=== PATIENT | female | born 1965 | race Caucasian/White ===

== ENCOUNTER 2023-05-25 12:44 | Outpatient (REF) | payer MEDICARE, MEDICAID, SELFPAY ==
[2023-05-27 14:47] LABS: H Pylori Breath Test Negative (Negative)
== END 2023-05-25 12:45 | disposition home or self-care (01) ==
LOC: HO.LNP 12:44
PROVIDERS: PCP Internal Medicine; Visit Provider Surgery
DX: R10.13 Epigastric pain (principal); R13.10 Dysphagia, unspecified; G80.9 Cerebral palsy, unspecified; K59.00 Constipation, unspecified; Z99.89 Dependence on other enabling machines and devices; Z11.0 Encounter for screening for intestinal infectious diseases
CPT/HCPCS: 83013; 99202; 99211

== ENCOUNTER 2023-05-25 12:44 | Outpatient (AMB) | payer MEDICARE, MEDICAID, SELFPAY ==
--- NOTE | 2023-05-25 12:46 | A.OFFVIS_ITS ---
Intake Vital Signs 05/25/23 12:53 Height 5 ft 3 in Weight 132 lb 4.438 oz BMI 23.4 BP 141/65 H Blood Pressure Location Rt brachial Position Sitting Temp 97.5 F Temp Source Tympanic Pulse Oximetry (%) 97 Oxygen Delivery Method Room Air Intake Visit Reasons: Abdominal Pain Intake Note: Pt c/o: nausea and vomiting x 6 months with pain mid abdomen Pie Cutter Required: No Asparagus Buncher: Asparagus Buncher Present Allergies No Known Allergies Allergy (Verified 05/25/23 12:56) HPI HPI Comments History of Present Illness Details The patient is a 57-year-old woman reports a history of cerebral palsy who scheduled an evaluation because of epigastric pain associated with dysphagia and vomiting. Patient denies any hematemesis or unexplained weight loss and also notes a history of constipation in spite of a bowel regiment which includes docusate, 100 mg b.i.d.. The patient is given permission to coordinate her care with her PCP and neurologist. She notes that over the past 6 months, she has been having difficulty initiating swallowing which is typically worse with solid food rather than liquids. She notes at times she will also feel very bloated and have fairly immediate emesis which is nonbloody. She reports a history of a colonoscopy in the past few years and also notes that she had blood work in the past month or so and requested that we reach out to her PCP to avoid duplications. She is on meloxicam but notes that she only takes it a few times a week. She does note some worsening dysphagia with pills. Past surgical history includes a C-spine fusion/diskectomy Jan, 2022 and a history of an appendectomy The patient uses a cane for balance and also notes that her tremulousness has worsened over the past 6 months. [facility] Surgical History (Updated 05/25/23 @ 13:29 by Renetta Yeboah CMA) Hx of appendectomy Hx of discectomy Social History (Updated 05/25/23 @ 13:00 by Renetta Yeboah CMA) Alcohol intake: current Alcohol intake frequency: a few times a month Alcohol type: beer Patient Tobacco Use Status: Never used Tobacco Review of Systems Const All systems reviewed & are unremarkable except as noted in HPI and below Reports as per HPI Physical Exam Vital Signs: Last Vital Signs Temp 97.5 F 05/25/23 12:53 BP 141/65 H 05/25/23 12:53 Pulse Ox 97 08/28/23 12:53 Oxygen Delivery Method Room Air 05/25/23 12:53 BMI result Body Mass Index 23.4 The patient is non-toxic & in good spirits NC/AT, PERRLA, EOMI Mood, affect & judgment all appear appropriate Sclera anicteric conjunctiva pink and moist Oropharynx is clear with no aphthous ulcers, Mallampati class 4, mucous membranes moist The patient appears to have some right-sided facial droop which she reports is chronic. She also intermittently stutters. Neck is supple with no masses, adenopathy or bruits Heart is regular, normal S1-S2 no rubs or murmurs Lungs are clear and equal anteriorly with no audible wheezing, rubs or dullness to percussion Abdomen is overweight with no demonstrable hernias. She reports epigastric pain on palpation but no HSM, rebound, rigidity, guarding, masses or bruits are present. Rectal exam is deferred Skin has good turgor and is free of rashes Extremities free of cyanosis clubbing edema Results Reviewed Results Reviewed: Will ask office staff to reach out to the patient's PCP and neurologist for most recent lab work as well as confirm that the patient has had a colonoscopy in the past couple years; any other GI procedures or interventions will also be requested Assessment & Plan Assessment & Plan (1) Acute epigastric pain: Code(s): R10.13 - Epigastric pain (2) Dysphagia: Code(s): R13.10 - Dysphagia, unspecified (3) Cerebral palsy: Code(s): G80.9 - Cerebral palsy, unspecified (4) Constipation: Code(s): K59.00 - Constipation, unspecified (5) Ambulates with cane: Code(s): Z99.89 - Dependence on other enabling machines and devices Plan The patient reports fairly constant epigastric pain; since she has an eaten for several hours, I have ordered an H pylori breath test and also sent a prescription for Protonix to her pharmacy with instructions to begin it either tonight or tomorrow. She is also instructed to continue taking the medication until she sees me in follow-up. There is no hematemesis, unexplained weight loss or odynophagia to mandate endoscopy at this time; I have ordered an upper GI with Gastrografin and fluoroscopy since the patient notes cervical esophagus initiation issues. We discussed that she may need an upper endoscopy and the option of being evaluated by a commissary superintendent but we will discuss at follow- up. We will obtain records from her PCP and neurologist. The patient is describing worsening constipation in spite of taking docusate, 100 mg b.i.d.. She may need to increase this dose but I want to be sure that her colonoscopy is up-to-date and there was no significant pathology. Using a teaching electrician rectifier maintenance we reviewed possible etiologies for epigastric pain and the possible need for additional testing which may include CT or ultrasound but that we would discuss this at her follow-up visit after I have reviewed her labs and upper GI. Her questions seemed to be satisfactorily answered. She is requested that I send a copy of this note to her both her PCP in her neurolog ist. Orders: Orders H Pylori Breath Test Today R10.13 - Epigastric pain FL upper GI series Today R10.13 - Epigastric pain, R13.10 - Dysphagia, unspecified Medications: New pantoprazole 40 mg PO DAILY 30 tabs 2RF Coding Level of Care Code New Pt Level 4 (50321) Diagnoses Acute epigastric pain R10.13 Dysphagia R13.10 Cerebral palsy G80.9 Constipation K59.00 Ambulates with cane Z99.89
[2023-05-25 12:53] VITALS: BP 141/65; TEMP 36.4; O2SAT 97; BMI 23.4
== END 2023-05-25 14:21 | disposition home or self-care (01) ==
PROVIDERS: PCP Internal Medicine; Visit Provider Surgery
DX: R10.13 Epigastric pain (principal); R13.10 Dysphagia, unspecified; G80.9 Cerebral palsy, unspecified; K59.00 Constipation, unspecified; Z99.89 Dependence on other enabling machines and devices
CPT/HCPCS: 99204

== ENCOUNTER 2023-07-31 07:59 | Outpatient (REF) | payer MEDICARE, MEDICAID, SELFPAY ==
--- NOTE | ~2023-07-31 | FL_ITS ---
EXAMINATION: XR FLUOROSCOPY UPPER GI WITH AIR CLINICAL INFORMATION: Dysphasia. Epigastric pain. Cerebral palsy COMPARISON: None TECHNIQUE: Fluoroscopic air contrast upper GI examination was performed utilizing standard techniques with thin and thick barium and effervescent granules. Numerous spot images were obtained. Several image hold fluoroscopic cine runs were also obtained. FINDINGS: Patient is status post anterior fusion of C5-C7. No indentation upon the superiormost esophagus. Lateral cine images of the oropharynx and hypopharynx demonstrate normal swallow mechanism with normal epiglottic inversion and soft palate elevation. There is trace penetration of the trachea with thick barium. No nasopharyngeal reflux present. Hypopharyngeal structures appear normal without evidence of mass or diverticulum. There was no significant cricopharyngeal achalasia. Dual and single contrast images of the esophagus demonstrate normal caliber, contour, and mucosal pattern. No evidence of stricture, mass, or ulcerations identified. Primary esophageal peristalsis was normal. There are some nonpropulsive tertiary contractions of the distal esophagus. A small hiatal hernia is present. Gastroesophageal reflux is seen up to the thoracic inlet. Dual contrast and single contrast images of the stomach demonstrated normal contour without evidence of mass. There is a small area of pooling in the fundus that may represent a small gastric ulcer. Contrast freely passed into the gastric antrum and duodenal bulb without delay. Single and air-contrast images of the duodenal bulb demonstrate no abnormality. The duodenal sweep has a normal appearance, course, and mucosal fold appearance. The imaged proximal jejunum has a normal fold pattern and caliber. FLUOROSCOPY TIME: 3 minutes 22 seconds Number of Spot Images: 12 Number of cine:5 DOSE AREA PRODUCT: 1755 uGy-m2 (microgray-meter squared) FL/FL upper GI series IMPRESSION: 1. Persistent mild penetration of the larynx with thick barium. No subglottic aspiration. 2. Small type I hiatal hernia. 3. Gastroesophageal reflux, significant. Mild esophageal dysmotility. 4. Small persistent focus of pooling of barium in the posterior fundus that may represent a small gastric ulcer. Correlation with endoscopy could be considered. This procedure was performed by Weston Fu PA-C, and supervised by Dr. Estrella
== END 2023-07-31 08:00 | disposition home or self-care (01) ==
LOC: HO.XRAY 07:59
PROVIDERS: Visit Provider Surgery
DX: R13.10 Dysphagia, unspecified (principal); R10.13 Epigastric pain
CPT/HCPCS: 74240

== ENCOUNTER → 2023-07-31 08:01 | Outpatient (BNV) | payer MEDICARE, MEDICAID, SELFPAY | PROVIDERS: Visit Provider Radiology Diagnostic Radiology | DX: G80.9 Cerebral palsy, unspecified (principal); R13.10 Dysphagia, unspecified; R10.13 Epigastric pain | CPT/HCPCS: 74246 ==

== ENCOUNTER 2023-08-06 12:50 | Outpatient (AMB) | payer MEDICARE, MEDICAID, SELFPAY ==
--- NOTE | 2023-08-06 12:53 | MHC.OFFVIS ---
Intake Vital Signs 08/06/23 12:58 Height 5 ft 3 in Weight 134 lb 14.766 oz BMI 23.9 BP 152/66 H Blood Pressure Location Lt brachial Position Sitting Pulse 99 Pulse Source Pulse Oximeter Temp 96.9 F Temp Source Tympanic Pulse Oximetry (%) 96 Oxygen Delivery Method Room Air Intake Visit Reasons: follow up hiatal hernia Allergies No Known Allergies Allergy (Verified 08/06/23 13:00) HPI HPI Comments History of Present Illness Details The patient is a 57-year-old woman reports a history of cerebral palsy who scheduled an evaluation because of epigastric pain associated with dysphagia and vomiting. Patient denies any hematemesis or unexplained weight loss and also notes a history of constipation in spite of a bowel regiment which includes docusate, 100 mg b.i.d.. The patient has had continued symptoms and notes no improvement from the pantoprazole that I prescribed at 40 mg daily. She notes ongoing issues with constipation as well as her dysphagia and GERD. She otherwise denies interval change. The patient has given me permission to coordinate her care with her PCP and neurologist. She notes that over the past 6 months, she has been having difficulty initiating swallowing which is typically worse with solid food rather than liquids. She notes at times she will also feel very bloated and have fairly immediate emesis which is nonbloody. She reports a history of a colonoscopy in the past few years and also notes that she had blood work in the past month or so and requested that we reach out to her PCP to avoid duplications. She is on meloxicam but notes that she only takes it a few times a week. She does note some worsening dysphagia with pills. Notes dated 05/08/2023 (104 pgs received) from the patient's PCP indicate that a GI referral was pending due to the patient's UGI complaints and symptoms. Past surgical history includes a C-spine fusion/diskectomy Jan, 2022 and a history of an appendectomy The patient uses a cane for balance and also notes that her tremulousness has worsened over the past 6 months. [facility] Surgical History Hx of discectomy Hx of appendectomy Social History Alcohol intake: current Alcohol intake frequency: a few times a month Alcohol type: beer Patient Tobacco Use Status: Never used Tobacco Review of Systems Const All systems reviewed & are unremarkable except as noted in HPI and below Reports as per HPI Physical Exam On exam, the patient is nontoxic She is anicteric She is in no acute distress and having no respiratory difficulty Results Reviewed Results Reviewed: Labs from mid April obtained from the PCP including hemoglobin of 14.4 with normochromic/normocytic indices, white blood cell count 5.7, platelet count 148 K BUN 15, creatinine 0.73, normal electrolytes Albumin 4.3 Diagnostic imaging Upper GI done here at [facility] on 07/31/23 showed esophageal dysmotility and a small hiatal hernia with GERD but no evidence of aspiration H.pylori breath test is negative. Assessment & Plan Assessment & Plan (1) Cerebral palsy: Code(s): G80.9 - Cerebral palsy, unspecified (2) Dysphagia: Code(s): R13.10 - Dysphagia, unspecified (3) Acute epigastric pain: Code(s): R10.13 - Epigastric pain (4) Constipation: Code(s): K59.00 - Constipation, unspecified (5) Ambulates with cane: Code(s): Z99.89 - Dependence on other enabling machines and devices (6) Hiatal hernia: Code(s): K44.9 - Diaphragmatic hernia without obstruction or gangrene Plan The patient is advised to stop the PPI at this time. The patient reviewed her calendar and noted that she saw her PCP and as notes indicate, however she thought that I was a middle school sports coach and could help facilitate her care given the dysphagia and constipation issues. We discussed the pros and cons of an EGD but given the esophageal dysmotility identified on upper GI, and lack of unexplained weight loss or hematemesis, the patient may benefit from a discussion with Gastroenterology since there is no acute surgical pathology that mandates operative intervention. Patient requested that I include her PCP to help facilitate the referral to GI as originally planned. I will see the patient again if a new surgical question arises. Coding Level of Care Code Est Pt Level 4 (20058) Diagnoses Cerebral palsy G80.9 Dysphagia R13.10 Acute epigastric pain R10.13 Constipation K59.00 Ambulates with cane Z99.89 Hiatal hernia K44.9
[2023-08-06 12:58] VITALS: BP 152/66; PULSE 99; TEMP 36.1; O2SAT 96; BMI 23.9
== END 2023-08-06 13:17 | disposition home or self-care (01) ==
PROVIDERS: PCP Internal Medicine; Visit Provider Surgery
DX: G80.9 Cerebral palsy, unspecified (principal); R13.10 Dysphagia, unspecified; R10.13 Epigastric pain; K59.00 Constipation, unspecified; Z99.89 Dependence on other enabling machines and devices; K44.9 Diaphragmatic hernia without obstruction or gangrene
CPT/HCPCS: 99214

== ENCOUNTER → 2023-08-06 12:50 | Outpatient (BNVA) | payer MEDICARE, MEDICAID, SELFPAY | PROVIDERS: PCP Internal Medicine; Visit Provider Surgery | DX: K59.00 Constipation, unspecified (principal); K44.9 Diaphragmatic hernia without obstruction or gangrene; R13.10 Dysphagia, unspecified; R10.13 Epigastric pain; G80.9 Cerebral palsy, unspecified; Z99.89 Dependence on other enabling machines and devices | CPT/HCPCS: 99212 ==

== ENCOUNTER 2023-09-03 12:18 | Outpatient (AMB) | payer MEDICARE, MEDICAID, SELFPAY ==
--- NOTE | 2023-09-03 12:28 | MHC.OFFVIS ---
Intake Vital Signs 09/03/23 12:40 Height 5 ft 3 in Weight 132 lb 11.492 oz BMI 23.5 BP 140/68 H Blood Pressure Location Lt brachial Position Sitting Pulse 86 Intake Visit Reasons: Esophageal dysmotility Intake Note: Patient presents to in office today as a new patient for esophageal dysmotility. CC: Patient referred by Dr. Ahmadi for EGD. She c/o constipation, nausea when she eats, abdominal bloating and feeling abdomen is hard . She denies choking with foods but states it's hard to swallow some time. Allergies No Known Allergies Allergy (Verified 09/03/23 12:46) HPI Esophageal dysmotility HPI Details 58-year-old female here for initial evaluation of esophageal dysmotility. She is referred by Dr. Ahmadi of our general surgery dept, but [facility]. PMX Tachycardia High cholesterol Constipation Dermatofibroma Hydronephrosis Cerebral palsy Stuttering Depression Degenerative disc disease of the cervical spine Shoulder pain * SURGICAL HISTORY Anterior cervical fusion Left thumb surgery status post fracture Appendectomy Tubal ligation section * ALLERGIES: NKDA * [employer] LABS: Laboratory Tests 05/25/23 18:20 H. pylori Breath T est Negative Labs supplied by PCP: 04/2023 unremarkable CBC, unremarkable renal panel, AST/ALT 44/45 mildly elevated with an alk-phos of 125 and normal bilirubin, lipase normal at 34. BARIUM SWALLOW 07/31/23 FINDINGS: Patient is status post anterior fusion of C5-C7. No indentation upon the superiormost esophagus. Lateral cine images of the oropharynx and hypopharynx demonstrate normal swallow mechanism with normal epiglottic inversion and soft palate elevation. There is trace penetration of the trachea with thick barium. No nasopharyngeal reflux present. Hypopharyngeal structures appear normal without evidence of mass or diverticulum. There was no significant cricopharyngeal achalasia. Dual and single contrast images of the esophagus demonstrate normal caliber, contour, and mucosal pattern. No evidence of stricture, mass, or ulcerations identified. Primary esophageal peristalsis was normal. There are some nonpropulsive tertiary contractions of the distal esophagus. A small hiatal hernia is present. Gastroesophageal reflux is seen up to the thoracic inlet. Dual contrast and single contrast images of the stomach demonstrated normal contour without evidence of mass. There is a small area of pooling in the fundus that may represent a small gastric ulcer. Contrast freely passed into the gastric antrum and duodenal bulb without delay. Single and air-contrast images of the duodenal bulb demonstrate no abnormality. The duodenal sweep has a normal appearance, course, and mucosal fold appearance. The imaged proximal jejunum has a normal fold pattern and caliber. FLUOROSCOPY TIME: 3 minutes 22 seconds Number of Spot Images: 12 Number of cine:5 DOSE AREA PRODUCT: 1755 uGy-m2 (microgray-meter squared) FL/FL upper GI series IMPRESSION: 1. Persistent mild penetration of the larynx with thick barium. No subglottic aspiration. 2. Small type I hiatal hernia. 3. Gastroesophageal reflux, significant. Mild esophageal dysmotility. 4. Small persistent focus of pooling of barium in the posterior fundus that may represent a small gastric ulcer. Correlation with endoscopy could be considered. TODAY'S VISIT. She has trouble initiating swallows, so I don't think the mild dysmotility is the problem. This is intermittent and is worse with pills or dry foods. I have a hard time eating, because at times I get nauseated and vomit and my stomach always gets bloats and gets hard. The N/V happens about 3 x a week. This has been a problem for about a year. It gradually got worse and worse. Her HB has also worsened. She was on pantoprazole but it did not help the HB so it was stopped, no bad effects. She is also very constipated, which has been a problem for about 10 years or more. She will only move her bowels about twice a week. She has used mirlalx and dulcolax and is on colace now. She has tried fiber, senna, MOM, enemas and none of these helped. She is concerned about the possible ulcer findings. She is interested in an EGD. Her last colonoscopy was about [address] [facility], and her father of CRC. I educate her that she should be on an colonoscopies every 5 years and urged her to check with her primary care provider about when her last 1 was just so she can keep herself colon cancer free. She also has RUQ pain intermittently that is an ache that at times is sharp, 6/10 lasting about 1/2 hour at no particular time. She has lost some wt r/t not being able to eat well. No FHX GB disease known. However she is agreeable to an ultrasound so that we can thoroughly rule out any other reason she may have gas burping and epigastric pain. Get TSH r/t CIC, I the worsening GERD because her constipation causing gas trapping and greater reflux. I do not think the swallowing that she describes, an issue with initiation of the swallow, being the problem is due to her esophageal dysmotility which is very mild on the study. Going we might consider a modified barium swallow with speech therapy to evaluate her neurologic coordination given her cerebral palsy. However since she has just been through the full barium swallow will put this off for a bit until we have more evidence. Start Linzess 145mcg and titrate continues colace. I am ordering an upper endoscopy to further explore her symptoms and to see if there is in fact any severe ulcer contributing to the upper abdominal presentation. There are no prior problems with anesthesia or sedation. She denies any cardiac or respiratory problems. There are no infectious disease problems. There is no known family history of esophageal or stomach cancer. ROV 6 wee4ks. [facility] Surgical History H/O colonoscopy History of section History of tubal ligation H/O thumb surgery Hx of discectomy Hx of appendectomy Family History Father Colon cancer Social History Alcohol intake: current Alcohol intake frequency: a few times a month Alcohol type: beer Patient Tobacco Use Status: Never used Tobacco Review of Systems Const Denies fatigue, Denies fever(s), Denies night sweats, Reports poor appetite and Reports weight loss ENT Reports Normal hearing present, Denies dental pain, Reports dysphagia, Denies hearing loss, Denies mouth pain, Denies odynophagia, Denies throat swelling, Denies tongue swelling and Reports other (Dentition adequate) Card Reports no additional complaints Resp Reports no additional complaints GI Reports abdominal pain, Denies melena, Reports bloating, Denies hematochezia, Reports constipation, Denies GI cramping, Reports dysphagia, Denies excessive flatus, Denies early satiety, Reports heartburn, Denies diarrhea, Denies nausea, Denies odynophagia, Denies vomiting and Denies hematemesis Musc Reports abnormal gait Skin/Breast Denies pruritus, Denies lesions, Denies rash and Denies jaundice Neuro Details: Profound stutter Reports Normal hearing present, Denies Abnormal speech present and Reports abnormal gait Psych Reports anxiety Endo Denies fatigue Aller/Immun Denies throat swelling and Denies tongue swelling Physical Exam Vital Signs: Last Vital Signs Pulse 86 09/03/23 12:40 BP 140/68 H 09/03/23 12:40 BMI result Body Mass Index 23.5 Const General: cooperative, no acute distress, well developed and well groomed Nutritional Appearance: well nourished Orientation/consciousness: oriented to person, oriented to place and oriented to time Limitations: No language barrier and ambulation with cane HEENT Head: Yes normocephalic and Yes atraumatic Eyes General: appearance normal, both eyes and all related structures Pupils: Equal, round and reactive pupils present Neck Neck: Yes normal visual inspection and Yes no lymphadenopathy Thyroid: Thyroid normal Resp Effort & Inspection: normal respiratory effort and able to speak in complete sentences Auscultation: clear to auscultation bilaterally Cardio Rate: regular rate Rhythm: regular rhythm Heart sounds: Normal, physiologic split S2 sound present Peripheral pulses: radial pulses present and posterior tibial pulses present GI Inspection: No distended and No Abdominal panniculus present Palpation (GI): Soft to palpation, nontender, no guarding, not rigid and No hepatosplenomegaly present Percussion: Yes normal to percussion Auscultation: normal bowel sounds Rectal Exam - Female: deferred Skin General skin exam: no rashes or lesions noted, turgor normal, skin not dry, no jaundice, No spider nevi and no striae Rashes: no rashes Nails: normal Neuro General: oriented to person, oriented to place and oriented to time Cranial nerves: Yes Equal, round and reactive pupils present and Yes Normal hearing present Speech: No Abnormal speech present Extrem General: Yes normal to inspection, No clubbing, No cyanosis and No edema Psych Appearance: grossly normal and well kempt Mental Status: mental status grossly normal Speech and movement: Normal speech and movement present Affect: normal affect Attitude: cooperative Thought process: Normal thought process present and not confabulating Thought content: Normal thought content present Insight: Limited insight present (Psych) Judgement: Limited judgement present (Psych) Results Reviewed Results Reviewed: Laboratory Tests 05/25/23 18:20 H. pylori Breath Test Negative Labs supplied by PCP: 04/2023 unremarkable CBC, unremarkable renal panel, AST/ALT 44/45 mildly elevated with an alk-phos of 125 and normal bilirubin, lipase normal at 34. BARIUM SWALLOW 07/31/23 FINDINGS: Patient is status post anterior fusion of C5-C7. No indentation upon the superiormost esophagus. Lateral cine images of the oropharynx and hypopharynx demonstrate normal swallow mechanism with normal epiglottic inversion and soft palate elevation. There is trace penetration of the trachea with thick barium. No nasopharyngeal reflux present. Hypopharyngeal structures appear normal without evidence of mass or diverticulum. There was no significant cricopharyngeal achalasia. Dual and single contrast images of the esophagus demonstrate normal caliber, contour, and mucosal pattern. No evidence of stricture, mass, or ulcerations identified. Primary esophageal peristalsis was normal. There are some nonpropulsive tertiary contractions of the distal esophagus. A small hiatal hernia is present. Gastroesophageal reflux is seen up to the thoracic inlet. Dual contrast and single contrast images of the stomach demonstrated normal contour without evidence of mass. There is a small area of pooling in the fundus that may represent a small gastric ulcer. Contrast freely passed into the gastric antrum and duodenal bulb without delay. Single and air-contrast images of the duodenal bulb demonstrate no abnormality. The duodenal sweep has a normal appearance, course, and mucosal fold appearance. The imaged proximal jejunum has a normal fold pattern and caliber. FLUOROSCOPY TIME: 3 minutes 22 seconds Number of Spot Images: 12 Number of cine:5 DOSE AREA PRODUCT: 1755 uGy-m2 (microgray-meter squared) FL/FL upper GI series IMPRESSION: 1. Persistent mild penetration of the larynx with thick barium. No subglottic aspiration. 2. Small type I hiatal hernia. 3. Gastroesophageal reflux, significant. Mild esophageal dysmotility. 4. Small persistent focus of pooling of barium in the posterior fundus that may represent a small gastric ulcer. Correlation with endoscopy could be considered. Assessment & Plan Assessment & Plan (1) Chronic idiopathic constipation: Code(s): K59.04 - Chronic idiopathic constipation (2) RUQ abdominal pain: Code(s): R10.11 - Right upper quadrant pain (3) Pre-op examination: Code(s): Z01.818 - Encounter for other preprocedural examination Plan She has trouble initiating swallows, so I don't think the mild dysmotility is the problem. This is intermittent and is worse with pills or dry foods. I have a hard time eating, because at times I get nauseated and vomit and my stomach always gets bloats and gets hard. The N/V happens about 3 x a week. This has been a problem for about a year. It gradually got worse and worse. Her HB has also worsened. She was on pantoprazole but it did not help the HB so it was stopped, no bad effects. She is also very constipated, which has been a problem for about 10 years or more. She will only move her bowels about twice a week. She has used mirlalx and dulcolax and is on colace now. She has tried fiber, senna, MOM, enemas and none of these helped. She is concerned about the possible ulcer findings. She is interested in an EGD. Her last colonoscopy was about [address] [facility], and her father of CRC. I educate her that she should be on an colonoscopies every 5 years and urged her to check with her primary care provider about when her last 1 was just so she can keep herself colon cancer free. She also has RUQ pain intermittently that is an ache that at times is sharp, 6/10 lasting about 1/2 hour at no particular time. She has lost some wt r/t not being able to eat well. No FHX GB disease known. However she is agreeable to an ultrasound so that we can thoroughly rule out any other reason she may have gas burping and epigastric pain. Get TSH r/t CIC, I the worsening GERD because her constipation causing gas trapping and greater reflux. I do not think the swallowing that she describes, an issue with initiation of the swallow, being the problem is due to her esophageal dysmotility which is very mild on the study. Going we might consider a modified barium swallow with speech therapy to evaluate her neurologic coordination given her cerebral palsy. However since she has just been through the full barium swallow will put this off for a bit until we have more evidence. Start Linzess 145mcg and titrate continues colace. I am ordering an upper endoscopy to further explore her symptoms and to see if there is in fact any severe ulcer contributing to the upper abdominal presentation. There are no prior problems with anesthesia or sedation. She denies any cardiac or respiratory problems. There are no infectious disease problems. There is no known family history of esophageal or stomach cancer. ROV 6 wee4ks. Orders: Orders US abdomen complete Today R10.11 - Right upper quadrant pain EGD with [facility] - GI Use Only Today TSH reflex Free T4 Today K59.04 - Chronic idiopathic constipation Medications: New linaclotide (Linzess) 145 mcg PO QAM 30 caps 6RF K59.04 - Chronic idiopathic constipation, Z80.0 - Family history of malignant neoplasm of digestive organs Coding Level of Care Code New Pt Level 3 (62022) Diagnoses Chronic idiopathic constipation K59.04 RUQ abdominal pain R10.11 Pre-op examination Z01.818
[2023-09-03 12:40] VITALS: BP 140/68; PULSE 86; BMI 23.5
== END 2023-09-03 13:25 | disposition home or self-care (01) ==
PROVIDERS: PCP Internal Medicine; Visit Provider Nurse Practitioner
DX: K59.04 Chronic idiopathic constipation (principal); R10.11 Right upper quadrant pain; Z01.818 Encounter for other preprocedural examination
CPT/HCPCS: 99203

== ENCOUNTER 2023-09-03 12:18 | Outpatient (REF) | payer MEDICARE, MEDICAID, SELFPAY ==
[2023-09-03 15:00] LABS: TSH reflex Free T4 1.09 uIU/mL (0.32-4.0)
== END 2023-09-03 12:19 | disposition home or self-care (01) ==
LOC: HO.LAB 12:18
PROVIDERS: PCP Internal Medicine; Visit Provider Nurse Practitioner
DX: Z01.818 Encounter for other preprocedural examination (principal); K59.04 Chronic idiopathic constipation; K22.89 Other specified disease of esophagus; R11.0 Nausea; R10.11 Right upper quadrant pain; Z80.0 Family history of malignant neoplasm of digestive organs
CPT/HCPCS: 36415; 84443; 99202

== ENCOUNTER 2023-10-09 09:36 | Outpatient (REF) | payer MEDICARE, MEDICAID, SELFPAY ==
--- NOTE | ~2023-10-09 | US_ITS ---
EXAMINATION: US ABDOMEN COMPLETE CLINICAL INFORMATION: Right upper quadrant pain. COMPARISON: None available. TECHNIQUE: Real-time imaging of the abdominal viscera. FINDINGS: PANCREAS: Pancreas is unremarkable. The pancreatic tail are obscured by bowel gas. ABDOMINAL AORTA: The proximal, mid, and distal segments are normal in caliber. INFERIOR VENA CAVA: Visualized portions are normal. LIVER: Normal. The liver is normal in size. The liver contour is normal. Parenchymal echogenicity is normal. No focal hepatic lesion. There is no intrahepatic biliary duct dilatation seen. GALLBLADDER: Normal. The gallbladder is physiologically distended without evidence of stones, sludge, polyps, wall thickening or pericholecystic fluid. COMMON BILE DUCT: Normal in caliber measuring 0.2 cm in diameter. RIGHT KIDNEY: There is mild pelvic fullness of right kidney No hydronephrosis. No renal calculi or focal parenchymal lesions. The kidney measures 10.4 cm in maximum dimension. LEFT KIDNEY: There is mild pelvic fullness. No hydronephrosis. No renal calculi or focal parenchymal lesions. The kidney measures 9.2 cm in maximum dimension. SPLEEN: Normal. The spleen measures 10.3 cm in maximum dimension. FREE FLUID: None. US/US abdomen complete IMPRESSION: Mild bilateral pelvic fullness. Seen No other abnormal findings
== END 2023-10-09 09:37 | disposition home or self-care (01) ==
LOC: HO.US 09:36
PROVIDERS: PCP Internal Medicine; Visit Provider Nurse Practitioner
DX: R10.11 Right upper quadrant pain (principal)
CPT/HCPCS: 76700

== ENCOUNTER 2023-10-15 12:52 | Outpatient (AMB) | payer MEDICARE, MEDICAID, SELFPAY ==
--- NOTE | 2023-10-15 12:59 | A.OFFVIS_ITS ---
Intake Vital Signs 10/15/23 13:13 Height 5 ft 3 in Weight 134 lb 7.712 oz BMI 23.8 BP 129/75 Blood Pressure Location Lt brachial Position Sitting Pulse 89 Intake Visit Reasons: 6 week follow up Intake Note: Patient presents to in office today in follow up of US and labs. CC: Patient continues to c/o constipation, nausea when she eats, and abdominal bloating. Denies new GI symptoms today. [employer] Required: No Allergies No Known Allergies Allergy (Verified 10/15/23 13:20) HPI 6 week follow up HPI Details Assessment & Plan (1) Chronic idiopathic constipation: Code(s): K59.04 - Chronic idiopathic constipation (2) RUQ abdominal pain: Code(s): R10.11 - Right upper quadrant pain (3) Pre-op examination: Code(s): Z01.818 - Encounter for other preprocedural examination Plan She has trouble initiating swallows, so I don't think the mild dysmotility is the problem. This is intermittent and is worse with pills or dry foods. I have a hard time eating, because at times I get nauseated and vomit and my stomach always gets bloats and gets hard. The N/V happens about 3 x a week. This has been a problem for about a year. It gradually got worse and worse. Her HB has also worsened. She was on pantoprazole but it did not help the HB so it was stopped, no bad effects. She is also very constipated, which has been a problem for about 10 years or more. She will only move her bowels about twice a week. She has used mirlalx and dulcolax and is on colace now. She has tried fiber, senna, MOM, enemas and none of these helped. She is concerned about the possible ulcer findings. She is interested in an EGD. Her last colonoscopy was about 8 years ago at [facility], and her father of CRC. I educate her that she should be on an colonoscopies every 5 years and urged her to check with her primary care provider about when her last 1 was just so she can keep herself colon cancer free. She also has RUQ pain intermittently that is an ache that at times is sharp, 6/10 lasting about 1/2 hour at no particular time. She has lost some wt r/t not being able to eat well. No FHX GB disease known. However she is agreeable to an ultrasound so that we can thoroughly rule out any other reason she may have gas burping and epigastric pain. Get TSH r/t CIC, I the worsening GERD because her constipation causing gas trapping and greater reflux. I do not think the swallowing that she describes, an issue with initiation of the swallow, being the problem is due to her esophageal dysmotility which is very mild on the study. Going we might consider a modified barium swallow with speech therapy to evaluate her neurologic coordination given her cerebral palsy. However since she has just been through the full barium swallow will put this off for a bit until we have more evidence. Start Linzess 145mcg and titrate continues colace. I am ordering an upper endoscopy to further explore her symptoms and to see if there is in fact any severe ulcer contributing to the upper abdominal presentation. There are no prior problems with anesthesia or sedation. She denies any cardiac or respiratory problems. There are no infectious disease problems. There is no known family history of esophageal or stomach cancer. ROV 6 [id number]. Orders: Orders US abdomen complet e Today R10.11 - Right upp er quadrant pain EGD with Lozoya - G I Use Only Today TSH reflex Free T4 Today K59.04 - Chronic i diopathic constipa tion Medications: New linaclotide (Linze ss) 145 mcg PO QAM 30 caps 6RF K59.04 - Chronic i diopathic constipa tion, Z80.0 - Fami ly history of jim gnant neoplasm of digestive organs LABS: Laboratory Tests 09/03/23 13:42 TSH 1.09 ULTRASOUND OF THE ABDOMEN 10/12/23 FINDINGS: PANCREAS: Pancreas is unremarkable. The pancreatic tail are obscured by bowel gas. ABDOMINAL AORTA: The proximal, mid, and distal segments are normal in caliber. INFERIOR VENA CAVA: Visualized portions are normal. LIVER: Normal. The liver is normal in size. The liver contour is normal. Parenchymal echogenicity is normal. No focal hepatic lesion. There is no intrahepatic biliary duct dilatation seen. GALLBLADDER: Normal. The gallbladder is physiologically distended without evidence of stones, sludge, polyps, wall thickening or pericholecystic fluid. COMMON BILE DUCT: Normal in caliber measuring 0.2 cm in diameter. RIGHT KIDNEY: There is mild pelvic fullness of right kidney No hydronephrosis. No renal calculi or focal parenchymal lesions. The kidney measures 10.4 cm in maximum dimension. LEFT KIDNEY: There is mild pelvic fullness. No hydronephrosis. No renal calculi or focal parenchymal lesions. The kidney measures 9.2 cm in maximum dimension. SPLEEN: Normal. The spleen measures 10.3 cm in maximum dimension. FREE FLUID: None. US/US abdomen complete IMPRESSION: Mild bilateral pelvic fullness. Seen No other abnormal findings EGD SCHEDULED FOR 12/04/2023 BIOPSY TODAY'S VISIT We review her results and it does not appear that the GB is c/t her bloating etc, atleast not from a gallstone pathology. She has had some relief from this with the LInzess, but at the 145mcg level she had to take it qod r/t diarrhea. We will reduce the dose to 72mcg. IF this is too strong we will change to Amitiza. Her RUQ abdominal pain, however, has resolved...so this was likely r/t CIC. I let her know that there were some findings on her barium swallow study that seem to indicate some pre aspiration with laryngeal penetration that did not reach the vocal cord level and this is usually perpetuated by a neurological problem with swallowing and coordinating of the opening and closing of the glottis. This likely is related to her cerebral palsy, however depending on what we find on the EGD we can modify this view. It is also possible that there is some globus sensation happening because of under-treated GERD. The barium swallow also showed a fairly large amount of GERD so I think we should put her on some Pepcid at night and treat this despite the fact that she took pantoprazole in the past without any resolution of her symptoms. Again we can modify this treatment depending on the findings of the EGD. Going forward we can consider if a modified barium swallow involving speech pathology is appropriate. Return office visit in 3-4 weeks to titrate her medications. [facility] Medical History (Updated 10/15/23 @ 14:23 by ADARSH Arteaga) Hiatal hernia Ambulates with cane Dysphagia Acute epigastric pain Surgical History H/O colonoscopy History of section History of tubal ligation H/O thumb surgery Hx of discectomy Hx of appendectomy Family History Father Colon cancer Social History Alcohol intake: current Alcohol intake frequency: a few times a month Alcohol type: beer Patient Tobacco Use Status: Never used Tobacco Review of Systems Const Denies fatigue, Denies fever(s), Denies night sweats, Reports poor appetite and Denies weight loss Eyes Details: glasses Reports requires corrective lenses ENT Reports Normal hearing present, Denies dental pain, Reports dysphagia, Denies hearing loss, Denies mouth pain, Denies odynophagia, Denies throat swelling, Denies tongue swelling and Reports other (Dentition adequate) Card Reports no additional complaints Resp Reports no additional complaints GI Denies abdominal pain, Denies melena, Reports bloating, Denies hematochezia, Reports constipation, Denies GI cramping, Reports dysphagia, Denies excessive flatus, Denies early satiety, Denies heartburn, Denies diarrhea, Reports nausea, Denies odynophagia, Denies vomiting and Denies hematemesis Skin/Breast Denies pruritus, Denies lesions, Denies rash and Denies jaundice Neuro Reports Normal hearing present and Denies Abnormal speech present Endo Denies fatigue Aller/Immun Denies throat swelling and Denies tongue swelling Physical Exam Vital Signs: Last Vital Signs Pulse 89 10/15/23 13:13 BP 129/75 10/15/23 13:13 BMI result Body Mass Index 23.8 Const General: cooperative, no acute distress, well developed and well groomed Nutritional Appearance: average body habitus and well nourished Orientation/consciousness: oriented to person, oriented to place and oriented to time Limitations: No language barrier HEENT Head: Yes normocephalic and Yes atraumatic Eyes General: appearance normal, both eyes and all related structures Pupils: Equal, round and reactive pupils present Neck Neck: Yes normal visual inspection and Yes no lymphadenopathy Thyroid: Thyroid normal Resp Effort & Inspection: normal respiratory effort and able to speak in complete sentences Auscultation: clear to auscultation bilaterally Cardio Rate: regular rate Rhythm: regular rhythm Heart sounds: Normal, physiologic split S2 sound present Peripheral pulses: radial pulses present and posterior tibial pulses present GI Inspection: No distended and No Abdominal panniculus present Palpation (GI): Soft to palpation, nontender, no guarding, not rigid and No hepatosplenomegaly present Percussion: Yes normal to percussion Auscultation: normal bowel sounds Rectal Exam - Female: deferred Skin General skin exam: no rashes or lesions noted, turgor normal, skin not dry, no jaundice, No spider nevi and no striae Rashes: no rashes Nails: normal Neuro General: oriented to person, oriented to place and oriented to time Cranial nerves: Yes Equal, round and reactive pupils present and Yes Normal hearing present Speech: No Abnormal speech present Extrem General: Yes normal to inspection, No clubbing, No cyanosis and No edema Psych Appearance: grossly normal and well kempt Mental Status: mental status grossly normal Speech and movement: No Normal speech and movement present (Intermittently delayed speech with a stutter) Affect: normal affect Attitude: cooperative Thought process: Normal thought process present and not confabulating Thought content: Normal thought content present Insight: Fair insight present (Psych) and Limited insight present (Psych) Judgement: Fair judgement present (Psych) and Limited judgement present (Psych) Results Reviewed Results Reviewed: Laboratory Tests 09/03/23 13:42 TSH 1.09 ULTRASOUND OF THE ABDOMEN 10/12/23 FINDINGS: PANCREAS: Pancreas is unremarkable. The pancreatic tail are obscured by bowel gas. ABDOMINAL AORTA: The proximal, mid, and distal segments are normal in caliber. INFERIOR VENA CAVA: Visualized portions are normal. LIVER: Normal. The liver is normal in size. The liver contour is normal. Parenchymal echogenicity is normal. No focal hepatic lesion. There is no intrahepatic biliary duct dilatation seen. GALLBLADDER: Normal. The gallbladder is physiologically distended without evidence of stones, sludge, polyps, wall thickening or pericholecystic fluid. COMMON BILE DUCT: Normal in caliber measuring 0.2 cm in diameter. RIGHT KIDNEY: There is mild pelvic fullness of right kidney No hydronephrosis. No renal calculi or focal parenchymal lesions. The kidney measures 10.4 cm in maximum dimension. LEFT KIDNEY: There is mild pelvic fullness. No hydronephrosis. No renal calculi or focal parenchymal lesions. The kidney measures 9.2 cm in maximum dimension. SPLEEN: Normal. The spleen measures 10.3 cm in maximum dimension. FREE FLUID: None. US/US abdomen complete IMPRESSION: Mild bilateral pelvic fullness. Seen No other abnormal findings Assessment & Plan Assessment & Plan (1) Chronic idiopathic constipation: Code(s): K59.04 - Chronic idiopathic constipation (2) RUQ abdominal pain: Code(s): R10.11 - Right upper quadrant pain (3) GERD (gastroesophageal reflux disease): Code(s): K21.9 - Gastro-esophageal reflux disease without esophagitis (4) Family history of colon cancer in father: Comment: at age 76 Code(s): Z80.0 - Family history of malignant neoplasm of digestive organs (5) Esophageal dysmotility: Code(s): K22.4 - Dyskinesia of esophagus (6) Aspiration of gastric contents into larynx: Comment: Mild and not entering the lower airway, on full barium swallow. Code(s): T17.318A - Gastric contents in larynx causing other injury, initial encounter Plan EGD SCHEDULED FOR 12/04/2023 BIOPSY TODAY'S VISIT We review her results and it does not appear that the GB is c/t her bloating etc, at least not from a gallstone pathology. I do educate her about her renal fullness which is listed as hydronephrosis from her primary care file. Apparently she was unaware of this I tell her this is a mild condition and most likely her primary simply monitoring it since her renal function appears to be normal. She has had some relief from this with the LInzess, but at the 145mcg level she had to take it qod r/t diarrhea. We will reduce the dose to 72mcg. IF this is too strong we will change to Amitiza. Her RUQ abdominal pain, however, has resolved...so this was likely r/t CIC. She continues to have a poor appetite as she finds that she can only eat small amounts combined with the nausea leads me to think about gastric emptying as a possible cause. I think will order a gastric emptying study since taking quite a while to get the studies done just in case the upper endoscopy comes up empty in terms of pathology to explain her symptoms. I explained this to her and she is agreeable. I let her know that there were some findings on her barium swallow study that seem to indicate some pre aspiration with laryngeal penetration that did not reach the vocal cord level and this is usually perpetuated by a neurological problem with swallowing and coordinating of the opening and closing of the glottis. This likely is related to her cerebral palsy, however depending on what we find on the EGD we can modify this view. It is also possible that there is some globus sensation happening because of under-treated GERD. The barium swallow also showed a fairly large amount of GERD so I think we should put her on some Pepcid at night and treat this despite the fact that she took pantoprazole in the past without any resolution of her symptoms. Again we can modify this treatment depending on the findings of the EGD. Going forward we can consider if a modified barium swallow involving speech pathology is appropriate. Return office visit in 3-4 weeks to titrate her medications. Orders: Orders NM gastric emptying study Today R68.81 - Early satiety Medications: New linaclotide (Linzess) 72 mcg PO QAM 30 caps 6RF K59.04 - Chronic idiopathic constipation famotidine (Pepcid) 40 mg PO BEDTIME 30 tabs 6RF K21.9 - Gastro-esophageal reflux disease without esophagitis Discontinued linaclotide (Linzess) Discontinued Reason: Doctor's Order 145 mcg PO QAM 30 caps 6RF K59.04 - Chronic idiopathic constipation, Z80.0 - Family history of malignant neoplasm of digestive organs Coding Level of Care Code Est Pt Level 4 (81212) Diagnoses Chronic idiopathic constipation K59.04 RUQ abdominal pain R10.11 GERD (gastroesophageal reflux disease) K21.9 Family history of colon cancer in father Z80.0 Esophageal dysmotility K22.4 Aspiration of gastric contents into larynx T17.318A Time Spent (min) 33
[2023-10-15 13:13] VITALS: BP 129/75; PULSE 89; BMI 23.8
== END 2023-10-15 13:31 | disposition home or self-care (01) ==
PROVIDERS: PCP Internal Medicine; Visit Provider Nurse Practitioner
DX: K59.04 Chronic idiopathic constipation (principal); R10.11 Right upper quadrant pain; K21.9 Gastro-esophageal reflux disease without esophagitis; Z80.0 Family history of malignant neoplasm of digestive organs; K22.4 Dyskinesia of esophagus; T17 Foreign body in respiratory tract
CPT/HCPCS: 99214

== ENCOUNTER → 2023-10-15 12:52 | Outpatient (BNVA) | payer MEDICARE, MEDICAID, SELFPAY | PROVIDERS: PCP Internal Medicine; Visit Provider Nurse Practitioner | DX: K59.04 Chronic idiopathic constipation (principal); K21.9 Gastro-esophageal reflux disease without esophagitis; T17 Foreign body in respiratory tract; K22.4 Dyskinesia of esophagus; R10.11 Right upper quadrant pain; Z80.0 Family history of malignant neoplasm of digestive organs | CPT/HCPCS: 99212 ==

== ENCOUNTER → 2023-12-17 07:48 | Outpatient (REF) | payer MEDICARE, MEDICAID, SELFPAY ==
--- NOTE | ~2023-12-17 | NM_ITS ---
EXAMINATION: RADIONUCLIDE SOLID FOOD GASTRIC EMPTYING 4-HOUR STUDY CLINICAL INFORMATION: Early satiety. COMPARISON: No previous gastric emptying studies available for comparison. TECHNIQUE: A standard meal consisting of 4 oz of Egg Beaters brand equivalent tagged was 1.0 mCi Tc-99m Sulfur Colloid, 8 oz water and 2 slices of toast with jelly was administered orally to the patient. Images were obtained using a dual head gamma camera in the anterior and posterior projections over of the stomach immediately post ingestion and at hourly intervals up to 4 hours post ingestion. The anterior and posterior counts at each time interval were averaged using the geometric mean and expressed as percentage of the immediate post ingestion counts. FINDINGS: There is good visualization of activity in the stomach immediately post ingestion. As the study progresses, there is good clearance of activity from the stomach and visualization of progressively increasing small bowel activity. By the end of the study, there is almost no retention noted in the stomach. Retention in the stomach at each time interval was: 1 hour 66% (normal 37%-90%) 2 hours 17% (normal 30%-60%) 3 hours 6% 4 hours 4% (normal 0%-10%) NM/NM gastric emptying study IMPRESSION: Normal 4-hour solid food gastric emptying study. Gastric emptying study grading per JNMT Consensus Recommendations in 2008: https://tech.snmjournals.org/content/36/1/44 Grade 1 (mild retention): 11-20% at 4 hours Grade 2 (moderate retention): 21-35% at 4 hours Grade 3 (severe retention): 36-50% at 4 hours Grade 4 (very severe retention): >50% retention at 4 hours
== END ==
LOC: HO.NUCMED 07:48
PROVIDERS: PCP Internal Medicine; Visit Provider Nurse Practitioner
DX: R68.81 Early satiety (principal)
CPT/HCPCS: 78264; A9541

== ENCOUNTER 2023-12-24 09:14 | Day surgery (SDC) | payer MEDICARE, MEDICAID, SELFPAY ==
[2023-12-22 11:00] VITALS: BMI 23.7
--- NOTE | 2023-12-23 08:57 | HO.ANESPROP2 ---
Documented by User: Savannah Hernández NP 12/23/23 08:57 HPI - Anesthesia Eval Consult details Narrative: 58yo F for Upper Endoscopy PMFSH Active Problems Active Problems: All Active Problems (Updated 12/22/23 @ 10:58 by Yolanda Venegas RN) Aspiration of gastric contents into larynx (Acute) Esophageal dysmotility (Acute) GERD (gastroesophageal reflux disease) (Acute) RUQ abdominal pain (Acute) Family history of colon cancer in father (Acute) Chronic idiopathic constipation (Acute) Shoulder pain (Acute) Depression (Acute) Stuttering (Acute) Hydronephrosis (Acute) Dermatofibroma (Acute) High cholesterol (Acute) Cerebral palsy (Acute) Past Medical History Medical History Cerebral palsy Elevated cholesterol Depression GERD (gastroesophageal reflux disease) Hiatal hernia Ambulates with cane Dysphagia Acute epigastric pain Family History Family History Father Colon cancer Surgical History Surgical History History of surgery H/O colonoscopy History of section History of tubal ligation H/O thumb surgery Hx of discectomy Hx of appendectomy Social History Social History Alcohol intake: current Alcohol intake frequency: a few times a month Alcohol type: beer Patient Tobacco Use Status: Never used Tobacco Use of substances other than those prescribed or required for medical reasons: No Are you DNR?: No Advance Directives: No Advance Directives Information Provided: Yes Meds Allergies Allergy/AdvReac Type Severity Reaction Status Date / Time No Known Allergies Allergy Verified 10/15/23 13:20 Home Medications Medication Instructions Recorded Confirmed Last Taken Type docusate sodium 100 mg capsule 100 mg PO BID 05/25/23 12/22/23 Unknown History multivitamin (Daily Vitamin 1 tab PO DAILY 05/25/23 12/22/23 Unknown History Formula tablet) baclofen 10 mg tablet 10 mg PO BID 09/03/23 12/22/23 12/24/23 History citalopram 40 mg tablet 40 mg PO .morning 09/03/23 12/22/23 12/24/23 History clonazepam 0.5 mg tablet 0.5 mg PO BID 09/03/23 12/22/23 12/24/23 History simvastatin 20 mg tablet 20 mg PO BEDTIME 09/03/23 12/22/23 Unknown History Exam Height,Weight and Vital Signs: Height 5 ft 3 in Weight 60.781 kg Assessment and Plan Assessment Anesthesia Assessment: Chart Reviewed Documented by User: Mary Lou Donnelly MD 12/24/23 11:01 PMF Active Problems Active Problems: All Active Problems (Updated 12/24/23 @ 10:37 by Mary Lou Donnelly MD) Aspiration of gastric contents into larynx (Acute) Esophageal dysmotility (Acute) GERD (gastroesophageal reflux disease) (Acute) RUQ abdominal pain (Acute) Family history of colon cancer in father (Acute) Chronic idiopathic constipation (Acute) Shoulder pain (Acute) Depression (Acute) Stuttering (Acute) Hydronephrosis (Acute) Dermatofibroma (Acute) High cholesterol (Acute) Cerebral palsy (Acute) Past Medical History Medical History Cerebral palsy Elevated cholesterol Depression GERD (gastroesophageal reflux disease) Hiatal hernia Ambulates with cane Dysphagia Acute epigastric pain Family History Family History Father Colon cancer Family history of problems with anesthesia: No Surgical History Surgical History History of surgery H/O colonoscopy History of section History of tubal ligation H/O thumb surgery Hx of discectomy Hx of appendectomy History of Problems with Anesthesia: No Social History Social History Alcohol intake: current Alcohol intake frequency: a few times a month Alcohol type: beer Patient Tobacco Use Status: Never used Tobacco Use of substances other than those prescribed or required for medical reasons: No Are you DNR?: No Advance Directives: No Advance Directives Information Provided: Yes Meds Allergies Allergy/AdvReac Type Severity Reaction Status Date / Time No Known Allergies Allergy Verified 10/15/23 13:20 Home Medications Medication Instructions Recorded Confirmed Last Taken Type docusate sodium 100 mg capsule 100 mg PO BID 05/25/23 12/22/23 Unknown History multivitamin (Daily Vitamin 1 tab PO DAILY 05/25/23 12/22/23 Unknown History Formula tablet) baclofen 10 mg tablet 10 mg PO BID 09/03/23 12/22/23 12/24/23 History citalopram 40 mg tablet 40 mg PO .morning 09/03/23 12/22/23 12/24/23 History clonazepam 0.5 mg tablet 0.5 mg PO BID 09/03/23 12/22/23 12/24/23 History simvastatin 20 mg tablet 20 mg PO BEDTIME 09/03/23 12/22/23 Unknown History Exam Height,Weight and Vital Signs: Height 5 ft 3 in Weight 60.781 kg Vital Signs Temp Pulse Resp BP Pulse Ox O2 Del Method 12/24/23 10:39 97.8 F 70 16 138/89 97 Room Air Airway Mallampati Class: III (Slight Deviation of tongue to right. Small mouth) TM Dist: >3cm Neck ROM: Full Heart: RRR Lungs: CTAB Assessment and Plan Assessment Anesthesia Assessment: Anesthesia Plan Discussed and Chart Reviewed Final Anesthetic Review Family History of Problems with Anesthesia: No History of Problems with Anesthesia: No NPO: Yes ASA Class: III Final Preanesthetic Review: No Changes in Pt Med Stat, Meds/Allgs Chart Reviewed, Consent Obtained/Reviewed and Anes Risks/Benef Reviewed Patient Risk: Intermediate Procedure Risk: Low Assessment/Block/Sedation in SS: Assess/Block/Sedation-SS Anesthetic Plan Anesthetic Plan: GA, MAC: and TIVA Disposition: Standard PACU
[2023-12-24 10:28] VITALS: BMI 24.1
[2023-12-24 10:39] VITALS: BP 138/89; PULSE 70; RESP 16; TEMP 36.6; O2SAT 97
[2023-12-24] MEDS: Lactated Ringers 1,000 ML 100 ML IVCONT (10:48)
--- NOTE | 2023-12-24 11:43 | MHC.SHP ---
Pre-Procedural Eval Section A - 24 Hr Update-Section A only Date of Service: 12/24/23 Section B - Complete if H&P > 30 days Chief Complaint: Right upper quadrant pain Details of Present Illness: dysphagia and abn upper GI series ?fundic ulcers Relevant Family History (Specify if Yes): No Relevant Social History: None Present Medications: see Short Stay Collaborative assessment Medical History: Significant History (Cerebral palsy Elevated cholesterol Depression GERD (gastroesophageal reflux disease) Hiatal hernia Ambulates with cane Dysphagia Acute epigastric pain) History of Previous Operations: Relevant previous surgery/procedure and date(s) (History of surgery H/O colonoscopy History of section History of tubal ligation H/O thumb surgery Hx of discectomy Hx of appendectomy) Allergies: Allergies Allergy/AdvReac Type Severity Reaction Status Date / Time No Known Allergies Allergy Verified 10/15/23 13:20 Review of Systems Sugical H&P ROS: Negative: Constitution, Cardiovascular, Respiratory, Neurological, Psychiatric, Hem-Onc, Allergic/Immunologic, Gastrointestinal, Genitourinary, Musculoskeletal, Integumentary, Endocrine and Eyes/Ears/Nose/Throat Exam Surgical H&P Exam: Normal: HEENT, Normal: Heart, Normal: Lungs, Normal: Extremities, Normal: Abdomen and Normal: Skin and Significant Findings: Neurological (dysarthria ) Plan Diagnosis/Plan: Unchanged I have reviewed the history and physical and performed a pertinent physical examination on my patient. No changes have occurred unless specified. Time Spent With Patient Time: Total time managing care of this patient today ____ minutes.
--- NOTE | 2023-12-24 12:13 | W.PM.OPN ---
Operative Note Operative Note Date of Service: 12/24/23 Narrative: Procedure Description: EGD Indication: dysphagia Anesthesia: MAC FLEXIBLE TRANSORAL UPPER GASTROINTESTINAL ENDOSCOPY UPPER ENDOSCOPY Consent: Indications for the procedure and potential complications of bleeding, perforation, reaction to medications and missed diagnosis were discussed with the patient and informed consent was obtained. Instrument: Olympus GIF H 190 J mid size upper endoscope Monitoring: Vital signs and clinical assessment, continuous EKG monitoring, Pulse oximetry, Carbon Dioxide monitoring and blood pressure monitoring were done throughout the procedure. Procedure: The patient was placed in the left lateral decubitis position and pre-procedure medications were administered and a bite block was placed. The endoscope was inserted into the mouth and advanced under direct vision to the third part of duodenum. A careful inspection was made as the upper endoscope was withdrawn including a retroflexed examination of the proximal stomach; Findings and interventions are described below. Findings: Larynx:normal Esophagus: GE junction at 33 cm, diaphragm hiatus at 35 cm, bogginess and erythema at GEJ, bx taken from here and from distal and proximal esophagus, balloon dilation done to 20 mm at UES and lower esophagus, no tears seen Stomach: patchy erythema . Biopsies were obtained. Grade 2 flap valve on retroflexed examination of the cardia. Scattered fundic gland polyps noted, benign appearing Duodenum: Normal bulb and descending duodenum, Intervention: Biopsies as noted above, balloon dilation Impression/Findings: gastritis esophagitis hiatal hernia esophagitis fundic gland polyps PLAN: optimize medical management of GERd, can use PPI GERD precautions
[2023-12-24 12:20] VITALS: BP 112/55; PULSE 75; RESP 12; TEMP 36.2; O2SAT 95
[2023-12-24 12:35] VITALS: BP 119/68; PULSE 91; RESP 18; TEMP 36.2; O2SAT 96
== END 2023-12-24 13:10 | disposition home or self-care (01) ==
PROVIDERS: PCP Internal Medicine; Visit Provider Internal Medicine Gastroenterology
PROC: 0DJ08ZZ Inspection of Upper Intestinal Tract, Via Natural or Artificial Opening Endoscopic (ICD-10-PCS; CPT 43235; principal; 2023-12-24 14:10)
DX: R13.10 Dysphagia, unspecified (principal); K29.70 Gastritis, unspecified, without bleeding; K20.80 Other esophagitis without bleeding; K21.9 Gastro-esophageal reflux disease without esophagitis; K31.7 Polyp of stomach and duodenum; K44.9 Diaphragmatic hernia without obstruction or gangrene; G80.9 Cerebral palsy, unspecified; E78.00 Pure hypercholesterolemia, unspecified; F32.A Depression, unspecified; Z79.899 Other long term (current) drug therapy; Z99.89 Dependence on other enabling machines and devices; Z98.890 Other specified postprocedural states
CPT/HCPCS: 43249; 43239; 88305; 88313; 88342; C1726; J2704

== ENCOUNTER → 2023-12-24 09:14 | Outpatient (BNV) | payer MEDICARE, MEDICAID, SELFPAY | PROVIDERS: PCP Internal Medicine; Visit Provider Internal Medicine Gastroenterology | DX: R13.10 Dysphagia, unspecified (principal); K31.7 Polyp of stomach and duodenum; K29.70 Gastritis, unspecified, without bleeding; K20.90 Esophagitis, unspecified without bleeding | CPT/HCPCS: 43239; 43249 ==

== ENCOUNTER 2024-01-21 12:17 | Outpatient (AMB) | payer MEDICARE, MEDICAID, SELFPAY ==
[2024-01-21 12:23] VITALS: BMI 24.3
--- NOTE | 2024-01-21 12:23 | MHC.OFFVIS ---
Vital Signs 01/21/24 12:23 Height 5 ft 3 in Weight 137 lb 2.04 oz BMI 24.3 Intake Visit Reasons: s/p EGD Intake Note: Patient in office visit today in follow up of EGD and gastric emptying. CC: Patient c/o mid upper abdominal pain, and constipation. Clinical Research Analyst Required: No Accompanied by: Self / Same As Patient Allergies No Known Allergies Allergy (Verified 01/21/24 12:29) HPI HPI s/p EGD: Details: Assessment & Plan (1) Chronic idiopathic constipation: Code(s): K59.04 - Chronic idiopathic constipation (2) RUQ abdominal pain: Code(s): R10.11 - Right upper quadrant pain (3) GERD (gastroesophageal reflux disease): Code(s): K21.9 - Gastro-esophageal reflux disease without esophagitis (4) Family history of colon cancer in father: Comment: at age 76 Code(s): Z80.0 - Family history of malignant neoplasm of digestive organs (5) Esophageal dysmotility: Code(s): K22.4 - Dyskinesia of esophagus (6) Aspiration of gastric contents into larynx: Comment: Mild and not entering the lower airway, on full barium swallow. Code(s): T17.318A - Gastric contents in larynx causing other injury, initial encounter Plan We review her results and it does not appear that the GB is c/t her bloating etc, at least not from a gallstone pathology. I do educate her about her renal fullness which is listed as hydronephrosis from her primary care file. Apparently she was unaware of this I tell her this is a mild condition and most likely her primary simply monitoring it since her renal function appears to be normal. She has had some relief from this with the LInzess, but at the 145mcg level she had to take it qod r/t diarrhea. We will reduce the dose to 72mcg. IF this is too strong we will change to Amitiza. Her RUQ abdominal pain, however, has resolved...so this was likely r/t CIC. She continues to have a poor appetite as she finds that she can only eat small amounts combined with the nausea leads me to think about gastric emptying as a possible cause. I think will order a gastric emptying study since taking quite a while to get the studies done just in case the upper endoscopy comes up empty in terms of pathology to explain her symptoms. I explained this to her and she is agreeable. I let her know that there were some findings on her barium swallow study that seem to indicate some pre aspiration with laryngeal penetration that did not reach the vocal cord level and this is usually perpetuated by a neurological problem with swallowing and coordinating of the opening and closing of the glottis. This likely is related to her cerebral palsy, however depending on what we find on the EGD we can modify this view. It is also possible that there is some globus sensation happening because of under-treated GERD. The barium swallow also showed a fairly large amount of GERD so I think we should put her on some Pepcid at night and treat this despite the fact that she took pantoprazole in the past without any resolution of her symptoms. Again we can modify this treatment depending on the findings of the EGD. Going forward we can consider if a modified barium swallow involving speech pathology is appropriate. Return office visit in 3-4 weeks to titrate her medications. Orders: Orders NM gastric emptying study Today R68.81 - Early satiety Medications: New linaclotide (Linzess) 72 mcg PO QAM 30 caps 6RF K59.04 - Chronic idiopathic constipation famotidine (Pepcid) 40 mg PO BEDTIME 30 tabs 6RF K21.9 - Gastro-esophageal reflux disease without esophagitis Discontinued linaclotide (Linzess) Discontinued Reason: Doctor's Order 145 mcg PO QAM 30 caps 6RF K59.04 - Chronic idiopathic constipation, Z80.0 - Family history of malignant neoplasm of digestive organs s ULTRASOUND OF THE ABDOMEN 10/12/23 FINDINGS: PANCREAS: Pancreas is unremarkable. The pancreatic tail are obscured by bowel gas. ABDOMINAL AORTA: The proximal, mid, and distal segments are normal in caliber. INFERIOR VENA CAVA: Visualized portions are normal. LIVER: Normal. The liver is normal in size. The liver contour is normal. Parenchymal echogenicity is normal. No focal hepatic lesion. There is no intrahepatic biliary duct dilatation seen. GALLBLADDER: Normal. The gallbladder is physiologically distended without evidence of stones, sludge, polyps, wall thickening or pericholecystic fluid. COMMON BILE DUCT: Normal in caliber measuring 0.2 cm in diameter. RIGHT KIDNEY: There is mild pelvic fullness of right kidney No hydronephrosis. No renal calculi or focal parenchymal lesions. The kidney measures 10.4 cm in maximum dimension. LEFT KIDNEY: There is mild pelvic fullness. No hydronephrosis. No renal calculi or focal parenchymal lesions. The kidney measures 9.2 cm in maximum dimension. SPLEEN: Normal. The spleen measures 10.3 cm in maximum dimension. FREE FLUID: None. US/US abdomen complete IMPRESSION: Mild bilateral pelvic fullness. Seen No other abnormal findings EGD Findings: Larynx:normal Esophagus: GE junction at 33 cm, diaphragm hiatus at 35 cm, bogginess and erythema at GEJ, bx taken from here and from distal and proximal esophagus, balloon dilation done to 20 mm at UES and lower esophagus, no tears seen Stomach: patchy erythema . Biopsies were obtained. Grade 2 flap valve on retroflexed examination of the cardia. Scattered fundic gland polyps noted, benign appearing Duodenum: Normal bulb and descending duodenum, Intervention: Biopsies as noted above, balloon dilation Impression/Findings: gastritis esophagitis hiatal hernia esophagitis fundic gland polyps PLAN: optimize medical management of GERd, can use PPI GERD precautions BIOPSY Received: 12/24/23 Diagnosis A. Stomach, biopsy: Antral-type and oxyntic mucosa within normal limits; no Helicobacter organisms seen. B. GE junction, biopsy: - Cardiac-type mucosa with mild chronic inactive inflammation; no intestinal metaplasia seen. - Squamous mucosa within normal limits. C. Esophagus, distal, biopsy: - Squamous epithelium within normal limits; no inflammation seen. - Strips of gastric epithelium within normal limits; no intestinal metaplasia seen. D. Esophagus, proximal, biopsy: Squamous epithelium within normal limits; no inflammation seen GASTRIC EMPTYING STUDY 12/22/23 IMPRESSION: Normal 4-hour solid food gastric emptying study. Gastric emptying study grading per JNMT Consensus Recommendations in 2008: https://tech.snmjournals.org/content/36/1/44 Grade 1 (mild retention): 11-20% at 4 hours Grade 2 (moderate retention): 21-35% at 4 hours Grade 3 (severe retention): 36-50% at 4 hours Grade 4 (very severe retention): >50% retention at 4 hours TODAY'S VISIT Her swallowing has improved with the dilation. She found the 72mcg Linzess is not moving her bowels and she has had a great deal more bloating especially in the upper abdomen. Will go back to the 145 micro g dose which is her preference although we did discuss adding laxative to the lower dose as well. She has had aching in her low thoracic area with this as well. I think will try adding simethicone and if it has not covered by insurance she can buy it [id number] as Gas-X to also address the bloating. She does not appear to have gastroparesis as the gastric emptying study was normal in the upper endoscopy was actually fairly unremarkable. It seems likely that she has functional bowel disorders which just means we need to do get in treat the symptoms. If we can get her bloating down with the gas pills then will consider a trial of Creon. Fortunately her nausea has been on off and not very frequent of late. Return office visit in 4 weeks to see how she is doing [facility] Medical History Cerebral palsy Elevated cholesterol Depression GERD (gastroesophageal reflux disease) Hiatal hernia Ambulates with cane Dysphagia Acute epigastric pain Surgical History (Updated 01/21/24 @ 12:33 by Govind Love [facility]) History of esophagogastroduodenoscopy (EGD) History of surgery H/O colonoscopy History of section History of tubal ligation H/O thumb surgery Hx of discectomy Hx of appendectomy Family History Father Colon cancer Social History Alcohol intake: current Alcohol intake frequency: a few times a month Alcohol type: beer Patient Tobacco Use Status: Never used Tobacco Review of Systems Const Denies fatigue, Denies fever(s), Denies night sweats, Denies poor appetite and Denies weight loss Eyes Details: Glasses Reports requires corrective lenses ENT Reports Normal hearing present, Denies dysphagia, Denies odynophagia, Denies throat swelling and Denies tongue swelling Card Reports no additional complaints Resp Reports no additional complaints GI Details: Denies abdominal pain, Denies melena, Reports bloating, Denies hematochezia, Reports constipation, Denies GI cramping, Denies dysphagia, Denies excessive flatus, Denies early satiety, Reports heartburn, Reports diarrhea, Denies nausea, Denies odynophagia, Denies vomiting and Denies hematemesis Musc Reports abnormal gait and Reports back pain Skin/Breast Denies pruritus, Denies lesions, Denies rash and Denies jaundice Neuro Reports Normal hearing present, Denies Abnormal speech present, Reports abnormal gait and Reports lack of coordination Endo Denies fatigue Aller/Immun Denies throat swelling and Denies tongue swelling Physical Exam Vital Signs: BMI result Body Mass Index 24.3 Const General: cooperative, no acute distress, well developed and well groomed Nutritional Appearance: average body habitus and well nourished Orientation/consciousness: oriented to person, oriented to place and oriented to time Limitations: No language barrier and ambulation with cane HEENT Other: Patient has a stutter Head: Yes normocephalic and Yes atraumatic Eyes General: appearance normal, both eyes and all related structures Pupils: Equal, round and reactive pupils present Neck Neck: Yes normal visual inspection and Yes no lymphadenopathy Thyroid: Thyroid normal Resp Effort & Inspection: normal respiratory effort and able to speak in complete sentences Auscultation: clear to auscultation bilaterally Cardio Rate: regular rate Rhythm: regular rhythm Heart sounds: Normal, physiologic split S2 sound present Peripheral pulses: radial pulses present and posterior tibial pulses present GI Inspection: No distended and No Abdominal panniculus present Palpation (GI): Soft to palpation, nontender, no guarding, not rigid and No hepatosplenomegaly present Percussion: Yes normal to percussion Auscultation: normal bowel sounds Rectal Exam - Female: deferred Skin General skin exam: no rashes or lesions noted, turgor normal, skin not dry, no jaundice, No spider nevi and no striae Rashes: no rashes Nails: normal Neuro General: oriented to person, oriented to place and oriented to time Cranial nerves: Yes Equal, round and reactive pupils present and Yes Normal hearing present Speech: No Abnormal speech present Extrem General: Yes normal to inspection, No clubbing, No cyanosis and No edema Psych Appearance: grossly normal and well kempt Mental Status: mental status grossly normal Speech and movement: Normal speech and movement present Affect: normal affect Attitude: cooperative Thought process: Normal thought process present and not confabulating Thought content: Normal thought content present Insight: Fair insight present (Psych) Judgement: Fair judgement present (Psych) Assessment & Plan Assessment & Plan (1) Esophageal dysmotility: Code(s): K22.4 - Dyskinesia of esophagus Category: Medical (2) GERD (gastroesophageal reflux disease): Code(s): K21.9 - Gastro-esophageal reflux disease without esophagitis Category: Medical (3) Chronic idiopathic constipation: Code(s): K59.04 - Chronic idiopathic constipation Category: Medical (4) Aspiration of gastric contents into larynx: Comment: Mild and not entering the lower airway, on full barium swallow. Code(s): T17.318A - Gastric contents in larynx causing other injury, initial encounter Category: Medical Plan Her swallowing has improved with the dilation. She found the 72mcg Linzess is not moving her bowels and she has had a great deal more bloating especially in the upper abdomen. Will go back to the 145 micro g dose which is her preference although we did discuss adding laxative to the lower dose as well. She has had aching in her low thoracic area with this as well. I think will try adding simethicone and if it has not covered by insurance she can buy it [id number] as Gas-X to also address the bloating. She does not appear to have gastroparesis as the gastric emptying study was normal in the upper endoscopy was actually fairly unremarkable. It seems likely that she has functional bowel disorders which just means we need to do get in treat the symptoms. If we can get her bloating down with the gas pills then will consider a trial of Creon. Fortunately her nausea has been on off and not very frequent of late. Return office visit in 4 weeks to see how she is doing Medications: New simethicone after meals 180 mg PO QID 120 caps 3RF 30 days linaclotide (Linzess) 145 mcg PO QAM 30 caps 6RF Discontinued linaclotide (Linzess) Discontinued Reason: Doctor's Order 72 mcg PO QAM 30 caps 6RF K59.04 - Chronic idiopathic constipation Coding Level of Care Code Est Pt Level 3 (63390) Diagnoses Esophageal dysmotility K22.4 GERD (gastroesophageal reflux disease) K21.9 Chronic idiopathic constipation K59.04 Aspiration of gastric contents into larynx T17.318A
== END 2024-01-21 12:48 | disposition home or self-care (01) ==
PROVIDERS: PCP Internal Medicine; Visit Provider Nurse Practitioner
DX: K22.4 Dyskinesia of esophagus (principal); K21.9 Gastro-esophageal reflux disease without esophagitis; K59.04 Chronic idiopathic constipation; T17 Foreign body in respiratory tract
CPT/HCPCS: 99213

== ENCOUNTER → 2024-01-21 12:17 | Outpatient (BNVA) | payer MEDICARE, MEDICAID, SELFPAY | PROVIDERS: PCP Internal Medicine; Visit Provider Nurse Practitioner | DX: K22.4 Dyskinesia of esophagus (principal); K21.9 Gastro-esophageal reflux disease without esophagitis; K59.04 Chronic idiopathic constipation; T17 Foreign body in respiratory tract; Z79.899 Other long term (current) drug therapy | CPT/HCPCS: 99212 ==

== ENCOUNTER 2024-02-18 13:25 | Outpatient (AMB) | payer MEDICARE, MEDICAID, SELFPAY ==
[2024-02-18 13:27] VITALS: BP 138/66; PULSE 79; BMI 24.1
--- NOTE | 2024-02-18 13:27 | A.OFFVIS_ITS ---
Vital Signs 02/18/24 13:27 Height 5 ft 3 in Weight 136 lb 3.931 oz BMI 24.1 BP 138/66 Blood Pressure Location Lt radial Position Sitting Pulse 79 Intake Visit Reasons: 4 week follow up Intake Note: Natalie presents to in office visit today in follow up of CIC. CC: Patient reports doing a lot better and able to have BMs with Linzess. Denies any new GI concerns or symptoms today. 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 Code(s): T17.318A - Gastric contents in larynx causing other injury, initial encounter Category: Medical Plan Her swallowing has improved with the dilation. She found the 72mcg Linzess is not moving her bowels and she has had a great deal more bloating especially in the upper abdomen. Will go back to the 145 micro g dose which is her preference although we did discuss adding laxative to the lower dose as well. She has had aching in her low thoracic area with this as well. I think will try adding simethicone and if it has not covered by insurance she can buy it [id number] as Gas-X to also address the bloating. She does not appear to have gastroparesis as the gastric emptying study was normal in the upper endoscopy was actually fairly unremarkable. It seems likely that she has functional bowel disorders which just means we need to do get in treat the symptoms. If we can get her bloating down with the gas pills then will consider a trial of Creon. Fortunately her nausea has been on off and not very frequent of late. Return office visit in 4 weeks to see how she is doing Medications: New simethicone after meals 180 mg PO QID 120 caps 3RF 30 days linaclotide (Linzess) 145 mcg PO QAM 30 caps 6RF Discontinued linaclotide (Linzess) Discontinued Reason: Doctor's Order 72 mcg PO QAM 30 caps 6RF K59.04 - Chronic idiopathic constipation ULTRASOUND OF THE ABDOMEN 10/12/23 FINDINGS: PANCREAS: Pancreas is unremarkable. The pancreatic tail are obscured by bowel gas. ABDOMINAL AORTA: The proximal, mid, and distal segments are normal in caliber. INFERIOR VENA CAVA: Visualized portions are normal. LIVER: Normal. The liver is normal in size. The liver contour is normal. Parenchymal echogenicity is normal. No focal hepatic lesion. There is no intrahepatic biliary duct dilatation seen. GALLBLADDER: Normal. The gallbladder is physiologically distended without evidence of stones, sludge, polyps, wall thickening or pericholecystic fluid. COMMON BILE DUCT: Normal in caliber measuring 0.2 cm in diameter. RIGHT KIDNEY: There is mild pelvic fullness of right kidney No hydronephrosis. No renal calculi or focal parenchymal lesions. The kidney measures 10.4 cm in maximum dimension. LEFT KIDNEY: There is mild pelvic fullness. No hydronephrosis. No renal calculi or focal parenchymal lesions. The kidney measures 9.2 cm in maximum dimension. SPLEEN: Normal. The spleen measures 10.3 cm in maximum dimension. FREE FLUID: None. US/US abdomen complete IMPRESSION: Mild bilateral pelvic fullness. Seen No other abnormal findings EGD 12/24/23 Findings: Larynx:normal Esophagus: GE junction at 33 cm, diaphragm hiatus at 35 cm, bogginess and erythema at GEJ, bx taken from here and from distal and proximal esophagus, balloon dilation done to 20 mm at UES and lower esophagus, no tears seen Stomach: patchy erythema . Biopsies were obtained. Grade 2 flap valve on retroflexed examination of the cardia. Scattered fundic gland polyps noted, benign appearing Duodenum: Normal bulb and descending duodenum, Intervention: Biopsies as noted above, balloon dilation Impression/Findings: gastritis esophagitis hiatal hernia esophagitis fundic gland polyps PLAN: optimize medical management of GERd, can use PPI GERD precautions BIOPSY Received: 12/24/23 Diagnosis A. Stomach, biopsy: Antral-type and oxyntic mucosa within normal limits; no Helicobacter organisms seen. B. GE junction, biopsy: - Cardiac-type mucosa with mild chronic inactive inflammation; no intestinal metaplasia seen. - Squamous mucosa within normal limits. C. Esophagus, distal, biopsy: - Squamous epithelium within normal limits; no inflammation seen. - Strips of gastric epithelium within normal limits; no intestinal metaplasia seen. D. Esophagus, proximal, biopsy: Squamous epithelium within normal limits; no inflammation seen GASTRIC EMPTYING STUDY 12/22/23 IMPRESSION: Normal 4-hour solid food gastric emptying study. Gastric emptying study grading per JNMT Consensus Recommendations in 2008: https://tech.snmjournals.org/content/3644 Grade 1 (mild retention): 11-20% at 4 hours Grade 2 (moderate retention): 21-35% at 4 hours Grade 3 (severe retention): 36-50% at 4 hours Grade 4 (very severe retention): >50% retention at 4 hours TODAY'S VISIT She is using the Linzess every day and the simethicone and she is 70% better. Swallowing somewhat improved with dilation, she was educated about possible re dilation. She was not able to be aware of her aspiration so we may need to repeat the barium swallow consider speech therapy going forward depending on how she does. For now she is satisfied with her GI regimen and will wait and watch to see if it improves once her body develops a rhythm. She is having frequent pain in the right flank/back area. This does not seem to be related to eating or moving her bowels and is not worse with a deep breath and she denies any chest pain or shortness of breath. It is worse with standing and sometimes with position change such as going from standing to sitting. I think will get an x-ray of the thoracic spine any urinalysis to try to guide her about this symptom. Return office visit in 3 months and I will call her if there is any severe abnormality that requires referral on her x-ray or her urine test. [facility] Medical History Cerebral palsy Elevated cholesterol Depression GERD (gastroesophageal reflux disease) Hiatal hernia Ambulates with cane Dysphagia Acute epigastric pain Surgical History History of esophagogastroduodenoscopy (EGD) History of surgery H/O colonoscopy History of section History of tubal ligation H/O thumb surgery Hx of discectomy Hx of appendectomy Family History Father Colon cancer Social History Alcohol intake: current Alcohol intake frequency: a few times a month Alcohol type: beer Patient Tobacco Use Status: Never used Tobacco Review of Systems Const Denies fatigue, Denies fever(s), Denies night sweats, Denies poor appetite and Denies weight loss Eyes Details: glasses Reports requires corrective lenses ENT Reports Normal hearing present, Denies dental pain, Denies dysphagia, Denies hearing loss, Denies mouth pain, Denies odynophagia, Denies throat swelling, Denies tongue swelling and Reports other (Dentition adequate) Card Reports no additional complaints Resp Reports no additional complaints GI Details: Denies abdominal pain, Denies melena, Reports bloating, Denies hematochezia, Reports constipation, Denies GI cramping, Denies dysphagia, Denies excessive flatus, Denies early satiety, Denies heartburn, Denies diarrhea, Denies nausea, Denies odynophagia, Denies vomiting and Denies hematemesis Musc Reports back pain and Reports arthralgias Skin/Breast Denies pruritus, Denies lesions, Denies rash and Denies jaundice Neuro Reports Normal hearing present and Denies Abnormal speech present Endo Denies fatigue Aller/Immun Denies throat swelling and Denies tongue swelling Physical Exam Vital Signs: Last Vital Signs Pulse 79 02/18/24 13:27 BP 138/66 02/18/24 13:27 BMI result Body Mass Index 24.1 Const General: cooperative, no acute distress, well developed and well groomed Nutritional Appearance: average body habitus and well nourished Orientation/consciousness: oriented to person, oriented to place and oriented to time Limitations: No language barrier HEENT Head: Yes normocephalic and Yes atraumatic Eyes General: appearance normal, both eyes and all related structures Pupils: Equal, round and reactive pupils present Neck Neck: Yes normal visual inspection and Yes no lymphadenopathy Thyroid: Thyroid normal Resp Effort & Inspection: normal respiratory effort and able to speak in complete sentences Auscultation: clear to auscultation bilaterally Cardio Rate: regular rate Rhythm: regular rhythm Heart sounds: Normal, physiologic split S2 sound present Peripheral pulses: radial pulses present and posterior tibial pulses present GI Inspection: No distended and No Abdominal panniculus present Palpation (GI): Soft to palpation, nontender, no guarding, not rigid and No hepatosplenomegaly present Percussion: Yes normal to percussion Auscultation: normal bowel sounds Rectal Exam - Female: deferred Skin General skin exam: no rashes or lesions noted, turgor normal, skin not dry, no jaundice, No spider nevi and no striae Rashes: no rashes Nails: normal Neuro General: oriented to person, oriented to place and oriented to time Cranial nerves: Yes Equal, round and reactive pupils present and Yes Normal hearing present Speech: No Abnormal speech present Extrem General: Yes normal to inspection, No clubbing, No cyanosis and No edema Psych Appearance: grossly normal and well kempt Mental Status: mental status grossly normal Speech and movement: Normal speech and movement present Affect: normal affect Attitude: cooperative Thought process: Normal thought process present and not confabulating Thought content: Normal thought content present Insight: Fair insight present (Psych) Results Reviewed Results Reviewed: ULTRASOUND OF THE ABDOMEN 10/12/23 FINDINGS: PANCREAS: Pancreas is unremarkable. The pancreatic tail are obscured by bowel gas. ABDOMINAL AORTA: The proximal, mid, and distal segments are normal in caliber. INFERIOR VENA CAVA: Visualized portions are normal. LIVER: Normal. The liver is normal in size. The liver contour is normal. Parenchymal echogenicity is normal. No focal hepatic lesion. There is no intrahepatic biliary duct dilatation seen. GALLBLADDER: Normal. The gallbladder is physiologically distended without evidence of stones, sludge, polyps, wall thickening or pericholecystic fluid. COMMON BILE DUCT: Normal in caliber measuring 0.2 cm in diameter. RIGHT KIDNEY: There is mild pelvic fullness of right kidney No hydronephrosis. No renal calculi or focal parenchymal lesions. The kidney measures 10.4 cm in maximum dimension. LEFT KIDNEY: There is mild pelvic fullness. No hydronephrosis. No renal calculi or focal parenchymal lesions. The kidney measures 9.2 cm in maximum dimension. SPLEEN: Normal. The spleen measures 10.3 cm in maximum dimension. FREE FLUID: None. US/US abdomen complete IMPRESSION: Mild bilateral pelvic fullness. Seen No other abnormal findings EGD 12/24/23 Findings: Larynx:normal Esophagus: GE junction at 33 cm, diaphragm hiatus at 35 cm, bogginess and erythema at GEJ, bx taken from here and from distal and proximal esophagus, balloon dilation done to 20 mm at UES and lower esophagus, no tears seen Stomach: patchy erythema . Biopsies were obtained. Grade 2 flap valve on retroflexed examination of the cardia. Scattered fundic gland polyps noted, benign appearing Duodenum: Normal bulb and descending duodenum, Intervention: Biopsies as noted above, balloon dilation Impression/Findings: gastritis esophagitis hiatal hernia esophagitis fundic gland polyps PLAN: optimize medical management of GERd, can use PPI GERD precautions BIOPSY Received: 12/24/23 Diagnosis A. Stomach, biopsy: Antral-type and oxyntic mucosa within normal limits; no H elicobacter organisms seen. B. GE junction, biopsy: - Cardiac-type mucosa with mild chronic inactive inflammation; no intestinal metaplasia seen. - Squamous mucosa within normal limits. C. Esophagus, distal, biopsy: - Squamous epithelium within normal limits; no inflammation seen. - Strips of gastric epithelium within normal limits; no intestinal metaplasia seen. D. Esophagus, proximal, biopsy: Squamous epithelium within normal limits; no inflammation seen GASTRIC EMPTYING STUDY 12/22/23 IMPRESSION: Normal 4-hour solid food gastric emptying study. Gastric emptying study grading per JNMT Consensus Recommendations in 2008: https://tech.snmjournals.org/content/36/44 Grade 1 (mild retention): 11-20% at 4 hours Grade 2 (moderate retention): 21-35% at 4 hours Grade 3 (severe retention): 36-50% at 4 hours Grade 4 (very severe retention): >50% retention at 4 hours Assessment & Plan Assessment & Plan (1) GERD (gastroesophageal reflux disease): Code(s): K21.9 - Gastro-esophageal reflux disease without esophagitis Category: Medical (2) Chronic idiopathic constipation: Code(s): K59.04 - Chronic idiopathic constipation Category: Medical (3) Aspiration of gastric contents into larynx: Comment: Mild and not entering the lower airway, on full barium swallow. Code(s): T17.318A - Gastric contents in larynx causing other injury, initial encounter Category: Medical (4) Right-sided back pain: Code(s): M54.9 - Dorsalgia, unspecified Category: Medical Plan She is using the Linzess every day and the simethicone and she is 70% better. Swallowing somewhat improved with dilation, she was educated about possible re dilation. She was not able to be aware of her aspiration so we may need to re peat the barium swallow consider speech therapy going forward depending on how she does. For now she is satisfied with her GI regimen and will wait and watch to see if it improves once her body develops a rhythm. She is having frequent pain in the right flank/back area. This does not seem to be related to eating or moving her bowels and is not worse with a deep breath and she denies any chest pain or shortness of breath. It is worse with standing and sometimes with position change such as going from standing to sitting. I think will get an x-ray of the thoracic spine any urinalysis to try to guide her about this symptom. Return office visit in 3 months and I will call her if there is any severe abnormality that requires referral on her x-ray or her urine test. Orders: Orders UA CC w/rflx Micro + Cult 02/18/24 M54.9 - Dorsalgia, unspecified XR thoracic spine 2V 02/18/24 M54.9 - Dorsalgia, unspecified Coding Level of Care Code Est Pt Level 3 (54428) Diagnoses GERD (gastroesophageal reflux disease) K21.9 Chronic idiopathic constipation K59.04 Aspiration of gastric contents into larynx T17.318A Right-sided back pain M54.9
== END 2024-02-18 13:54 | disposition home or self-care (01) ==
PROVIDERS: PCP Internal Medicine; Visit Provider Nurse Practitioner
DX: K21.9 Gastro-esophageal reflux disease without esophagitis (principal); K59.04 Chronic idiopathic constipation; T17 Foreign body in respiratory tract; M54.9 Dorsalgia, unspecified
CPT/HCPCS: 99213

== ENCOUNTER 2024-02-18 13:25 | Outpatient (REF) | payer MEDICARE, MEDICAID, SELFPAY ==
--- NOTE | ~2024-02-18 | XR_ITS ---
EXAMINATION: XR THORACOLUMBAR SPINE CLINICAL INFORMATION: Back pain. COMPARISON: None available. TECHNIQUE: 3 views of the thoracic spine. FINDINGS: Mild levoscoliosis of the thoracic spine. Mild multilevel thoracic spondylosis. The thoracic vertebral body heights are maintained. Surgical hardware in the partially imaged cervical spine could be evaluated with dedicated cervical spine images. XR/XR thoracic spine 2V IMPRESSION: Mild multilevel thoracic spondylosis.
[2024-02-18 14:49] LABS: Appearance Urine Clear; Color Urine Yellow; Glucose Urine UA Negative (Negative); Leukocyte Esterase Urine Negative (Negative); Nitrite Urine Negative (Negative); PH 6.5 (5.0-9.0); Specific Gravity - Urine 1.015 (1.005-1.025); Urine Blood Negative (Negative); Urine Ketones Negative (Negative); Urine Protein Negative (Neg-Trace)
== END 2024-02-18 13:26 | disposition home or self-care (01) ==
LOC: HO.XRAY 13:25
PROVIDERS: PCP Internal Medicine; Visit Provider Nurse Practitioner
DX: K59.04 Chronic idiopathic constipation (principal); K22.4 Dyskinesia of esophagus; K21.9 Gastro-esophageal reflux disease without esophagitis; M54.9 Dorsalgia, unspecified; T17 Foreign body in respiratory tract
CPT/HCPCS: 72070; 81003; 99212

== ENCOUNTER 2024-05-10 13:55 | Outpatient (AMB) | payer MEDICARE, SELFPAY ==
--- NOTE | 2024-05-10 13:58 | A.OFFVIS_ITS ---
Vital Signs 05/10/24 14:03 Height 5 ft 3 in Weight 132 lb 11.492 oz BMI 23.5 BP 127/74 Blood Pressure Location Lt brachial Position Sitting Pulse 84 Intake Visit Reasons: 3 month follow up Intake Note: Natalie presents to in office follow up of labs and XRay results. CC: Patient reports abdominal bloating all the time and feeling her abdomen hard in the evenings. She also reports poor appetite, nausea, and constipation sometimes. She also c/o pain from mid back. Inner Tube Inserter Required: No Accompanied by: Self / Same As Patient Allergies No Known Allergies Allergy (Verified 05/10/24 14:12) HPI HPI 3 month follow up: Details: Assessment & Plan (1) GERD (gastroesophageal reflux disease): Code(s): K21.9 - Gastro-esophageal reflux disease without esophagitis Category: Medical (2) Chronic idiopathic constipation: Code(s): K59.04 - Chronic idiopathic constipation Category: Medical (3) Aspiration of gastric contents into larynx: Comment: Mild and not entering the lower airway, on full barium swallow. Code(s): T17.318A - Gastric contents in larynx causing other injury, initial encounter Category: Medical (4) Right-sided back pain: Code(s): M54.9 - Dorsalgia, unspecified Category: Medical Plan She is using the Linzess every day and the simethicone and she is 70% better. Swallowing somewhat improved with dilation, she was educated about possible re dilation. She was not able to be aware of her aspiration so we may need to repeat the barium swallow consider speech therapy going forward depending on how she does. For now she is satisfied with her GI regimen and will wait and watch to see if it improves once her body develops a rhythm. She is having frequent pain in the right flank/back area. This does not seem to be related to eating or moving her bowels and is not worse with a deep breath and she denies any chest pain or shortness of breath. It is worse with standing and sometimes with position change such as going from standing to sitting. I think will get an x-ray of the thoracic spine any urinalysis to try to guide her about this symptom. Return office visit in 3 months and I will call her if there is any severe abnormality that requires referral on her x-ray or her urine test. Orders: Orders UA CC w/rflx Micro + Cult 02/18/24 M54.9 - Dorsalgia, unspecified XR thoracic spine 2V 02/18/24 M54.9 - Dorsalgia, unspecified LABS: 02/18/24-[address]: Misael Santamaria MD ORDERED: Ua Clean Catch QUERIES: Source: Urine, Clean Catch Test Result Flag Reference Ur Color Yellow Ur Appear Clear PH 6.5 5.0-9.0 Ur Glu Negative Negative mg/dL Urine Blood Negative Negative Spec [place] Ur 1.015 1.005-1.025 Urine Protein Negative Neg-Trace mg/dL Urine Ketones Negative Negative mg/dL Ur Nitrite Negative Negative Ur [place] Esterase Negative Negative X-RAY OF THE THORACIC SPINE 03/07/24 FINDINGS: Mild levoscoliosis of the thoracic spine. Mild multilevel thoracic spondylosis. The thoracic vertebral body heights are maintained. Surgical hardware in the partially imaged cervical spine could be evaluated with dedicated cervical spine images. XR/XR thoracic spine 2V IMPRESSION: Mild multilevel thoracic spondylosis. 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 She is already on baclofen twice a day and because of her cerebral palsy I defer to her Neurology provider to see if they want to either increase this muscle relaxer or switch to a different 1. She will consult with them and I print out copy of the x-ray for their information. She says that she is only moving her bowels 2 or 3 times a week and she is feeling extremely bloated. This despite taking her Linzess every day. She is really not sure what may have changed but we will increase her to 290 micro g dose and titrate to affect her side effect. Her famotidine and her simethicone and has Colace available. Return office visit in 6 weeks to evaluate her response. [facility] Medical History Cerebral palsy Elevated cholesterol Depression GERD (gastroesophageal reflux disease) Hiatal hernia Ambulates with cane Dysphagia Acute epigastric pain Surgical History History of esophagogastroduodenoscopy (EGD) History of surgery H/O colonoscopy History of section History of tubal ligation H/O thumb surgery Hx of discectomy Hx of appendectomy Family History Father Colon cancer Social History Alcohol intake: current Alcohol intake frequency: a few times a month Alcohol type: beer Patient Tobacco Use Status: Never used Tobacco Review of Systems Const Denies fatigue, Denies fever(s), Denies night sweats, Denies poor appetite and Denies weight loss Eyes Details: glasses Reports requires corrective lenses ENT Reports Normal hearing present, Denies dental pain, Denies dysphagia, Denies hearing loss, Denies mouth pain, Denies odynophagia, Denies throat swelling, Denies tongue swelling and Reports other (Dentition adequate) Card Reports no additional complaints Resp Reports no additional complaints GI Details: Denies abdominal pain, Denies melena, Reports bloating, Denies hematochezia, Reports constipation, Denies GI cramping, Denies dysphagia, Denies excessive flatus, Denies early satiety, Reports heartburn, Denies diarrhea, Denies nausea, Denies odynophagia, Denies vomiting and Denies hematemesis Reports flank pain Musc Reports abnormal gait, Reports back pain and Reports muscle cramps Skin/Breast Denies pruritus, Denies lesions, Denies rash and Denies jaundice Neuro Reports Normal hearing present, Denies Abnormal speech present, Reports abnormal gait and Reports tremor(s) Endo Denies fatigue Aller/Immun Denies throat swelling and Denies tongue swelling Physical Exam Vital Signs: Last Vital Signs Pulse 84 05/10/24 14:03 BP 127/74 05/10/24 14:03 BMI result Body Mass Index 23.5 Const General: cooperative, no acute distress, well developed and well groomed Nutritional Appearance: average body habitus and well nourished Orientation/consciousness: oriented to person, oriented to place and oriented to time Limitations: No language barrier and other limitations (Stutter and lisp) HEENT Head: Yes normocephalic and Yes atraumatic Eyes General: appearance normal, both eyes and all related structures Pupils: Equal, round and reactive pupils present Neck Neck: Yes normal visual inspection and Yes no lymphadenopathy Thyroid: Thyroid normal Resp Effort & Inspection: normal respiratory effort and able to speak in complete sentences Auscultation: clear to auscultation bilaterally Cardio Rate: regular rate Rhythm: regular rhythm Heart sounds: Normal, physiologic split S2 sound present Peripheral pulses: radial pulses present and posterior tibial pulses present GI Inspection: Yes distended and No Abdominal panniculus present Palpation (GI): Soft to palpation, nontender, no guarding, not rigid and No hepatosplenomegaly present Percussion: Yes normal to percussion Auscultation: normal bowel sounds Rectal Exam - Female: deferred Skin General skin exam: no rashes or lesions noted, turgor normal, skin not dry, no jaundice, No spider nevi and no striae Rashes: no rashes Nails: normal Neuro General: oriented to person, oriented to place and oriented to time Cranial nerves: Yes Equal, round and reactive pupils present and Yes Normal hearing present Speech: No Abnormal speech present Extrem General: Yes normal to inspection, No clubbing, No cyanosis and No edema Psych Appearance: grossly normal and well kempt Mental Status: mental status grossly normal Speech and movement: Normal speech and movement present Affect: normal affect Attitude: cooperative Thought process: Normal thought process present and not confabulating Thought content: Normal thought content present Insight: Limited insight present (Psych) Judgement: Limited judgement present (Psych) Results Reviewed Results Reviewed: 02/18/24-[address]: Misael Santamaria MD ORDERED: Ua Clean Catch QUERIES: Source: Urine, Clean Catch Test Result Flag Reference Ur Color Yellow Ur Appear Clear PH 6.5 5.0-9.0 Ur Glu Negative Negative mg/dL Urine Blood Negative Negative Spec [place] Ur 1.015 1.005-1.025 Urine Protein Negative Neg-Trace mg/dL Urine Ketones Negative Negative mg/dL Ur Nitrite Negative Negative Ur [place] Esterase Negative Negative X-RAY OF THE THORACIC SPINE 03/07/24 FINDINGS: Mild levoscoliosis of the thoracic spine. Mild multilevel thoracic spondylosis. The thoracic vertebral body heights are maintained. Surgical hardware in the partially imaged cervical spine could be evaluated with dedicated cervical spine images. XR/XR thoracic spine 2V IMPRESSION: Mild multilevel thoracic spondylosis. 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 She is already on baclofen twice a day and because of her cerebral palsy I defer to her Neurology provider to see if they want to either increase this muscle relaxer or switch to a different 1. She will consult with them and I print out copy of the x-ray for their information. She says that she is only moving her bowels 2 or 3 times a week and she is feeling extremely bloated. This despite taking her Linzess every day. She is really not sure what may have changed but we will increase her to 290 micro g dose and titrate to affect her side effect. Her famotidine and her simethicone and has Colace available. Return office visit in 6 weeks to evaluate her response. Medications: New linaclotide (Linzess) 290 mcg PO QAM 30 caps 6RF 30 days K59.04 - Chronic idi opathic constipation linaclotide (Linzess) 290 mcg PO QAM 30 days 30 caps 6RF K59.04 - Chronic idiopathic constipation Refilled famotidine (Pepcid) 40 mg PO BEDTIME 30 tabs 6RF K21.9 - Gastro-esophageal reflux disease without esophagitis simethicone after meals 180 mg PO QID 120 caps 3RF 30 days Discontinued linaclotide (Linzess) Discontinued Reason: Doctor's Order 145 mcg PO QAM 30 caps 6RF Coding Level of Care Code Est Pt Level 3 (80956) Diagnoses Chronic idiopathic constipation K59.04
[2024-05-10 14:03] VITALS: BP 127/74; PULSE 84; BMI 23.5
== END 2024-05-10 14:39 | disposition home or self-care (01) ==
PROVIDERS: PCP Internal Medicine; Visit Provider Nurse Practitioner
DX: K59.04 Chronic idiopathic constipation (principal)
CPT/HCPCS: 99213

== ENCOUNTER → 2024-05-10 13:55 | Outpatient (BNVA) | payer MEDICARE, SELFPAY | PROVIDERS: PCP Internal Medicine; Visit Provider Nurse Practitioner | DX: K59.04 Chronic idiopathic constipation (principal) | CPT/HCPCS: 99212 ==

== ENCOUNTER 2024-06-22 14:24 | Outpatient (AMB) | payer MEDICARE, SELFPAY ==
--- NOTE | 2024-06-22 14:32 | A.OFFVIS_ITS ---
Vital Signs 06/22/24 14:33 Height 5 ft 3 in Weight 134 lb 7.712 oz BMI 23.8 BP 138/83 Blood Pressure Location Rt brachial Position Sitting Pulse 81 Intake Visit Reasons: 6 weeks follow up Intake Note: Natalie presents to in office follow up CIC. CC: Patient states that her abdomen sometimes gets hard but she's always had that. She reports that the Linzess is working very well and denies other GI concerns today. 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 She is already on baclofen twice a day and because of her cerebral palsy I defer to her Neurology provider to see if they want to either increase this muscle relaxer or switch to a different 1. She will consult with them and I print out copy of the x-ray for their information. She says that she is only moving her bowels 2 or 3 times a week and she is feeling extremely bloated. This despite taking her Linzess every day. She is really not sure what may have changed but we will increase her to 290 micro g dose and titrate to affect her side effect. Her famotidine and her simethicone and has Colace available. Return office visit in 6 weeks to evaluate her response. Medications: New linaclotide (Linzess) 290 mcg PO QAM 30 caps 6RF 30 days K59.04 - Chronic idiopathic constipation linaclotide (Linzess) 290 mcg PO QAM 30 days 30 caps 6RF K59.04 - Chronic idiopathic constipation Refilled famotidine (Pepcid) 40 mg PO BEDTIME 30 tabs 6RF K21.9 - Gastro-esophageal reflux disease without esophagitis simethicone after meals 180 mg PO QID 120 caps 3RF 30 days Discontinued linaclotide (Linzess) Discontinued Reason: Doctor's Order 145 mcg PO QAM 30 caps 6RF TODAY'S VISIT She continues on famotidine, simethicone, and Linzess which we just increased to 290mcg. With this is he is moving her bowels well, and she is satisfied with her GI regimen. ROV 4 mos. [facility] Medical History Cerebral palsy Elevated cholesterol Depression GERD (gastroesophageal reflux disease) Hiatal hernia Ambulates with cane Dysphagia Acute epigastric pain Surgical History History of esophagogastroduodenoscopy (EGD) History of surgery H/O colonoscopy History of section History of tubal ligation H/O thumb surgery Hx of discectomy Hx of appendectomy Family History Father Colon cancer Social History Alcohol intake: current Alcohol intake frequency: a few times a month Alcohol type: beer Patient Tobacco Use Status: Never used Tobacco Review of Systems Const Denies fatigue, Denies fever(s), Denies night sweats, Denies poor appetite and Denies weight loss Eyes Details: glasses Reports requires corrective lenses ENT Reports Normal hearing present, Denies dental pain, Denies dysphagia, Denies hearing loss, Denies mouth pain, Denies odynophagia, Denies throat swelling, Denies tongue swelling and Reports other (Dentition adequate) Card Reports no additional complaints Resp Reports no additional complaints GI Details: Denies abdominal pain, Denies melena, Denies bloating, Denies hematochezia, Reports constipation, Denies GI cramping, Denies dysphagia, Denies excessive flatus, Denies early satiety, Reports heartburn, Denies diarrhea, Denies nausea, Denies odynophagia, Denies vomiting and Denies hematemesis Skin/Breast Denies pruritus, Denies lesions, Denies rash and Denies jaundice Neuro Reports Normal hearing present and Denies Abnormal speech present Endo Denies fatigue Aller/Immun Denies throat swelling and Denies tongue swelling Physical Exam Vital Signs: Last Vital Signs Pulse 81 06/22/24 14:33 BP 138/83 06/22/24 14:33 BMI result Body Mass Index 23.8 Const General: cooperative, no acute distress, well developed and well groomed Nutritional Appearance: average body habitus and well nourished Orientation/consciousness: oriented to person, oriented to place and oriented to time Limitations: No language barrier and ambulation with cane HEENT Head: Yes normocephalic and Yes atraumatic Eyes General: appearance normal, both eyes and all related structures Pupils: Equal, round and reactive pupils present Neck Neck: Yes normal visual inspection and Yes no lymphadenopathy Thyroid: Thyroid normal Resp Effort & Inspection: normal respiratory effort and able to speak in complete sentences Auscultation: clear to auscultation bilaterally Cardio Rate: regular rate Rhythm: regular rhythm Heart sounds: Normal, physiologic split S2 sound present Peripheral pulses: radial pulses present and posterior tibial pulses present GI Inspection: No distended and No Abdominal panniculus present Palpation (GI): Soft to palpation, nontender, no guarding, not rigid and No hepatosplenomegaly present Percussion: Yes normal to percussion Auscultation: normal bowel sounds Rectal Exam - Female: deferred Skin General skin exam: no rashes or lesions noted, turgor normal, skin not dry, no jaundice, No spider nevi and no striae Rashes: no rashes Nails: normal Neuro General: oriented to person, oriented to place and oriented to time Cranial nerves: Yes Equal, round and reactive pupils present and Yes Normal hearing present Speech: No Abnormal speech present Extrem General: Yes normal to inspection, No clubbing, No cyanosis and No edema Psych Appearance: grossly normal and well kempt Mental Status: mental status grossly normal Speech and movement: Normal speech and movement present Affect: normal affect Attitude: cooperative Thought process: Normal thought process present and not confabulating Thought content: Normal thought content present Insight: Fair insight present (Psych) Judgement: Fair judgement present (Psych) Assessment & Plan Assessment & Plan (1) GERD (gastroesophageal reflux disease): Code(s): K21.9 - Gastro-esophageal reflux disease without esophagitis Category: Medical (2) Esophageal dysmotility: Code(s): K22.4 - Dyskinesia of esophagus Category: Medical (3) Chronic idiopathic constipation: Code(s): K59.04 - Chronic idiopathic constipation Category: Medical Plan She continues on famotidine, simethicone, and Linzess which we just increased to 290mcg. With this is he is moving her bowels well, and she is satisfied with her GI regimen. ROV 4 mos. Coding Level of Care Code Est Pt Level 3 (91080) Diagnoses GERD (gastroesophageal reflux disease) K21.9 Esophageal dysmotility K22.4 Chronic idiopathic constipation K59.04
[2024-06-22 14:33] VITALS: BP 138/83; PULSE 81; BMI 23.8
== END 2024-06-22 14:54 | disposition home or self-care (01) ==
PROVIDERS: PCP Internal Medicine; Visit Provider Nurse Practitioner
DX: K21.9 Gastro-esophageal reflux disease without esophagitis (principal); K22.4 Dyskinesia of esophagus; K59.04 Chronic idiopathic constipation
CPT/HCPCS: 99213

== ENCOUNTER → 2024-06-22 14:24 | Outpatient (BNVA) | payer MEDICARE, SELFPAY | PROVIDERS: PCP Internal Medicine; Visit Provider Nurse Practitioner | DX: K59.04 Chronic idiopathic constipation (principal); K21.9 Gastro-esophageal reflux disease without esophagitis; K22.4 Dyskinesia of esophagus; Z79.899 Other long term (current) drug therapy | CPT/HCPCS: 99212 ==

== ENCOUNTER 2025-02-16 12:48 | Outpatient (AMB) | payer MEDICARE, MEDICAID, SELFPAY ==
--- OUTSIDE RECORDS SUMMARY | 2025-02-16 12:51 | XMS_ITS | Clinical Summary ---
Author Organization [address] [place] [address] [place] [phone] Phone Care Team Providers Care Manager Radiation Name Role Phone Misael Santamaria MD Primary Care Provider [phone] Allergies No known active allergies Medications desvenlafaxine succinate (PRISTIQ) 50 mg 24 hr tablet 4 Active Linzess 72 mcg capsule Take 1 capsule (72 mcg total) by mouth 1 (one) time each day in the morning. Active clonazePAM (KlonoPIN) 0.5 mg tablet Take 1 tablet (0.5 mg total) by mouth 2 (two) times a day. Max Daily Amount: 1 mg Active simvastatin (ZOCOR) 20 mg tablet TAKE 1 TABLET BY MOUTH AT BEDTIME 90 tablet 5 Active baclofen (LIORESAL) 10 mg tablet 2.5 tabs 10 AM , two tabs 10 PM, 1 weekThree tabs 10 AM, two tabs 10 PM afterwards Active docusate sodium (COLACE) 100 mg capsule TAKE 1 CAPSULE BY MOUTH TWICE DAILY 180 capsule 5 Active Active Problems Problem Noted Date Diagnosed Date Hot flashes due to menopause 08/27/2024 Perimenopausal 08/27/2024 COVID 09/06/2021 Overview (08/27/2024): Pt reported positive home test 08/01/22 Constipation 01/08/2021 Hydronephrosis 12/07/2020 Overview (08/27/2024): 02/15 mild, no environmental change analyst time, Dr. Michaud, follow-up if necessary Hyperlipidemia 05/06/2018 Dermatofibroma 07/03/2015 Overview (08/27/2024): Dermatofibroma 07/12 left arm Degenerative disc disease, cervical 06/26/2015 Right shoulder pain 06/26/2015 Cerebral palsy ([facility] V24, [facility] V28) 2014 Overview (08/27/2024): G80.9 Depression 05/01/2015 Overview (08/27/2024): [facility] Stuttering 05/01/2015 Tachycardia 05/01/2015 Overview (08/27/2024): Per pt, takes metoprolol for this; sees Dr Dietrich. Neg EGG 07/11 Encounters Date Type Department Care Team Description 12/16/2024 11:00 AM EDT [facility] [address] [facility] [place] [id number] Misael Santamaria MD Mixed hyperlipidemia (Primary Dx); Skin problem; Recurrent major depressive disorder, in full remission ([facility] V24); Cerebral palsy, unspecified type ([facility] V24, [facility] V28) from Last 3 Months Immunizations Name Administration Dates Next Due Influenza Quadravalent, MDCK , 0.5ml, with preservative (Flucelvax) 6mo and older 07/10/2017 Influenza Quadrivalent, 0.5m l, preservative free (Fluarix; FluLaval; Fluzone) ages 6mo and older (Afluria) 3yo and older 07/22/2023,06/28/2021 Influenza trivalent, 0.5mL, preservative free (Fluarix; FluLaval; Fluzone) ages 6mo and older (Afluria) 3 years and older 07/24/2022 Influenza trivalent, with preservative (Fluzone; Afluria) 6mo and older 06/09/2020,05/21/2019,07/09/2018,2016,06/13/2015 Influenza, Unspecified 07/16/2023 Moderna SARS-CoV-2 COVID-19, mRNA, LNP-S, preservative free 07/24/2022 Pfizer SARS-CoV-2 COVID-19, mRNA, LNP-S, preservative free 02/06/2021,01/17/2021 Tdap Tetanus diptheria acell ular pertussis (Boostrix; Adacel) 7yo and older 05/15/2023,04/07/2013 Surgical History Surgery Date Site/Laterality Comments SECTION 1989 PROCEDURE: HISTORICAL DELIVERY APPENDECTOMY 2003 PROCEDURE: HISTORICAL APPENDECTOMY TUBAL LIGATION 1997 PROCEDURE: HISTORICAL TUBAL LIGATION HAND SURGERY 10/2018 Left PROCEDURE: HISTORICAL HAND SURGERY; COMMENT: thumb surgery for fracture NECK SURGERY 03/06/2022 PROCEDURE: HISTORICAL NECK SURGERY; COMMENT: Anterior cervical fusion Medical History Medical History Date Comments Hyperlipidemia 06/26/2015 DX:Hyperlipidemi a Chronic arm pain 06/26/2015 DX:Chronic arm pain; COMMENT: Right Degenerative disc disease, cervical 06/26/2015 DX:Degenerative disc disease, cervical; COMMENT: MRI 07/2014 degenerative changes at multiple levels / nerve root compression C3-C7 Cerebral palsy (CMS/HCC V24, CMS/HCC V28) 05/01/2015 DX:Cerebral palsy (HCC) Chronic constipation 05/13/2018 DX:Chronic constipation Depression 05/01/2015 DX:Depression; C OMMENT: [facility] Dermatofibroma 07/03/2015 DX:Dermatofibrom a; COMMENT: Dermatofibroma 07/12 left arm Redundant colon 05/13/2018 DX:Redundant col on Right shoulder pain 06/26/2015 DX:Right simone ulder pain Stuttering 05/01/2015 DX:Stuttering Tachycardia 05/01/2015 DX:Tachycardia; COMMENT: Per pt, takes metoprolol for this; sees Dr Dietrich. Neg EGG 07/11 Family History Medical History Relation Name Comments Colon cancer Father 78 later in life Coronary artery disease Father 78 Diabetes Father 78 Coronary artery disease Mother hype rlipidemia, aortic repair Diabetes Sister Breast cancer Neg Hx Hypertension Neg Hx Ovarian cancer Neg Hx Pancreatic cancer Neg Hx Prostate cancer Neg Hx Uterine cancer Neg Hx Relation Name Status Comments Father 78 Maternal Grandfather Maternal Grandmother Mother Paternal Grandfather Paternal Grandmother Sister Social History Tobacco Use Types Packs/Day Years Used Date Smoking Tobacco: Never Smokeless Tobacco: Never Tobacco Cessation:Counseling Given: Not Answered Alcohol Use Standard Drinks/Week Comments Yes 0 (1 standard drink = 0.6 oz pur e alcohol) Comments No Sex and Gender Information Value Date Recorded Sex Assigned at Not on file Legal Sex Female 2:01 AM EST Gender Identity Not on file Sexual Orientation Not on file Obstetrics History Last Filed Vital Signs Vital Sign Reading Time Taken Comments Blood Pressure 130/80 12/16/2024 11:27 AM EDT Pulse 116 12/16/2024 11:08 AM EDT Temperature 35.8 ??C (96.4 ??F) 08/27/2024 3:24 PM ES T Respiratory Rate - - Oxygen Saturation 98% 08/27/2024 3:24 PM EST Inhaled Oxygen Concentration - - Weight 64.8 kg (142 lb 12.8 oz) 025 11:08 AM EDT Height 160 cm (5' 3 ) 12/16/2024 11:08 AM EDT Body Mass Index 25.3 12/16/2024 11:08 AM EDT Plan of Treatment Upcoming Encounters Date Type Department Care Team (Late st Contact Info) Description 03/16/2025 1:40 PM EDT Appointment Radiology Department [address] [phone] Health Maintenance Due Date Last Done Comments Pneumococcal Vaccine: 50+ Years (1 of 1 - PCV) 2014 Zoster Vaccines (1 of 2) 2014 Colorectal Cancer Screening: Colonoscopy 09/06/2022 Depression Screening 09/06/2022 HIV Screening 09/06/2022 Hepatitis C Screening 09/06/2022 Medicare Annual Wellness Visit 09/06/2022 Social Influencers of Health Screening 09/06/2022 COVID-19 Vaccine ( season) 2024 07/24/2022, 02/06/2021, 01/17/2021 Cervical Cancer Screening: Pap Smear 10/14/2024 10/14/2021, 09/07/2018 Breast Cancer Screening 03/09/2026 03/09/20 24, 03/09/2024, 03/04/2023, Additional history exists Cholesterol Screening (Lipid Panel) 12/16/2029 12/16/2024 DTaP,Tdap,and Td Vaccines (3 - Td or Tdap) 05/15/2033 05/15/2023, 04/07/2013 RSV Immunization Adult Patients (1 - 1-dose 75+ series) 2039 Influenza Vaccine Completed 07/18/2024, , 07/16/2023, Additional history exists HIB Vaccines Aged Out No longer eligi ble based on patient's age to complete this topic HPV Vaccines Aged Out No longer eligi ble based on patient's age to complete this topic Hepatitis A Vaccines Aged Out No long er eligible based on patient's age to complete this topic Hepatitis B Vaccines Aged Out No long er eligible based on patient's age to complete this topic IPV Vaccines Aged Out No longer eligi ble based on patient's age to complete this topic MMR Vaccines Aged Out No longer eligi ble based on patient's age to complete this topic Meningococcal ACWY Vaccine Aged Out N o longer eligible based on patient's age to complete this topic Meningococcal B Vaccine Aged Out No l onger eligible based on patient's age to complete this topic Pneumococcal Vaccine: Pediatrics (0 to 5 Years) and At-Risk Patients (6 to 64 Years) Aged Out No longer eligible based on patient's age to complete this topic RSV Immunization Patients Under 20 months Aged Out No longer eligible based on patient's age to complete this topic Varicella Vaccines Aged Out No longer eligible based on patient's age to complete this topic Procedures Procedure Name Priority Date/Time Associated Diagnosis Comments LIPID PANEL WITH REFLEX TO DIRECT LDL Routine 12/16/2024 11:48 AM EDT Mixed hyperlipidemia COMPREHENSIVE METABOLIC PANEL Routine 12/16/2024 11:48 AM EDT Mixed hyperlipidemia SCREENING MAMMOGRAPHY BI 2-VIEW BREAST INC CAD Routine 03/09/2024 1:48 PM EDT Encounter for screening mammogram for malignant neoplasm of breast PAP SMEAR Routine 10/14/2021 from Last 3 Months or Most Recently Relevant to Health Maintenance Results * (ABNORMAL) Lipid panel with reflex to direct LDL (12/16/2024 11:48 AM EDT) Cholesterol 238(H) 0 - 200 mg/dL LAB CHEMISTRY METHOD 12/16/2024 3:44 PM EDT [facility] Triglycerides 426(H) 0 - 150 mg/dL LAB CHEMISTRY METHOD 12/16/2024 3:44 PM EDT [facility] HDL 38(L) >=40 mg/dL LAB CHEMISTRY METHOD 12/16/2024 3:44 PM EDT [facility] LDL Calculated 115(H) 0 - 100 mg/dL LAB CHEMISTRY METHOD 12/16/2024 3:44 PM EDT [facility] Comment:Unable to calculate when triglycerides >400 mg/dL. VLDL Cholesterol Reggie 85.2 mg/dL LAB CHEMISTRY METHOD 12/16/2024 3:44 PM EDT [facility] Comment:Unable to calculate when triglycerides >400 mg/dL. Non HDL Chol. (LDL+VLDL) 200(H) <145 mg/dL LAB CHEMISTRY METHOD 12/16/2024 3:44 PM EDT [facility] Comment:Unable to calculate when triglycerides >400 mg/dL. Chol/HDL Ratio 6.3(H) 0.0 - 4.4 LAB CHEMISTRY METHOD 12/16/2024 3:44 PM EDT [facility] Blood Venous blood specimen / Unknown Venipuncture / Unknown 12/16/2024 11:48 AM EDT 12/16/2024 11:48 AM EDT us Misael Santamaria MD LAB BLOOD ORDERABLES Final Resu lt [facility] [address] [place] [address], [place] [phone] * (ABNORMAL) Comprehensive metabolic panel (12/16/2024 11:48 AM EDT) Sodium 141 133 - 145 mmol/L LAB CHEMISTRY METHOD 12/16/2024 3:35 PM [facility] Potassium 4.2 3.5 - 5.5 mmol/L LAB CHEMISTRY METHOD 12/16/2024 3:35 PM [facility] Chloride 107 96 - 110 mmol/L LAB CHEMISTRY METHOD 12/16/2024 3:35 PM [facility] CO2 27 21 - 32 mmol/L LAB CHEMISTRY METHOD 12/16/2024 3:35 PM [facility] Anion Gap 7 3 - 11 LAB CHEMISTRY METHOD 12/16/2024 3:35 PM [facility] Glucose 86 70 - 100 mg/dL LAB CHEMISTRY METHOD 12/16/2024 3:35 PM [facility] BUN 20 5 - 25 mg/dL LAB CHEMISTRY METHOD 12/16/2024 3:35 PM [facility] Creatinine 0.74 0.50 - 1.10 mg/dL LAB CHEMISTRY METHOD 12/16/2024 3:35 PM [facility] eGFR 93 >=60 mL/min/1. 73m2 LAB CHEMISTRY METHOD 12/16/2024 3:35 PM [facility] Comment:Calculation based on the??Chronic Kidney Disease Epidemiology Collaboration (CKD-EPI) equation refit??without adjustment for race. BUN/Creatinine Ratio 27.0 LAB CHEMISTRY METHOD 12/16/2024 3:35 PM [facility] Calcium 9.5 8.5 - 10.5 mg/dL LAB CHEMISTRY METHOD 12/16/2024 3:35 PM [facility] AST (SGOT) 25 10 - 42 unit/L LAB CHEMISTRY METHOD 12/16/2024 3:35 PM [facility] ALT (SGPT) 33 10 - 60 unit/L LAB CHEMISTRY METHOD 12/16/2024 3:35 PM [facility] Alkaline Phosphatase 165(H) 42 - 121 unit/L LAB CHEMISTRY METHOD 12/16/2024 3:35 PM EDT [facility] Total Protein 7.0 6.0 - 8.0 g/dL LAB CHEMISTRY METHOD 12/16/2024 3:35 PM EDT [facility] Albumin 4.1 3.2 - 5.0 g/dL LAB CHEMISTRY METHOD 12/16/2024 3:35 PM EDT [facility] Total Bilirubin 0.2 0.0 - 1.4 mg/dL LAB CHEMISTRY METHOD 12/16/2024 3:35 PM EDT [facility] Blood Venous blood specimen / Unknown Venipuncture / Unknown 12/16/2024 11:48 AM EDT 12/16/2024 11:48 AM EDT Misael Santamaria MD LAB BLOOD ORDERABLES Final Resu lt [facility] [address] [place] [address], * SCREENING MAMMOGRAPHY BI 2-VIEW BREAST INC CAD (03/09/2024 1:48 PM EDT) Anatomical Region Laterality Modality Radiographic Laura ging 03/04/2023 1:15 PM EDT Narrative 03/10/2024 4:56 PM EDT This is a summary report. The complete report is available in the patient's medical record. If you cannot access the medical record, please contact the sending organization for a detailed fax or copy. BILATERAL 3D DIGITAL SCREENING MAMMOGRAM History: Routine screening. ??No current breast complaints. ?? Comparison: Multiple priors dating back to 04/20/2019 Technique: Bilateral full-field digital 3D mammography was performed using standard CC and MLO projections CAD was used to evaluate this mammogram. Findings: Density: ?? The breasts are heterogeneously dense which may obscure small masses-C RIGHT: No suspicious masses, groups of microcalcification or areas of architectural distortion identified. Stable typically benign parenchymal asymmetries. ??Typically benign scattered calcifications. LEFT: No suspicious masses, groups of microcalcifications or areas of architectural distortion identified. Stable typically benign parenchymal asymmetries. ??Typically benign scattered calcifications. IMPRESSION: : 1. ??No mammographic evidence of malignancy. BI-RADS Category 2 benign findings Recommendation: Routine annual screening mammography is recommended Procedure Note Ephraim Adam MD - 07/13/2024 This is a summary report. The complete report is available in thepatient's medical record. If you cannot access the medical record, pleasecontact the sending organization for a detailed fax or copy. BILATERAL 3D DIGITAL SCREENING MAMMOGRAM History: Routine screening. No current breast complaints. Comparison: Multiple priors dating back to 04/20/2019 Technique: Bilateral full-field digital 3D mammography was performed usingstandard CC and MLO projections CAD was used to evaluate this mammogram. Findings: Density: The breasts are heterogeneously dense which may obscure smallmasses-C RIGHT: No suspicious masses, groups of microcalcification or areas ofarchitectural distortion identified. Stable typically benign parenchymalasymmetries. Typically benign scattered calcifications. LEFT: No suspicious masses, groups of microcalcifications or areas ofarchitectural distortion identified. Stable typically benign parenchymalasymmetries. Typically benign scattered calcifications. IMPRESSION: : 1. No mammographic evidence of malignancy. BI-RADS Category 2 benign findings Recommendation: Routine annual screening mammography is recommended [facility] IMG XR PROCEDURES Final Resu lt * Pap smear (10/14/2021) 10/14/2021 Narrative HISTORICAL TESTING LAB RESULTING AGENCY - 10/31/2021 10:56 AM EST [id number] THINPREP PAP, IMAGED: NEGATIVE FOR SQUAMOUS INTRAEPITHELIAL LESION AND MALIGNANCY . ATROPHY WITH INFLAMMATION IS PRESENT. ABUNDANT RED BLOOD CELLS ARE PRESENT. NOTE: THE PAP TEST IS A SCREENING TEST WITH AN INHERENT FALSE NEGATIVE RATE. AUTOMATED PRESCREENING OF ALL LIQUID BASED SPECIMENS IS PERFORMED BY THE THINPREP IMAGING SYSTEM UNLESS OTHERWISE STATED. MAHIN SINGH([facility]) (CASE ELECTRONICALLY SIGNED 10 31 2021) RESULT OF APTIMA HIGH RISK HPV ASSAY: HIGH RISK HPV: ??NEGATIVE (SEROTYPES 16,18,31,33,35,39,45,51,52,56,58,59,66,68) COMPLETED ON 2021-10-17 ADEQUACY: SATISFACTORY . SOURCE: THINPREP PAP HPV ANY DX: ??REFLEX 16 AND 18, CERVICAL, IMAGED CLINICAL INFORMATION: HPV ANY DIAGNOSIS. MENOPAUSE, PAP HX NEG, LMP 11/25/16, Z12.4 us [facility] LAB CYTOLOGY ORDERABLES Deena mays Result HISTORICAL TESTING LAB RESULTING AGENCY from Last 3 Months or Most Recently Relevant to Health Maintenance Insurance MEDICARE MEDICAID - [place] Care Teams Manager Radiation Relationship Specialty Start Date End Date Misael Santamaria MD [address] [facility] [place] [address] PCP - General Internal Medicine 08/27/24
--- NOTE | 2025-02-16 12:52 | A.OFFVIS_ITS ---
Vital Signs 02/16/25 13:05 Height 5 ft 3 in Weight 134 lb BMI 23.7 BP 156/92 H Blood Pressure Location Rt brachial Position Sitting Pulse 98 Pulse Source Pulse Oximeter Pulse Oximetry (%) 98 Oxygen Delivery Method Room Air Intake Visit Reasons: Follow up [facility], Gerd Intake Note: ESTABLISHED PATIENT for GERD + [facility] mgmt. DENIA 06/22/2024 CC; Pt denies any GI sx or concerns at this time. Rx still effective for tx. Pt does need refill of linzess. Faculty Support Coordinator Required: No Accompanied by: Self / Same As Patient Allergies No Known Allergies Allergy (Verified 02/16/25 12:58) HPI HPI Follow up [facility], Gerd: Details: Assessment & Plan (1) GERD (gastroesophageal reflux disease): Code(s): K21.9 - Gastro-esophageal reflux disease without esophagitis Category: Medical (2) Esophageal dysmotility: Code(s): K22.4 - Dyskinesia of esophagus Category: Medical (3) Chronic idiopathic constipation: Code(s): K59.04 - Chronic idiopathic constipation Category: Medical Plan She continues on famotidine, simethicone, and Linzess which we just increased to 290mcg. With this is he is moving her bowels well, and she is satisfied with her GI regimen. ROV 4 mos. TODAY'S VISIT She continues on famotidine, simethicone, and Linzess which we just increased to 290mcg. She continues to be happy with her GI regimen and does not require any changes at this time. She is having increasing problems with spasticity in her LE's, will be trying botox injections. She has an appt for a second opinion at [facility] in October. ROV 6 mos. [facility] Medical History Cerebral palsy Elevated cholesterol Depression GERD (gastroesophageal reflux disease) Hiatal hernia Ambulates with cane Dysphagia Acute epigastric pain Surgical History History of esophagogastroduodenoscopy (EGD) History of surgery H/O colonoscopy History of section History of tubal ligation H/O thumb surgery Hx of discectomy Hx of appendectomy Family History Father Colon cancer Social History Alcohol intake: current Alcohol intake frequency: a few times a month Alcohol type: beer Patient Tobacco Use Status: Never used Tobacco Review of Systems Const Denies fatigue, Denies fever(s), Denies night sweats, Denies poor appetite and Denies weight loss Eyes Details: glasses Reports requires corrective lenses ENT Reports Normal hearing present, Denies dental pain, Denies dysphagia, Denies hearing loss, Denies mouth pain, Denies odynophagia, Denies throat swelling, Denies tongue swelling and Reports other (Dentition adequate) Card Reports no additional complaints Resp Reports no additional complaints GI Details: Denies abdominal pain, Denies melena, Denies bloating, Denies hematochezia, Reports constipation, Denies GI cramping, Denies dysphagia, Denies excessive flatus, Denies early satiety, Reports heartburn, Denies diarrhea, Denies nausea, Denies odynophagia, Denies vomiting and Denies hematemesis Musc Reports abnormal gait Skin/Breast Denies pruritus, Denies lesions, Denies rash and Denies jaundice Neuro Details: Reports increasingly spastic gait Reports Normal hearing present, Reports Abnormal speech present, Reports abnormal gait, Reports lack of coordination and Reports paresthesias (Back of head) Endo Denies fatigue Aller/Immun Denies throat swelling and Denies tongue swelling Physical Exam Vital Signs: Last Vital Signs Pulse 98 02/16/25 13:05 BP 156/92 H 02/16/25 13:05 Pulse Ox 98 02/16/25 13:05 Oxygen Delivery Method Room Air 02/16/25 13:05 BMI result Body Mass Index 23.7 Const General: cooperative, no acute distress, well developed and well groomed Nutritional Appearance: average body habitus and well nourished Orientation/consciousness: oriented to person, oriented to place and oriented to time Limitations: No language barrier and ambulation with cane HEENT Head: Yes normocephalic and Yes atraumatic Eyes General: appearance normal, both eyes and all related structures Pupils: Equal, round and reactive pupils present Neck Neck: Yes normal visual inspection and Yes no lymphadenopathy Thyroid: Thyroid normal Resp Effort & Inspection: normal respiratory effort and able to speak in complete sentences Auscultation: clear to auscultation bilaterally Cardio Rate: regular rate Rhythm: regular rhythm Heart sounds: Normal, physiologic split S2 sound present Peripheral pulses: radial pulses present and posterior tibial pulses present GI Inspection: No distended and No Abdominal panniculus present Palpation (GI): Soft to palpation, nontender, no guarding, not rigid and No hepatosplenomegaly present Percussion: Yes normal to percussion Auscultation: normal bowel sounds Rectal Exam - Female: deferred Skin General skin exam: no rashes or lesions noted, turgor normal, skin not dry, no jaundice, No spider nevi and no striae Rashes: no rashes Nails: normal Neuro General: oriented to person, oriented to place, oriented to time, No gait normal and No tone normal Cranial nerves: Yes Equal, round and reactive pupils present and Yes Normal hearing present Speech: Abnormal speech present Extrem General: Yes normal to inspection, No clubbing, No cyanosis and No edema Psych Appearance: grossly normal and well kempt Mental Status: mental status grossly normal Speech and movement: Other speech and movement exam findings present (Psych) (Has a profound stutter at her baseline) Affect: normal affect Attitude: cooperative Thought process: Normal thought process present and not confabulating Thought content: Normal thought content present Insight: Good insight present (Psych) Judgement: Good judgement present (Psych) Assessment & Plan Assessment & Plan (1) GERD (gastroesophageal reflux disease): Code(s): K21.9 - Gastro-esophageal reflux disease without esophagitis Category: Medical (2) Chronic idiopathic constipation: Code(s): K59.04 - Chronic idiopathic constipation Category: Medical Plan She continues on famotidine, simethicone, and Linzess which we just increased to 290mcg. She continues to be happy with her GI regimen and does not require any changes at this time. She is having increasing problems with spasticity in her LE's, will be trying botox injections. She has an appt for a second opinion at [facility] in October. ROV 6 mos. Medications: New docusate sodium 100 mg PO BID 60 caps 6RF K21.9 - Gastro-esophageal reflux disease without esophagitis, K59.04 - Chronic idiopathic constipation Refilled famotidine (Pepcid) 40 mg PO BEDTIME 30 tabs 6RF K21.9 - Gastro-esophageal reflux disease without esophagitis linaclotide (Linzess) 290 mcg PO QAM 30 caps 6RF K59.04 - Chronic idiopathic constipation simethicone after meals 180 mg PO QID 120 caps 3RF 30 days Coding Level of Care Code Est Pt Level 3 (37124) Diagnoses GERD (gastroesophageal reflux disease) K21.9 Chronic idiopathic constipation K59.04
[2025-02-16 13:05] VITALS: BP 156/92; PULSE 98; O2SAT 98; BMI 23.7
== END 2025-02-16 13:43 | disposition home or self-care (01) ==
LOC: HO.HGI 12:49
PROVIDERS: PCP Internal Medicine; Visit Provider Nurse Practitioner
DX: K21.9 Gastro-esophageal reflux disease without esophagitis (principal); K59.04 Chronic idiopathic constipation
CPT/HCPCS: 99213

== ENCOUNTER → 2025-02-16 12:48 | Outpatient (BNVA) | payer MEDICARE, MEDICAID, SELFPAY | PROVIDERS: PCP Internal Medicine; Visit Provider Nurse Practitioner | DX: K21.9 Gastro-esophageal reflux disease without esophagitis (principal); K59.04 Chronic idiopathic constipation | CPT/HCPCS: 99212 ==

== ENCOUNTER 2025-08-17 12:00 | Outpatient (AMB) | payer MEDICARE, MEDICAID, SELFPAY ==
--- NOTE | 2025-08-17 12:03 | A.OFFVIS_ITS ---
Vital Signs 08/17/25 12:10 Height 5 ft 3 in Weight 142 lb BMI 25.2 BP 144/76 H Blood Pressure Location Rt brachial Position Sitting Pulse 96 Pulse Source Pulse Oximeter Pulse Oximetry (%) 97 Oxygen Delivery Method Room Air Intake Visit Reasons: CIC, GERD Intake Note: Est pt for mgmt of GERD + CIC. CC; C.O. chronic sx persistence despite current therapies. Pt confirms she is taking the rx'd meds as instructed and w/o complication. However, she is still experiencing constipation and GERD sx. Pt reports having BM typically every other day. Legal Mediator Required: No Accompanied by: Self / Same As Patient Allergies No Known Allergies Allergy (Verified 02/16/25 12:58) Medication List - Last Reconciled 08/17/25 by ADARSH Arteaga baclofen 10 mg PO BID clonazepam (Klonopin) 0.25 mg PO BID desvenlafaxine succinate ER 50 mg PO DAILY docusate sodium 100 mg PO BID famotidine (Pepcid) 40 mg PO BEDTIME linaclotide (Linzess) 290 mcg PO QAM multivitamin (Daily Vitamin Formula tablet) 1 tab PO DAILY multivitamin with iron 1 tab PO DAILY simethicone 180 mg PO QID 30 days simvastatin 20 mg PO BEDTIME HPI HPI CIC, GERD: Details: Assessment & Plan (1) GERD (gastroesophageal reflux disease): Code(s): K21.9 - Gastro-esophageal reflux disease without esophagitis Category: Medical (2) Chronic idiopathic constipation: Code(s): K59.04 - Chronic idiopathic constipation Category: Medical Plan She continues on famotidine, simethicone, and Linzess which we just increased to 290mcg. She continues to be happy with her GI regimen and does not require any changes at this time. She is having increasing problems with spasticity in her LE's, will be trying botox injections. She has an appt for a second opinion at [facility] in October. ROV 6 mos. Medications: New docusate sodium 100 mg PO BID 60 caps 6RF K21.9 - Gastro-esophageal reflux disease without esophagitis, K59.04 - Chronic idiopathic constipation Refilled famotidine (Pepcid) 40 mg PO BEDTIME 30 tabs 6RF K21.9 - Gastro-esophageal reflux disease without esophagitis linaclotide (Linzess) 290 mcg PO QAM 30 caps 6RF K59.04 - Chronic idiopathic constipation simethicone after meals 180 mg PO QID 120 caps 3RF 30 days TODAYS VISIT [facility] Medical History Cerebral palsy Elevated cholesterol Depression GERD (gastroesophageal reflux disease) Hiatal hernia Ambulates with cane Dysphagia Acute epigastric pain Surgical History History of esophagogastroduodenoscopy (EGD) History of surgery H/O colonoscopy History of section History of tubal ligation H/O thumb surgery Hx of discectomy Hx of appendectomy Family History Father Colon cancer Social History Alcohol intake: current Alcohol intake frequency: a few times a month Alcohol type: beer Patient Tobacco Use Status: Never used Tobacco Review of Systems ENT Reports Normal hearing present Neuro Reports Normal hearing present and Reports Abnormal speech present Physical Exam Vital Signs: Last Vital Signs Pulse 96 08/17/25 12:10 BP 144/76 H 08/17/25 12:10 Pulse Ox 97 08/17/25 12:10 Oxygen Delivery Method Room Air 08/17/25 12:10 BMI result Body Mass Index 25.2 Const General: cooperative, no acute distress, well developed and well groomed Nutritional Appearance: average body habitus and well nourished Orientation/consciousness: oriented to person, oriented to place and oriented to time Limitations: No language barrier and ambulation with walker HEENT Head: Yes normocephalic and Yes atraumatic Eyes General: appearance normal, both eyes and all related structures Pupils: Equal, round and reactive pupils present Neck Neck: Yes normal visual inspection and Yes no lymphadenopathy Thyroid: Thyroid normal Resp Effort & Inspection: normal respiratory effort and able to speak in complete sentences Auscultation: clear to auscultation bilaterally Cardio Rate: regular rate Rhythm: regular rhythm Heart sounds: Normal, physiologic split S2 sound present Peripheral pulses: radial pulses present and posterior tibial pulses present GI Inspection: No distended and No Abdominal panniculus present Palpation (GI): Soft to palpation, nontender, no guarding, not rigid, No hepatosplenomegaly present and Hepatosplenomegaly present Percussion: Yes normal to percussion Auscultation: normal bowel sounds Rectal Exam - Female: deferred Skin General skin exam: no rashes or lesions noted, turgor normal, skin not dry, no jaundice, No spider nevi and no striae Rashes: no rashes Nails: normal Neuro General: oriented to person, oriented to place and oriented to time Cranial nerves: Yes Equal, round and reactive pupils present and Yes Normal hearing present Speech: Abnormal speech present Details: stutter Extrem General: Yes normal to inspection, No clubbing, No cyanosis and No edema Psych Appearance: grossly normal and well kempt Mental Status: mental status grossly normal Speech and movement: Slowed speech present (Psych) Affect: normal affect Attitude: cooperative Thought process: Normal thought process present and not confabulating Thought content: Normal thought content present Insight: Good insight present (Psych) Judgement: Good judgement present (Psych) Assessment & Plan Assessment & Plan (1) Chronic idiopathic constipation: Code(s): K59.04 - Chronic idiopathic constipation Category: Medical (2) GERD (gastroesophageal reflux disease): Code(s): K21.9 - Gastro-esophageal reflux disease without esophagitis Category: Medical Plan She continues on famotidine, simethicone, and Linzess which we just increased to 290mcg. Subjective Patient presents for medication reconciliation and ongoing constipation. Reports running out of Linzess and requiring a reorder; currently having bowel movements about every other day with very hard, small stools and prolonged straining. Endorses evening abdominal hardness/bloating and intermittent pain localized to the left upper quadrant. Notes this constipation has been present for years. Continues docusate. Famotidine continues to help heartburn. Has simethicone available at home. Current anxiolytic is clonazepam rather than diazepam due to prior lack of benefit with diazepam. Relevant Past Medical, Social, and Family History Objective Assessment & Plan Chronic constipation with bloating and LUQ discomfort: Longstanding constipation with hard stools and [id number] bowel movements; evening bloating and LUQ discomfort likely related to stool burden at the splenic flexure. Currently on Linzess and docusate. - Add senna at bedtime, 1?2 tablets; if diarrhea occurs, stop senna first and revert to prior regimen. - Continue Linzess as prescribed. - Continue docusate. - For bloating, take simethicone regularly, at least twice daily for symptom relief. - Education provided regarding anatomic turn of colon (splenic flexure) contributing to localized LUQ discomfort when stool is hard. - Prescription for senna sent; if not covered by insurance, patient may use OTC Senokot. - Follow up in 6 months; call sooner if symptoms persist or worsen. Earlier follow-up (~8 weeks) offered if needed. Medication reconciliation: Updated active medication list to clonazepam 0.5 mg twice daily (patient preference and benefit) and added multivitamin. Confirmed baclofen, docusate, simvastatin, Linzess, desvenlafaxine, multivitamin. Discontinued diazepam. - Continue current regimen as reconciled above. Heartburn (GERD), controlled: Symptoms well controlled on famotidine. - Continue famotidine. ROV 6 months Medications: New sennosides (Senna Laxative) 17.2 mg (2 x 8.6 mg) PO BEDTIME PRN 60 tabs 6RF constipation Refilled simethicone after meals 180 mg PO QID 120 caps 6RF 30 days Coding Level of Care Code Est Pt Level 3 (77092) Diagnoses Chronic idiopathic constipation K59.04 GERD (gastroesophageal reflux disease) K21.9
[2025-08-17 12:10] VITALS: BP 144/76; PULSE 96; O2SAT 97; BMI 25.2
--- OUTSIDE RECORDS SUMMARY | 2025-08-17 18:12 | XMS_ITS | Data Portability ---
Author Organization [facility] [employer] Address [address] [place] [id number] Care Team Providers Care Tree Driller Name Role Phone RIYA TRAMMELL Referring Provider AMALIA RAZA Primary Care Provider Assessment Encounter Date Assessment Date Assessment LastModified by Organization Details LastModified Time 09/08/2023 09/08/2023 IMPRESSION: Cerebral palsy --Episodes of tremor which comes in 5 to 10-minute episodes and appears to look like myoclonic jerks and is now spreading to the right without change in consciousness likely due to worsening of the cerebral palsy. Context of cervical spine surgery February 2022 with worsening before surgery and a bit after as well. This is not seizure. There is also worsening gait and left head tingling. -- Historically, improvement of symptoms when she was initiated on Baclofen 10 mg every evening correlating with near resolution of discomfort bilaterally of lower extremities and shakiness, often at the same time as the tight discomfort, of left upper and lower extremities, subsequent increase at her July 19, 2020 visit, however has had gradual increase in the tightness with occasional episodes of shaking on the left upper extremity affected more than the lower extremities. CURRENTLY: September 08, 2023: She reports that spasms are about the same and gets tightness when walking, sometimes with difficulty with spasm when trying to go up a curb. She continues baclofen 20 mg morning upon awakening and 20 mg at bedtime. She has previously had a trial of the addition of 10 mg at 4 PM but had excessive sleepiness. She has not noticed a particular time of day that she has worsening although she does not have any spasms at night. I suggested she could have some flexibility in the timing of her baclofen but without changing her 24-hour dose, but first, suggested she evaluate the timing for 2 or 3 days of the emergence of any spasms or tightness. Since she is sleepy in the day, I suggested a trial of decreasing the morning baclofen to 1-1/2 tablets, 15 mg and half a tablet at 4:00 in the afternoon for a few days and if no worsening in the morning symptoms and no improvement in the afternoon symptoms, she could continue to adjust it to 10 mg in the morning, 10 mg at 4 PM and continue 20 mg at night. Alternatively, if she has reemergence of worsening symptoms by reducing the morning baclofen, she could instead reduce the nighttime cough and using the same strategy. However, I have advised her not to change her 24-hour dose and cautioned her regarding the risk for withdrawal seizures (she has experienced increased spasms when late for refilling her baclofen in the past). I am not going to renew levetiracetam for the time being as she has not been taking it although she did report that it was helpful for the arm shaking in February 2023 at 250 mg nightly. (Spasms/spastici ty bothers her more than the shaking ) we can reconsider at in the future. She did not remember why she did not refill it and continue it. REVIEW: March 04, 2023: She has improvement of shaking limbs with very little breakthrough with the addition of levetiracetam 250 mg nightly. It has not been necessary to add the morning dose. Therefore, we decide on continuing nighttime only with the option of increasing it in the future if necessary. I have changed her prescription to reflect 500 mg 1/2 tablet nightly. She continues baclofen 10 mg, 2 tablets every morning and 2 tablets every night. She has been having hip pain on the left ever since her surgical surgery, she has had injections for this with her manager plumbing which have not been helping. Examination notable for active trigger point at the left skull base and ongoing spastic gait. As her radiating head pain is addressed by physiatry, we will not be managing it unless she explicitly asks us to. She understands. We decide on a 6-month follow-up. REVIEW of December 25, 2022 rationale for initiating levetiracetam: When she shows me her t remor , it looks like a bit of a jerking motion on the left with flexion at the elbow. These episodes last for 5 to 10 minutes and are now spreading to the right side without any change in consciousness. It occurred before she had cervical spine surgery and may have worsened a bit afterwards. This is likely progression of her cerebral palsy. She did not tolerate an increase afternoon dose of baclofen when she was given a trial in November 2021. Therefore, we will give her a trial of levetiracetam beginning with a low-dose to see how she tolerates it. She is working with neurosurgery and physiatry for radicular pain in the left arm. We did not address the constant tingling that she is experiencing on the left side of the head which started after having cervical spine surgery. She is describing worsening of gait but has been to physical therapy in the past and did not gain much from it. She is not using her cane today. Medications: From [facility]: baclofen prescription for 10 mg tablet, 2 twice daily and 1 tab at 4pm : Did not tolerate the addition of the 4 PM dose and is only taking 20 mg twice daily. Levetiracetam 500 mg, 0.5 tablets nightly, decreased from twice daily February 2023, did not continue From others: citalopram, clonazepam 0.5 mg twice daily which she continues through her psychiatrist, simvastatin 20 mg 1 tablet daily, meloxicam 15 mg as needed: Rarely takes it lately, multivitamin and is no longer using as needed polyethylene glycol PLAN Natalie Sierra onnell September 08, 2023 CONTINUE BACLOFEN 10 mg tablets: CONTINUE 2 tablets in the morning and 2 tablets at bedtime (10 am and 10pm) for a few days and monitor what time of day you have worsening of tightness when you are walking or trying to step up on a curb. As we have previously tried having a 4 PM 10 mg dose, I do not suggest increasing your 24-hour baclofen, however, as you are sometimes sleepy, you could morning baclofen to 1 and 10mg tablets (15mg all together instead of 20mg) and try taking the half tablet in the afternoon to see if that helps with your walking. Not helping and you are not too sleepy in the afternoon (and of course if you do not have worsening in the morning) you could further reduce the morning tablet to 10 mg in the morning and increase the afternoon from half a tablet to a full tablet, 10 mg and for now, continue baclofen 2 tablets at night. (However as we discussed at your appointment, if you are not having spasms at nighttime and you need the full 2 tablets in the morning, I do not object to your changing the nighttime dose to 1-1/2 tablets instead of the morning dose) Baclofen may cause side effects of tiredness or feeling of weakness. If this happens, reduce back to your previous dose when you did not have side effects. Episodes of myoclonic jerks ( t remors / shaking ) As you have not continued levetiracetam for the myoclonic jerks/shaking of the arm, I am not continuing it for now, we can reconsider in the future. 250 mg nightly seemed to help without the addition of the morning dose. You are not sure why you stopped it in February 2023 PREVIOUSLY: Historically, you have reported tingling on the left lower arm and hand and you are again describing the sensation. You are now under the care of a neurosurgeon and a manager plumbing and I defer to them for the management of radicular symptoms. However, as you have significant spasticity on that side and can have intermittent tingling, I recommend that you continue with stretching as we had recommended in the past. We have decided that you will ask of explicitly if you would like us to address the radiating head pain. You have reported it would be difficult for you to go to physical in therapy in [place] for myofascial release which is something that you have not tried, especially as you are now live in [place]. For the tingling from time to time down your back of your left lower arm into your hand: Continue to stretch your hand and your fingers following the maneuver that you were shown in the past in the office several times a day and especially when that tingling occurs. Massage that muscle as showed you on the back of your forearm just distant of your elbow toward your hand. Follow up in 3 months to see how you do with a trial of adjusting your baclofen schedule without changing your 24-hour dose and if no adjustments in schedule, we can consider reintroducing levetiracetam 250 mg nightly for myoclonic jerks herson Not available 09/08/2023 16:17:55 12/08/2023 12/08/2023 IMPRESSION: Cerebral palsy --Episodes of tremor which comes in 5 to 10-minute episodes and appears to look like myoclonic jerks and is now spreading to the right without change in consciousness likely due to worsening of the cerebral palsy. Context of cervical spine surgery February 2022 with worsening before surgery and a bit after as well. This is not seizure. There is also worsening gait and left head tingling. -- Historically, improvement of symptoms when she was initiated on Baclofen 10 mg every evening correlating with near resolution of discomfort bilaterally of lower extremities and shakiness, often at the same time as the tight discomfort, of left upper and lower extremities, subsequent increase at her July 19, 2020 visit, however has had gradual increase in the tightness with occasional episodes of shaking on the left upper extremity affected more than the lower extremities. CURRENTLY: December 08, 2023: She has added 10 mg of baclofen at 4 PM which has been helping with spasticity while ambulating. She has continued 20 mg in the morning and 20 at night. We had tried this regimen previously but she had excessive sleepiness and therefore at our most recent discussion, we discussed shifting the timing of the 40 mg per 24 hours. Presently, she has some sleepiness but does not feel that it is changed and wishes to continue taking 50 mg per 24 hours (she now tells me that on some afternoon she does not take it). She has not run out of her medication and has just refilled it. I will renew it with up to 5 tablets/day. I have counseled her that it is okay to take one 10 mg tablet as needed but she should not stop the baclofen abruptly. Additionally, she is frequently tired in the morning upon awakening and she does not have any spasms at night. I told her that it was okay to try taking 1.5 10mg baclofen tablets at night to see if she has any improvement in the morning. Or, if she prefers to reduce her morning baclofen to 1 and half tablets but I have asked her not to change more than half a tablet at once (other than continuing to take the 4 PM 10 mg as needed) while she is making any other medication changes. I offered a retrial of levetiracetam for the episodes of shaking and she has previously reported a good response at 250 mg nightly without further increase. She declines for now. We will plan a 6-month follow-up unless she decides to make the small baclofen changes as described above in which case she will contact me for an earlier appointment. Medications: From [facility]: baclofen prescription for 10 mg tablet, 2 twice daily and 1 tab at 4pm : Did not tolerate the addition of the 4 PM dose and is only taking 20 mg twice daily, subsequently reduced and increased again, tolerating afternoon dose reported November 2023. Levetiracetam 500 mg, 0.5 tablets nightly, decreased from twice daily February 2023, did not continue From others: Linzess, citalopram, clonazepam 0.5 mg twice daily which she continues through her psychiatrist, simvastatin 20 mg 1 tablet daily, meloxicam 15 mg as needed: Rarely takes it lately, multivitamin and is no longer using as needed polyethylene glycol PLAN Natalie Fabian Roderick Sierra onnell December 08 2023 CONTINUE BACLOFEN 10 mg tablets: CONTINUE 2 tablets in the morning and 2 tablets at bedtime (10 am and 10pm) and 1 tablet at 4 PM. If she is okay to take the 4 PM dose as needed. If you wish, you may reduce your baclofen regimen by half a tablet, 5 mg at night or in the morning -if you do so, please contact me for an earlier appointment Baclofen may cause side effects of tiredness or feeling of weakness. If this happens, reduce back to your previous dose when you did not have side effects. Episodes of myoclonic jerks ( t remors / shaking ) As you have not continued levetiracetam for the myoclonic jerks/shaking of the arm, I am not continuing it for now, we can reconsider in the future. 250 mg nightly seemed to help without the addition of the morning dose. You are not sure why you stopped it in February 2023 PREVIOUSLY: Historically, you have reported tingling on the left lower arm and hand and you are again describing the sensation. You are now under the care of a neurosurgeon and a manager plumbing and I defer to them for the management of radicular symptoms. However, as you have significant spasticity on that side and can have intermittent tingling, I recommend that you continue with stretching as we had recommended in the past. We have decided that you will ask of explicitly if you would like us to address the radiating head pain. You have reported it would be difficult for you to go to physical in therapy in [place] for myofascial release which is something that you have not tried, especially as you are now live in [place]. For the tingling from time to time down your back of your left lower arm into your hand: Continue to stretch your hand and your fingers following the maneuver that you were shown in the past in the office several times a day and especially when that tingling occurs. Massage that muscle as showed you on the back of your forearm just distant of your elbow toward your hand. Follow up in 6 months, sooner if you decide to make a small adjustment to your baclofen regimen as we discussed today. [email or web address] Not available 12/08/2023 14:41:48 06/07/2024 06/07/2024 IMPRESSION: Cerebral palsy with symmetric lower extremity cramping and arm shaking. Arm shakin-10-minute episodes, initially on right, subsequently bilateral, worsening before and after February 2022 cervical spine surgery. Lower extremity cramping: Initially with lower extremity shaking and left upper extremity shaking, all of which baclofen initially helped. Gait abnormality; l eft hand tingling. --June 07, 2024 reemergence of bothersome cramping i n her posterior calves. Continued 5-minute episodes of arm shaking ~ 8 times per day. Medications: From [facility]: baclofen From others: Linzess, citalopram, clonazepam 0.5 mg twice daily which she continues through her psychiatrist, simvastatin 20 mg 1 tablet daily, meloxicam 15 mg as needed: Rarely takes it lately, multivitamin and is no longer using as needed polyethylene glycol >>>>>>>>>>>>Sept ember 2023 We agreed on increase of baclofen for the posterior calf cramping. As the symptoms occur through the day and not at night, I suggest increasing the morning dose. We will go by 5 mg increments with a week in between to allow some equilibration by her body and so to try to reduce tiredness side effect. The calf cramping her bothers her more than the arm shaking so she chose the baclofen increase over restarting levetiracetam 250 mg twice daily which has helped arm shaking in the past PLAN Natalie Sierra onnell June 07, 2024 INCREASE BACLOFEN 10 mg tablets at morning dose: 2.5 tabs 10 AM , two tabs 10 PM, 1 week Three tabs 10 AM, two tabs 10 PM afterwards Baclofen may cause side effects of tiredness or feeling of weakness. If this happens, reduce back to your previous dose when you did not have side effects. PREVIOUSLY: Historically, you have reported tingling on the left lower arm and hand and you are again describing the sensation. You are now under the care of a neurosurgeon and a manager plumbing and I defer to them for the management of radicular symptoms. However, as you have significant spasticity on that side and can have intermittent tingling, I recommend that you continue with stretching as we had recommended in the past. We have decided that you will ask of explicitly if you would like us to address the radiating head pain. You have reported it would be difficult for you to go to physical in therapy in [place] for myofascial release which is something that you have not tried, especially as you are now live in [place]. For the tingling from time to time down your back of your left lower arm into your hand: Continue to stretch your hand and your fingers following the maneuver that you were shown in the past in the office several times a day and especially when that tingling occurs. Massage that muscle as showed you on the back of your forearm just distant of your elbow toward your hand. Follow up in 6 months, sooner if you need [email or web address] Not available 06/07/2024 15:14:39 12/06/2024 12/06/2024 IMPRESSION: Cerebral palsy with symmetric lower extremity cramping and arm shaking. Arm shakin-10-minute episodes, initially on right, subsequently bilateral, worsening before and after February 2022 cervical spine surgery. Lower extremity cramping: Initially with lower extremity shaking and left upper extremity shaking, all of which baclofen initially helped. Gait abnormality; l eft hand tingling. --June 07, 2024 reemergence of bothersome cramping i n her posterior calves. Continued 5-minute episodes of arm shaking ~ 8 times per day. --December 06, 2024 baclofen increase -> 30 mg twice a day: Calf tightness resolution; one fall /month, each without cane no injuries, counseled to use cane more. Declines physical therapy. >>>Medications December 06, 2024: From me: baclofen 30 mg twice daily From others, per piece of paper she carries: clonazepam 0.5 mg twice daily which she continues through her psychiatrist,col andrey 100mg bid, simvastatin 20 mg 1 tablet daily, Linzess, Pristiq 50 mg QD , multivitamin >>>>>>>>>>>>[facility] 2024 She is happy with her baclofen medication regimen. We will make no changes. >>>>>>>>>>>>Sept ember 2023 We agreed on increase of baclofen for the posterior calf cramping. As the symptoms occur through the day and not at night, I suggest increasing the morning dose. We will go by 5 mg increments with a week in between to allow some equilibration by her body and so to try to reduce tiredness side effect. The calf cramping her bothers her more than the arm shaking so she chose the baclofen increase over restarting levetiracetam 250 mg twice daily which has helped arm shaking in the past PLAN Natalie smith December 06, 2024 CONTINUE BACLOFEN 10 mg tablets: Three tabs 10 AM, two tabs 10 PM afterwards Baclofen may cause side effects of tiredness or feeling of weakness. If this happens, reduce back to your previous dose when you did not have side effects. PREVIOUSLY: Historically, you have reported tingling on the left lower arm and hand and you are again describing the sensation. You are now under the care of a neurosurgeon and a manager plumbing and I defer to them for the management of radicular symptoms. However, as you have significant spasticity on that side and can have intermittent tingling, I recommend that you continue with stretching as we had recommended in the past. We have decided that you will ask of explicitly if you would like us to address the radiating head pain. You have reported it would be difficult for you to go to physical in therapy in [place] for myofascial release which is something that you have not tried, especially as you are now live in [place]. For the tingling from time to time down your back of your left lower arm into your hand: Continue to stretch your hand and your fingers following the maneuver that you were shown in the past in the office several times a day and especially when that tingling occurs. Massage that muscle as showed you on the back of your forearm just distant of your elbow toward your hand. Follow up in 6 months, sooner if you need [email or web address] Not available 12/06/2024 14:36:41 06/20/2025 06/20/2025 IMPRESSION: Cerebral palsy with symmetric lower extremity cramping and arm shaking. Arm shakin-10-minute episodes, initially on right, subsequently bilateral, worsening before and after February 2022 cervical spine surgery. Lower extremity cramping: Initially with lower extremity shaking and left upper extremity shaking, all of which baclofen initially helped. Gait abnormality; l eft hand tingling. --June 07, 2024 reemergence of bothersome cramping i n her posterior calves. Continued 5-minute episodes of arm shaking ~ 8 times per day. --December 06, 2024 baclofen increase -> 30 mg twice a day: Calf tightness resolution; one fall /month, each without cane no injuries, counseled to use cane more. Declines physical therapy. --June 20, 2025 new rolling walker with a seat after more falls and episodes of not being able to move using her cane; no more falls with walker. >1 year of continuous tingling in her left parietal region >>>>>>>>>>>>Sept emb2024 She wonders why she has been worsening. She thought that cerebral palsy did not worsen. I explained that cerebral palsy relates to a static abnormality in the brain. However, the brain still has its normal evolution with aging. This normal brain evolution with aging combined with cerebral palsy abnormality results and worsening of her symptoms. There will continue to be worsening of her symptoms with continued normal aging. She has home exercises from physical therapy and continuing with them could slow this process. But the process cannot be stopped completely. She understands, she says. Muscular exam reveals trigger point in the left levator scapula and posterior shoulder with referral changing the otherwise continuous tingling in her left parietal region. I explained that this tingling does not relate to a concerning abnormality in her brain. It is a muscle tightness. She has chronic muscle tightness from cerebral palsy. It might have been worsened by changing loads on her muscles after her neck surgery which might explain why the tingling emerged after her neck surgery. I offered physical therapy. She declined. However, with my explanation, she is less concerned that the tingling is dangerous. The tightness does not bother her enough to consider an increase in baclofen or an additional medication to help her spasticity. She understands that any such intervention could make her more tired and she feels tired already. It could also make her more weak and thus reduce her endurance further with extended walking. We agreed to make no changes in medication. >>>Medications December 06, 2024: From me: baclofen 30 mg twice daily From others, per piece of paper she carries: clonazepam 0.5 mg twice daily which she continues through her psychiatrist,col andrey 100mg bid, simvastatin 20 mg 1 tablet daily, Linzess, Pristiq 50 mg QD , multivitamin >>>>>>>>>>>>[facility] 2024 She is happy with her baclofen medication regimen. We will make no changes. >>>>>>>>>>>>Sept emb2023 We agreed on increase of baclofen for the posterior calf cramping. As the symptoms occur through the day and not at night, I suggest increasing the morning dose. We will go by 5 mg increments with a week in between to allow some equilibration by her body and so to try to reduce tiredness side effect. The calf cramping her bothers her more than the arm shaking so she chose the baclofen increase over restarting levetiracetam 250 mg twice daily which has helped arm shaking in the past PLAN Natalie smith June 20, 2025 CONTINUE BACLOFEN 10 mg tablets: Three tabs 10 AM, 3 tabs 10 PM afterwards Baclofen may cause side effects of tiredness or feeling of weakness. If this happens, reduce back to your previous dose when you did not have side effects. PREVIOUSLY: Historically, you have reported tingling on the left lower arm and hand and you are again describing the sensation. You are now under the care of a neurosurgeon and a manager plumbing and I defer to them for the management of radicular symptoms. However, as you have significant spasticity on that side and can have intermittent tingling, I recommend that you continue with stretching as we had recommended in the past. We have decided that you will ask of explicitly if you would like us to address the radiating head pain. You have reported it would be difficult for you to go to physical in therapy in [place] for myofascial release which is something that you have not tried, especially as you are now live in [place]. For the tingling from time to time down your back of your left lower arm into your hand: Continue to stretch your hand and your fingers following the maneuver that you were shown in the past in the office several times a day and especially when that tingling occurs. Massage that muscle as showed you on the back of your forearm just distant of your elbow toward your hand. Follow up in 6 months, sooner if you need mrossen Not available 06/20/2025 14:43:32 Plan of Treatment Reminders Order Date Submit Date Provider Last Modified By Organization Details Last Modified Time Details Appointments FOLLOW UP EXT 2025 02:30P Alber Campoverde MD PhD Not available Not available Not available Lab None recorded. Referral None recorded. Procedures None recorded. Surgeries None recorded. Imaging None recorded. Medication Orders baclofen 10 mg tablet 2024 025 [facility] #[id number], [address], [place], [id number], 06/20/2025 14:43:04 baclofen 10 mg tablet 2024 025 [id number], [address], [place], [id number], 12/06/2024 14:26:17 baclofen 10 mg tablet 2023 024 [id number], [address], [place], [id number], 06/07/2024 14:55:48 baclofen 10 mg tablet 2023 024 [id number], [address], [place], [id number], 12/08/2023 14:05:50 baclofen 10 mg tablet 2022 023 [id number], [address], [place], [id number], 09/08/2023 14:17:48 Patient TargetsNo targets recorded. Patient Instructions Encounter Date Encounter Id Patient Instructions Last Modified By Organization Details Last Modified Time 09/08/2023 [id number] PREVIOUS DISCUSSIONS January 27, 2022: She started levetiracetam 500 mg 0.5 tablets after her December 25, 2022 follow-up for myoclonic jerks. She believes that it is helping some and would like to continue the titration. She had stopped when she had nausea and vomiting that she thought was a side effect turned out to be a stomach flu and so she subsequently resumed the trial of the 250 mg nightly dose. She would like to go ahead with the titration to 250 mg twice daily as we discussed at her last visit on December 25. We will plan a 1 month follow-up to see how she does on levetiracetam 500 mg 0.5 tablet twice daily. December 12 2021: She has subsequently increased her baclofen to 10 mg, 2 tablets in the morning and 2 tablets at night for bed (20mg twice daily). -Unfortunately, is having increased difficulty with gait and she has sustained another fall and fractured what appears to be her left fourth and fifth metacarpal. She has bought herself a cane. She had a similar fracture to the thumb on the left from a fall in the past. -At her last visit in September 12, 2021, we discussed adding a midday dose of baclofen which she elected to do but subsequently decided not to. She would be interested in a retrial. -Additionally, we discussed having her see physical therapy for balance and gait training and how to use her cane properly. She was reluctant that she has been to physical therapy in the past but this was before she was using the cane. -She is also had right shoulder injection from her orthopedist today and will be having an MRI of her cervical spine with them. I asked her to bring us a copy of the report once she has this done. - You reported that you will be getting an MRI of your cervical spine with your orthopedist which may give us some additional information: Please bring a copy of the report to your next appointment From 07/17/2020 --We will get physical therapy to consider cane or walker. (As of 09/12/2021, she did go to physical therapy and work on gait training. Has an assistive device outside (?walking stick). 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 This might be her shakiness, I am not clear from her description. Keppra does not have benefit for tightness. She has history of depression and Keppra might worsen this. Her boyfriend adds that she has felt depressed for a while and she does not argue. To review from 2016 There had been myofascial syndrome associated with her right upper extremity symptoms. She does not remember physical therapy intervention, I will not move in that direction again today. I had suggested clonazepam in December 2015. She is on clonazepam as of November 2018 for anxiety from psychiatry. I defer to psychiatry for any continued management of clonazepam for any of her presenting symptomatology. I had suggested blood work for metabolic etiology of muscular based pain in December 2015. She had never followed up. Vitamin D and magnesium were low. I am not clear whether these were addressed by primary care. I will hold off on repeat blood work. I defer to primary care for any further supplementation of vitamin D or magnesium that might be needed at this point, or for repetition of any blood work that I ordered January 17, 2016. BILLING: Discussion across issues of diagnoses and management and same day associated chart review and management greater than 50% greater than 45 minutes herson Not available 09/08/2023 16:18:13 12/08/2023 [id number] PREVIOUS DISCUSSIONS September 08, 2023: She reports that spasms are about the same and gets tightness when walking, sometimes with difficulty with spasm when trying to go up a curb. She continues baclofen 20 mg morning upon awakening and 20 mg at bedtime. She has previously had a trial of the addition of 10 mg at 4 PM but had excessive sleepiness. She has not noticed a particular time of day that she has worsening although she does not have any spasms at night. I suggested she could have some flexibility in the timing of her baclofen but without changing her 24-hour dose, but first, suggested she evaluate the timing for 2 or 3 days of the emergence of any spasms or tightness. Since she is sleepy in the day, I suggested a trial of decreasing the morning baclofen to 1-1/2 tablets, 15 mg and half a tablet at 4:00 in the afternoon for a few days and if no worsening in the morning symptoms and no improvement in the afternoon symptoms, she could continue to adjust it to 10 mg in the morning, 10 mg at 4 PM and continue 20 mg at night. Alternatively, if she has reemergence of worsening symptoms by reducing the morning baclofen, she could instead reduce the nighttime dose and using the same strategy. However, I have advised her not to change her 24-hour dose and cautioned her regarding the risk for withdrawal seizures (she has experienced increased spasms when late for refilling her baclofen in the past). I am not going to renew levetiracetam for the time being as she has not been taking it although she did report that it was helpful for the arm shaking in February 2023 at 250 mg nightly. (Spasms/spasticity bothers her more than the shaking ) we can reconsider at in the future. She did not remember why she did not refill it and continue it. March 04, 2023: She has improvement of shaking limbs with very little breakthrough with the addition of levetiracetam 250 mg nightly. It has not been necessary to add the morning dose. Therefore, we decide on continuing nighttime only with the option of increasing it in the future if necessary. I have changed her prescription to reflect 500 mg 1/2 tablet nightly. She continues baclofen 10 mg, 2 tablets every morning and 2 tablets every night. She has been having hip pain on the left ever since her surgical surgery, she has had injections for this with her manager plumbing which have not been helping. Examination notable for active trigger point at the left skull base and ongoing spastic gait. As her radiating head pain is addressed by physiatry, we will not be managing it unless she explicitly asks us to. She understands. We decide on a 6-month follow-up. January 27, 2022: She started levetiracetam 500 mg 0.5 tablets after her December 25, 2022 follow-up for myoclonic jerks. She believes that it is helping some and would like to continue the titration. She had stopped when she had nausea and vomiting that she thought was a side effect turned out to be a stomach flu and so she subsequently resumed the trial of the 250 mg nightly dose. She would like to go ahead with the titration to 250 mg twice daily as we discussed at her last visit on December 25. We will plan a 1 month follow-up to see how she does on levetiracetam 500 mg 0.5 tablet twice daily. December 12 2021: She has subsequently increased her baclofen to 10 mg, 2 tablets in the morning and 2 tablets at night for bed (20mg twice daily). -Unfortunately, is having increased difficulty with gait and she has sustained another fall and fractured what appears to be her left fourth and fifth metacarpal. She has bought herself a cane. She had a similar fracture to the thumb on the left from a fall in the past. -At her last visit in September 12, 2021, we discussed adding a midday dose of baclofen which she elected to do but subsequently decided not to. She would be interested in a retrial. -Additionally, we discussed having her see physical therapy for balance and gait training and how to use her cane properly. She was reluctant that she has been to physical therapy in the past but this was before she was using the cane. -She is also had right shoulder injection from her orthopedist today and will be having an MRI of her cervical spine with them. I asked her to bring us a copy of the report once she has this done. - You reported that you will be getting an MRI of your cervical spine with your orthopedist which may give us some additional information: Please bring a copy of the report to your next appointment REVIEW of December 25, 2022 rationale for initiating levetiracetam: When she shows me her t remor , it looks like a bit of a jerking motion on the left with flexion at the elbow. These episodes last for 5 to 10 minutes and are now spreading to the right side without any change in consciousness. It occurred before she had cervical spine surgery and may have worsened a bit afterwards. This is likely progression of her cerebral palsy. She did not tolerate an increase afternoon dose of baclofen when she was given a trial in November 2021. Therefore, we will give her a trial of levetiracetam beginning with a low-dose to see how she tolerates it. -She is working with neurosurgery and physiatry for radicular pain in the left arm. We did not address the constant tingling that she is experiencing on the left side of the head which started after having cervical spine surgery. -She is describing worsening of gait but has been to physical therapy in the past and did not gain much from it. She is not using her cane today. From 07/17/2020 --We will get physical therapy to consider cane or walker. (As of 09/12/2021, she did go to physical therapy and work on gait training. Has an assistive device outside (?walking stick). 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 This might be her shakiness, I am not clear from her description. Keppra does not have benefit for tightness. She has history of depression and Keppra might worsen this. Her boyfriend adds that she has felt depressed for a while and she does not argue. To review from 2016 There had been myofascial syndrome associated with her right upper extremity symptoms. She does not remember physical therapy intervention, I will not move in that direction again today. I had suggested clonazepam in December 2015. She is on clonazepam as of November 2018 for anxiety from psychiatry. I defer to psychiatry for any continued management of clonazepam for any of her presenting symptomatology. I had suggested blood work for metabolic etiology of muscular based pain in December 2015. She had never followed up. Vitamin D and magnesium were low. I am not clear whether these were addressed by primary care. I will hold off on repeat blood work. I defer to primary care for any further supplementation of vitamin D or magnesium that might be needed at this point, or for repetition of any blood work that I ordered January 17, 2016. BILLING: Discussion across issues of diagnoses and management and same day associated chart review and management greater than 50% greater than 45 minutes herson Not available 12/08/2023 14:36:10 06/07/2024 [id number] PREVIOUS MEDICATIONS Levetiracetam 500 mg, 0.5 tablets nightly, decreased from twice daily February 2023, did not continue PREVIOUS DISCUSSIONS >>>>>>>>>>>>December 08, 2023: She has added 10 mg of baclofen at 4 PM which has been helping with spasticity while ambulating. She has continued 20 mg in the morning and 20 at night. We had tried this regimen previously but she had excessive sleepiness and therefore at our most recent discussion, we discussed shifting the timing of the 40 mg per 24 hours. Presently, she has some sleepiness but does not feel that it is changed and wishes to continue taking 50 mg per 24 hours (she now tells me that on some afternoon she does not take it). She has not run out of her medication and has just refilled it. I will renew it with up to 5 tablets/day. I have counseled her that it is okay to take one 10 mg tablet as needed but she should not stop the baclofen abruptly. Additionally, she is frequently tired in the morning upon awakening and she does not have any spasms at night. I told her that it was okay to try taking 1.5 10mg baclofen tablets at night to see if she has any improvement in the morning. Or, if she prefers to reduce her morning baclofen to 1 and half tablets but I have asked her not to change more than half a tablet at once (other than continuing to take the 4 PM 10 mg as needed) while she is making any other medication changes. I offered a retrial of levetiracetam for the episodes of shaking and she has previously reported a good response at 250 mg nightly without further increase. She declines for now. September 08, 2023: She reports that spasms are about the same and gets tightness when walking, sometimes with difficulty with spasm when trying to go up a curb. She continues baclofen 20 mg morning upon awakening and 20 mg at bedtime. She has previously had a trial of the addition of 10 mg at 4 PM but had excessive sleepiness. She has not noticed a particular time of day that she has worsening although she does not have any spasms at night. I suggested she could have some flexibility in the timing of her baclofen but without changing her 24-hour dose, but first, suggested she evaluate the timing for 2 or 3 days of the emergence of any spasms or tightness. Since she is sleepy in the day, I suggested a trial of decreasing the morning baclofen to 1-1/2 tablets, 15 mg and half a tablet at 4:00 in the afternoon for a few days and if no worsening in the morning symptoms and no improvement in the afternoon symptoms, she could continue to adjust it to 10 mg in the morning, 10 mg at 4 PM and continue 20 mg at night. Alternatively, if she has reemergence of worsening symptoms by reducing the morning baclofen, she could instead reduce the nighttime dose and using the same strategy. However, I have advised her not to change her 24-hour dose and cautioned her regarding the risk for withdrawal seizures (she has experienced increased spasms when late for refilling her baclofen in the past). I am not going to renew levetiracetam for the time being as she has not been taking it although she did report that it was helpful for the arm shaking in February 2023 at 250 mg nightly. (Spasms/spasticity bothers her more than the shaking ) we can reconsider at in the future. She did not remember why she did not refill it and continue it. March 04, 2023: She has improvement of shaking limbs with very little breakthrough with the addition of levetiracetam 250 mg nightly. It has not been necessary to add the morning dose. Therefore, we decide on continuing nighttime only with the option of increasing it in the future if necessary. I have changed her prescription to reflect 500 mg 1/2 tablet nightly. She continues baclofen 10 mg, 2 tablets every morning and 2 tablets every night. She has been having hip pain on the left ever since her surgical surgery, she has had injections for this with her manager plumbing which have not been helping. Examination notable for active trigger point at the left skull base and ongoing spastic gait. As her radiating head pain is addressed by physiatry, we will not be managing it unless she explicitly asks us to. She understands. We decide on a 6-month follow-up. January 27, 2022: She started levetiracetam 500 mg 0.5 tablets after her December 25, 2022 follow-up for myoclonic jerks. She believes that it is helping some and would like to continue the titration. She had stopped when she had nausea and vomiting that she thought was a side effect turned out to be a stomach flu and so she subsequently resumed the trial of the 250 mg nightly dose. She would like to go ahead with the titration to 250 mg twice daily as we discussed at her last visit on December 25. We will plan a 1 month follow-up to see how she does on levetiracetam 500 mg 0.5 tablet twice daily. December 12 2021: She has subsequently increased her baclofen to 10 mg, 2 tablets in the morning and 2 tablets at night for bed (20mg twice daily). -Unfortunately, is having increased difficulty with gait and she has sustained another fall and fractured what appears to be her left fourth and fifth metacarpal. She has bought herself a cane. She had a similar fracture to the thumb on the left from a fall in the past. -At her last visit in September 12, 2021, we discussed adding a midday dose of baclofen which she elected to do but subsequently decided not to. She would be interested in a retrial. -Additionally, we discussed having her see physical therapy for balance and gait training and how to use her cane properly. She was reluctant that she has been to physical therapy in the past but this was before she was using the cane. -She is also had right shoulder injection from her orthopedist today and will be having an MRI of her cervical spine with them. I asked her to bring us a copy of the report once she has this done. - You reported that you will be getting an MRI of your cervical spine with your orthopedist which may give us some additional information: Please bring a copy of the report to your next appointment REVIEW of December 25, 2022 rationale for initiating levetiracetam: When she shows me her t remor , it looks like a bit of a jerking motion on the left with flexion at the elbow. These episodes last for 5 to 10 minutes and are now spreading to the right side without any change in consciousness. It occurred before she had cervical spine surgery and may have worsened a bit afterwards. This is likely progression of her cerebral palsy. She did not tolerate an increase afternoon dose of baclofen when she was given a trial in November 2021. Therefore, we will give her a trial of levetiracetam beginning with a low-dose to see how she tolerates it. -She is working with neurosurgery and physiatry for radicular pain in the left arm. We did not address the constant tingling that she is experiencing on the left side of the head which started after having cervical spine surgery. -She is describing worsening of gait but has been to physical therapy in the past and did not gain much from it. She is not using her cane today. From 07/17/2020 --We will get physical therapy to consider cane or walker. (As of 09/12/2021, she did go to physical therapy and work on gait training. Has an assistive device outside (?walking stick). 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 This might be her shakiness, I am not clear from her description. Keppra does not have benefit for tightness. She has history of depression and Keppra might worsen this. Her boyfriend adds that she has felt depressed for a while and she does not argue. To review from 2016 There had been myofascial syndrome associated with her right upper extremity symptoms. She does not remember physical therapy intervention, I will not move in that direction again today. I had suggested clonazepam in December 2015. She is on clonazepam as of November 2018 for anxiety from psychiatry. I defer to psychiatry for any continued management of clonazepam for any of her presenting symptomatology. I had suggested blood work for metabolic etiology of muscular based pain in December 2015. She had never followed up. Vitamin D and magnesium were low. I am not clear whether these were addressed by primary care. I will hold off on repeat blood work. I defer to primary care for any further supplementation of vitamin D or magnesium that might be needed at this point, or for repetition of any blood work that I ordered January 17, 2016. BILLING: Discussion across issues of diagnoses and management and same day associated chart review and management greater than 50% greater than 40 minutes garyn Not available 06/07/2024 15:14:14 12/06/2024 [id number] PREVIOUS MEDICATIONS Levetiracetam 500 mg, 0.5 tablets nightly, decreased from twice daily February 2023, did not continue PREVIOUS DISCUSSIONS >>>>>>>>>>>>December 08, 2023: She has added 10 mg of baclofen at 4 PM which has been helping with spasticity while ambulating. She has continued 20 mg in the morning and 20 at night. We had tried this regimen previously but she had excessive sleepiness and therefore at our most recent discussion, we discussed shifting the timing of the 40 mg per 24 hours. Presently, she has some sleepiness but does not feel that it is changed and wishes to continue taking 50 mg per 24 hours (she now tells me that on some afternoon she does not take it). She has not run out of her medication and has just refilled it. I will renew it with up to 5 tablets/day. I have counseled her that it is okay to take one 10 mg tablet as needed but she should not stop the baclofen abruptly. Additionally, she is frequently tired in the morning upon awakening and she does not have any spasms at night. I told her that it was okay to try taking 1.5 10mg baclofen tablets at night to see if she has any improvement in the morning. Or, if she prefers to reduce her morning baclofen to 1 and half tablets but I have asked her not to change more than half a tablet at once (other than continuing to take the 4 PM 10 mg as needed) while she is making any other medication changes. I offered a retrial of levetiracetam for the episodes of shaking and she has previously reported a good response at 250 mg nightly without further increase. She declines for now. September 08, 2023: She reports that spasms are about the same and gets tightness when walking, sometimes with difficulty with spasm when trying to go up a curb. She continues baclofen 20 mg morning upon awakening and 20 mg at bedtime. She has previously had a trial of the addition of 10 mg at 4 PM but had excessive sleepiness. She has not noticed a particular time of day that she has worsening although she does not have any spasms at night. I suggested she could have some flexibility in the timing of her baclofen but without changing her 24-hour dose, but first, suggested she evaluate the timing for 2 or 3 days of the emergence of any spasms or tightness. Since she is sleepy in the day, I suggested a trial of decreasing the morning baclofen to 1-1/2 tablets, 15 mg and half a tablet at 4:00 in the afternoon for a few days and if no worsening in the morning symptoms and no improvement in the afternoon symptoms, she could continue to adjust it to 10 mg in the morning, 10 mg at 4 PM and continue 20 mg at night. Alternatively, if she has reemergence of worsening symptoms by reducing the morning baclofen, she could instead reduce the nighttime dose and using the same strategy. However, I have advised her not to change her 24-hour dose and cautioned her regarding the risk for withdrawal seizures (she has experienced increased spasms when late for refilling her baclofen in the past). I am not going to renew levetiracetam for the time being as she has not been taking it although she did report that it was helpful for the arm shaking in February 2023 at 250 mg nightly. (Spasms/spasticity bothers her more than the shaking ) we can reconsider at in the future. She did not remember why she did not refill it and continue it. March 04, 2023: She has improvement of shaking limbs with very little breakthrough with the addition of levetiracetam 250 mg nightly. It has not been necessary to add the morning dose. Therefore, we decide on continuing nighttime only with the option of increasing it in the future if necessary. I have changed her prescription to reflect 500 mg 1/2 tablet nightly. She continues baclofen 10 mg, 2 tablets every morning and 2 tablets every night. She has been having hip pain on the left ever since her surgical surgery, she has had injections for this with her manager plumbing which have not been helping. Examination notable for active trigger point at the left skull base and ongoing spastic gait. As her radiating head pain is addressed by physiatry, we will not be managing it unless she explicitly asks us to. She understands. We decide on a 6-month follow-up. January 27, 2022: She started levetiracetam 500 mg 0.5 tablets after her December 25, 2022 follow-up for myoclonic jerks. She believes that it is helping some and would like to continue the titration. She had stopped when she had nausea and vomiting that she thought was a side effect turned out to be a stomach flu and so she subsequently resumed the trial of the 250 mg nightly dose. She would like to go ahead with the titration to 250 mg twice daily as we discussed at her last visit on December 25. We will plan a 1 month follow-up to see how she does on levetiracetam 500 mg 0.5 tablet twice daily. December 12 2021: She has subsequently increased her baclofen to 10 mg, 2 tablets in the morning and 2 tablets at night for bed (20mg twice daily). -Unfortunately, is having increased difficulty with gait and she has sustained another fall and fractured what appears to be her left fourth and fifth metacarpal. She has bought herself a cane. She had a similar fracture to the thumb on the left from a fall in the past. -At her last visit in September 12, 2021, we discussed adding a midday dose of baclofen which she elected to do but subsequently decided not to. She would be interested in a retrial. -Additionally, we discussed having her see physical therapy for balance and gait training and how to use her cane properly. She was reluctant that she has been to physical therapy in the past but this was before she was using the cane. -She is also had right shoulder injection from her orthopedist today and will be having an MRI of her cervical spine with them. I asked her to bring us a copy of the report once she has this done. - You reported that you will be getting an MRI of your cervical spine with your orthopedist which may give us some additional information: Please bring a copy of the report to your next appointment REVIEW of December 25, 2022 rationale for initiating levetiracetam: When she shows me her t remor , it looks like a bit of a jerking motion on the left with flexion at the elbow. These episodes last for 5 to 10 minutes and are now spreading to the right side without any change in consciousness. It occurred before she had cervical spine surgery and may have worsened a bit afterwards. This is likely progression of her cerebral palsy. She did not tolerate an increase afternoon dose of baclofen when she was given a trial in November 2021. Therefore, we will give her a trial of levetiracetam beginning with a low-dose to see how she tolerates it. -She is working with neurosurgery and physiatry for radicular pain in the left arm. We did not address the constant tingling that she is experiencing on the left side of the head which started after having cervical spine surgery. -She is describing worsening of gait but has been to physical therapy in the past and did not gain much from it. She is not using her cane today. From 07/17/2020 --We will get physical therapy to consider cane or walker. (As of 09/12/2021, she did go to physical therapy and work on gait training. Has an assistive device outside (?walking stick). 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 This might be her shakiness, I am not clear from her description. Keppra does not have benefit for tightness. She has history of depression and Keppra might worsen this. Her boyfriend adds that she has felt depressed for a while and she does not argue. To review from 2016 There had been myofascial syndrome associated with her right upper extremity symptoms. She does not remember physical therapy intervention, I will not move in that direction again today. I had suggested clonazepam in December 2015. She is on clonazepam as of November 2018 for anxiety from psychiatry. I defer to psychiatry for any continued management of clonazepam for any of her presenting symptomatology. I had suggested blood work for metabolic etiology of muscular based pain in December 2015. She had never followed up. Vitamin D and magnesium were low. I am not clear whether these were addressed by primary care. I will hold off on repeat blood work. I defer to primary care for any further supplementation of vitamin D or magnesium that might be needed at this point, or for repetition of any blood work that I ordered January 17, 2016. BILLING: Chronic condition with exacerbation; prescription medication management martina Not available 12/06/2024 14:37:05 06/20/2025 [id number] PREVIOUS MEDICATIONS Levetiracetam 500 mg, 0.5 tablets nightly, decreased from twice daily February 2023, did not continue PREVIOUS DISCUSSIONS >>>>>>>>>>>>December 08, 2023: She has added 10 mg of baclofen at 4 PM which has been helping with spasticity while ambulating. She has continued 20 mg in the morning and 20 at night. We had tried this regimen previously but she had excessive sleepiness and therefore at our most recent discussion, we discussed shifting the timing of the 40 mg per 24 hours. Presently, she has some sleepiness but does not feel that it is changed and wishes to continue taking 50 mg per 24 hours (she now tells me that on some afternoon she does not take it). She has not run out of her medication and has just refilled it. I will renew it with up to 5 tablets/day. I have counseled her that it is okay to take one 10 mg tablet as needed but she should not stop the baclofen abruptly. Additionally, she is frequently tired in the morning upon awakening and she does not have any spasms at night. I told her that it was okay to try taking 1.5 10mg baclofen tablets at night to see if she has any improvement in the morning. Or, if she prefers to reduce her morning baclofen to 1 and half tablets but I have asked her not to change more than half a tablet at once (other than continuing to take the 4 PM 10 mg as needed) while she is making any other medication changes. I offered a retrial of levetiracetam for the episodes of shaking and she has previously reported a good response at 250 mg nightly without further increase. She declines for now. September 08, 2023: She reports that spasms are about the same and gets tightness when walking, sometimes with difficulty with spasm when trying to go up a curb. She continues baclofen 20 mg morning upon awakening and 20 mg at bedtime. She has previously had a trial of the addition of 10 mg at 4 PM but had excessive sleepiness. She has not noticed a particular time of day that she has worsening although she does not have any spasms at night. I suggested she could have some flexibility in the timing of her baclofen but without changing her 24-hour dose, but first, suggested she evaluate the timing for 2 or 3 days of the emergence of any spasms or tightness. Since she is sleepy in the day, I suggested a trial of decreasing the morning baclofen to 1-1/2 tablets, 15 mg and half a tablet at 4:00 in the afternoon for a few days and if no worsening in the morning symptoms and no improvement in the afternoon symptoms, she could continue to adjust it to 10 mg in the morning, 10 mg at 4 PM and continue 20 mg at night. Alternatively, if she has reemergence of worsening symptoms by reducing the morning baclofen, she could instead reduce the nighttime dose and using the same strategy. However, I have advised her not to change her 24-hour dose and cautioned her regarding the risk for withdrawal seizures (she has experienced increased spasms when late for refilling her baclofen in the past). I am not going to renew levetiracetam for the time being as she has not been taking it although she did report that it was helpful for the arm shaking in February 2023 at 250 mg nightly. (Spasms/spasticity bothers her more than the shaking ) we can reconsider at in the future. She did not remember why she did not refill it and continue it. March 04, 2023: She has improvement of shaking limbs with very little breakthrough with the addition of levetiracetam 250 mg nightly. It has not been necessary to add the morning dose. Therefore, we decide on continuing nighttime only with the option of increasing it in the future if necessary. I have changed her prescription to reflect 500 mg 1/2 tablet nightly. She continues baclofen 10 mg, 2 tablets every morning and 2 tablets every night. She has been having hip pain on the left ever since her surgical surgery, she has had injections for this with her manager plumbing which have not been helping. Examination notable for active trigger point at the left skull base and ongoing spastic gait. As her radiating head pain is addressed by physiatry, we will not be managing it unless she explicitly asks us to. She understands. We decide on a 6-month follow-up. January 27, 2022: She started levetiracetam 500 mg 0.5 tablets after her December 25, 2022 follow-up for myoclonic jerks. She believes that it is helping some and would like to continue the titration. She had stopped when she had nausea and vomiting that she thought was a side effect turned out to be a stomach flu and so she subsequently resumed the trial of the 250 mg nightly dose. She would like to go ahead with the titration to 250 mg twice daily as we discussed at her last visit on December 25. We will plan a 1 month follow-up to see how she does on levetiracetam 500 mg 0.5 tablet twice daily. December 12 2021: She has subsequently increased her baclofen to 10 mg, 2 tablets in the morning and 2 tablets at night for bed (20mg twice daily). -Unfortunately, is having increased difficulty with gait and she has sustained another fall and fractured what appears to be her left fourth and fifth metacarpal. She has bought herself a cane. She had a similar fracture to the thumb on the left from a fall in the past. -At her last visit in September 12, 2021, we discussed adding a midday dose of baclofen which she elected to do but subsequently decided not to. She would be interested in a retrial. -Additionally, we discussed having her see physical therapy for balance and gait training and how to use her cane properly. She was reluctant that she has been to physical therapy in the past but this was before she was using the cane. -She is also had right shoulder injection from her orthopedist today and will be having an MRI of her cervical spine with them. I asked her to bring us a copy of the report once she has this done. - You reported that you will be getting an MRI of your cervical spine with your orthopedist which may give us some additional information: Please bring a copy of the report to your next appointment REVIEW of December 25, 2022 rationale for initiating levetiracetam: When she shows me her t remor , it looks like a bit of a jerking motion on the left with flexion at the elbow. These episodes last for 5 to 10 minutes and are now spreading to the right side without any change in consciousness. It occurred before she had cervical spine surgery and may have worsened a bit afterwards. This is likely progression of her cerebral palsy. She did not tolerate an increase afternoon dose of baclofen when she was given a trial in November 2021. Therefore, we will give her a trial of levetiracetam beginning with a low-dose to see how she tolerates it. -She is working with neurosurgery and physiatry for radicular pain in the left arm. We did not address the constant tingling that she is experiencing on the left side of the head which started after having cervical spine surgery. -She is describing worsening of gait but has been to physical therapy in the past and did not gain much from it. She is not using her cane today. From 07/17/2020 --We will get physical therapy to consider cane or walker. (As of 09/12/2021, she did go to physical therapy and work on gait training. Has an assistive device outside (?walking stick). 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 This might be her shakiness, I am not clear from her description. Keppra does not have benefit for tightness. She has history of depression and Keppra might worsen this. Her boyfriend adds that she has felt depressed for a while and she does not argue. To review from 2016 There had been myofascial syndrome associated with her right upper extremity symptoms. She does not remember physical therapy intervention, I will not move in that direction again today. I had suggested clonazepam in December 2015. She is on clonazepam as of November 2018 for anxiety from psychiatry. I defer to psychiatry for any continued management of clonazepam for any of her presenting symptomatology. I had suggested blood work for metabolic etiology of muscular based pain in December 2015. She had never followed up. Vitamin D and magnesium were low. I am not clear whether these were addressed by primary care. I will hold off on repeat blood work. I defer to primary care for any further supplementation of vitamin D or magnesium that might be needed at this point, or for repetition of any blood work that I ordered January 17, 2016. BILLING: Chronic condition with exacerbation; prescription medication management mrossen Not available 06/20/2025 14:08:59 Reason for Referral None Reported. Problems Name Problem SNOMED Code Status Onset Date Resolution Date Notes Provider Name and Address Organization Details Recorded Time Cerebral palsy 967284846 Active 021 G80.9 [place] Monroy [facility] 11:23:26 Problem Notes None recorded. Procedures Surgical History Date Name Laterality Status Provider Name and Address Organization Details Recorded Time 06/20/2025 DATA REVIEW completed Jaime Campoverde MD [address] [place], [place] [address], [phone], [facility] 06/20/2025 14:08:58 12/06/2024 DATA REVIEW completed Jaime Campoverde MD [address] [place], [place] [address], [phone], [facility] 12/06/2024 14:18:27 06/07/2024 DATA REVIEW completed Jaime Campoverde MD [address] [place], [place] [address], [phone], [facility] 06/07/2024 14:42:48 12/08/2023 DATA REVIEW completed AMERICO QUIROZ PA-C [address] [place] [address], [place], [phone], [facility] 12/08/2023 13:50:57 09/08/2023 DATA REVIEW completed DAYDAY LEY [facility] B, [place], [phone], [facility] 09/08/2023 13:59:25 03/04/2023 DATA REVIEW completed DAYDAY LEY [facility] [place], [place], [phone], [facility] 03/04/2023 11:19:33 01/27/2023 DATA REVIEW completed DAYDAY LEY [facility] [place], [place], [phone], [facility] 01/27/2023 10:10:18 12/25/2022 DATA REVIEW completed DAYDAY LEY [facility] [place], [place], [phone], [facility] 12/25/2022 13:19:04 12/12/2021 DATA REVIEW completed DAYDAY LEY [facility] [place], [place], [phone], [facility] 12/12/2021 13:13:14 09/12/2021 DATA REVIEW completed DAYDAY LEY [facility] [place], [place], [phone], [facility] 09/12/2021 17:55:05 Imaging Results None recorded. Procedure Notes None recorded. Medical Equipment None Reported. Medications Name Sig Start Date Stop Date Status Note LastModified by Organization Details LastModified Time methocarbamo l 500 mg tablet TAKE 1 TABLET BY MOUTH FOUR TIMES DAILY FOR 10 DAYS active Not Available Not Available Not Available citalopram 40 mg tablet TAKE 1 TABLET BY MOUTH DAILY active Not Available Not Available Not Available simethicone 180 mg capsule TAKE 1 CAPSULE FOUR TIMES DAILY AFTER MEALS FOR 30 DAYS active Not Available Not Available No t Available levetiraceta m 500 mg tablet 0.5 tablets every night active Not Available Not Available Not Available meloxicam 15 mg tablet TAKE 1 TABLET BY MOUTH EVERY DAY active Not Available Not Available No t Available famotidine 40 mg tablet TAKE 1 TABLET BY MOUTH AT BEDTIME active Not Available Not Available No t Available prednisone 20 mg tablet TAKE 2 TABLETS BY MOUTH DAILY WITH FOOD FOR 5 DAYS active Not Available Not Available N ot Available clonazepam 0.5 mg tablet TAKE 1 TABLET BY MOUTH THREE TIMES DAILY. DISCONTINUE ALL VALIUM active Not Available Not Available N ot Available clonazepam 1 mg tablet TAKE 1/2 TABLET BY MOUTH TWICE DAILY NEEDED FOR ANXIETY active Not Available Not Available No t Available citalopram 20 mg tablet TAKE 1 TABLET BY MOUTH DAILY active Not Available Not Available Not Available lorazepam 0.5 mg tablet TAKE 1/2 TABLET BY MOUTH 1 TIME 30 MINUTES BEFORE MRI active Not Available Not Available N ot Available baclofen 10 mg tablet TAKE 3 TABLETS BY MOUTH EVERY 12 HOURS active Not Available Not Available No t Available pantoprazole 40 mg tablet,delay ed release TAKE 1 TABLET BY MOUTH DAILY active Not Available Not Available Not Available simvastatin 20 mg tablet TAKE 1 TABLET BY MOUTH AT BEDTIME active Not Available Not Available No t Available triamcinolon e acetonide 0.025 % topical ointment APPLY TOPICALLY TO THE AFFECTED AREA 3 TO 4 TIMES PER DAY active Not Available Not Available No t Available docusate sodium 100 mg capsule TAKE 1 CAPSULE BY MOUTH TWICE DAILY active Not Available Not Available No t Available polyethylene glycol 3350 17 gram/dose oral powder MIX AND DRINK 17 GRAMS BY MOUTH EVERY DAY NEEDED FOR CONSTIPATIO N. MAY REPEAT DOSE NEEDED active Not Available Not Available No t Available naproxen 500 mg tablet TAKE 1 TABLET BY MOUTH TWICE DAILY WITH MEALS FOR 10 DAYS active Not Available Not Available No t Available diazepam 5 mg tablet TAKE 1 TABLET BY MOUTH TWICE DAILY. DISCONTINUE ALL KLONOPIN AND CHANGE TO DIAZEPAM FOR MUSCLE RELAXATION active Not Available Not Available N ot Available amoxicillin 875 mg-potassium clavulanate 125 mg tablet TAKE 1 TABLET BY MOUTH TWICE DAILY FOR 10 DAYS active Not Available Not Available No t Available cyclobenzapr ine 5 mg tablet TAKE 1 TABLET BY MOUTH AT BEDTIME NEEDED FOR MUSCLE SPASMS FOR UP TO [address]. [address] DRIVE OR OPERATE HEAVY MACHINERY active Not Available Not Available No t Available nitrofuranto in monohydrate/ macrocrystal s 100 mg capsule active Not Available Not Available Not Available desvenlafaxi ne succinate ER 50 mg tablet,exten ded release 24 hr TAKE 1 TABLET BY MOUTH DAILY. DISCONTINUE CELEXA active Not Available Not Available No t Available Linzess 145 mcg capsule TAKE 1 CAPSULE BY MOUTH EVERY MORNING active Not Available Not Available No t Available Linzess 290 mcg capsule TAKE 1 CAPSULE BY MOUTH EVERY MORNING active Not Available Not Available No t Available Linzess 72 mcg capsule TAKE 1 CAPSULE BY MOUTH EVERY MORNING active Not Available Not Available No t Available BinaxNOW COVID-19 Ag Self Test kit TEST DIRECTED TODAY active Not Available Not Available No t Available Vitals None Recorded Social History None recorded. Functional Status None recorded. Mental Status None recorded. Family History Nothing Reported. Medical History No medical history recorded. Gynecological HistoryNo gynecological history recorded. Obstetrics History GPAL:G 0 P 0 0 0 0 Past Encounters Encounter ID Performer Location Encounter Start Date Encounter Closed Date Diagnosis/Indication Diagnosis SNOMED-CT Code Diagnosis ICD10 Code Diagnosis IMO Codes Diagnosis Note [id number] AMERICO QUIROZ PA-C [address] [place] [id number] 09/12/2021 12:51:37 10/10/2021 15:45:18 Cerebral palsy 654221842 G80.9 Abnormal gait 94972661 R 26.81 Myalgia/my ositis - multiple 258531779 M79.10 Dystonia 81913074 G24.2 [id number] [place] [id number] 12/12/2021 12:48:34 12/18/2021 12:22:57 Cerebral palsy 823114593 G80.9 Abnormal gait 22331282 R 26.81 Myalgia/my ositis - multiple 368794762 M79.10 Dystonia 84438730 G24.2 [id number] AMERICO QUIROZ PA-C [address] [place] [id number] 12/25/2022 12:58:58 01/06/2023 12:14:05 Cerebral palsy 826692930 G80.9 Abnormal gait 61432699 R 26.81 Myalgia/my ositis - multiple 738416935 M79.10 Dystonia 22918078 G24.2 [id number] [place] [id number] 01/27/2023 09:53:27 01/29/2023 08:08:37 Cerebral palsy 151604925 G80.9 Abnormal gait 60359820 R 26.81 Myalgia/my ositis - multiple 729097313 M79.10 Dystonia 27069293 G24.2 [id number] AMERICO QUIROZ PA-C [facility] [address] [place] [address] [place] [id number] 03/04/2023 11:05:27 03/09/2023 16:24:51 Cerebral palsy 017801151 G80.9 Abnormal gait 87656792 R 26.81 Myalgia/my ositis - multiple 840750247 M79.10 Dystonia 96598131 G24.2 [id number] AMERICO QUIROZ PA-C [facility] [address] [place] [address] [place] [id number] 09/08/2023 13:52:25 09/09/2023 11:55:25 Cerebral palsy 888961830 G80.9 Abnormal gait 89495558 R 26.81 Myalgia/my ositis - multiple 677810806 M79.10 Dystonia 98839234 G24.2 [id number] AMERICO QUIROZ PA-C [facility] [address] [place] [address] [place] [id number] 12/08/2023 13:34:27 12/09/2023 08:19:42 Cerebral palsy 351815775 G80.9 Abnormal gait 68631548 R 26.81 Myalgia/my ositis - multiple 859481851 M79.10 Dystonia 89388307 G24.2 [id number] Jaime Campoverde MD [facility] [address] [place] [address] [place] [id number] 06/07/2024 14:15:03 06/07/2024 15:26:00 Cerebral palsy 597270851 G80.9 Abnormal gait 18750875 R 26.81 Myalgia/my ositis - multiple 832057091 M79.10 Dystonia 65593650 G24.2 [id number] Jaime Campoverde MD [facility] [address] [place] [address] [place] [id number] 12/06/2024 13:53:33 12/06/2024 16:13:40 Cerebral palsy 089601692 G80.9 Abnormal gait 78438804 R 26.81 Myalgia/my ositis - multiple 323473222 M79.10 Dystonia 08069219 G24.2 [id number] Jaime Campoverde MD [facility] [address] [place] [address] [place] [id number] 06/20/2025 14:02:24 06/25/2025 10:24:00 Cerebral palsy 422316733 G80.9 Abnormal gait 78572006 R 26.81 Myalgia/my ositis - multiple [id number] M79.10 Dystonia [id number] G24.2 Health Concerns Section Related Observation LastModified by Organization Detai ls LastModified Time None Recorded Concern Status LastModified by Organization Details LastModified Time None Recorded Advance Directives Directive None Recorded Payers Insurance Date Sequence Insurance Name Policy Number Policy Jones Covered Member ID Jones Member ID Guarantor Name 06/20/2025 1 MEDICARE B-[place]: [facility] Natalie Hercules [id number] Natalie Weathers 06/20/2025 1 [facility] ([facility]) [facility] Natalie Weathers [id number] Natalie Weathers 06/20/2025 2 [facility] ([facility]) [facility] Natalie Weathers [id number] Natalie Weathers 07/14/2025 2 [place]: [facility] Natalie Weathers [id number] Natalie Weathers Notes Date Note Type Note Provider Name and Address Organization Details Recorded Time 09/08/2023 text/html Follow-up for shaking and discomfort of limbs. She had been seen initially January 14, 2016 for bilateral thigh tightness/discomfort while walking then more regularly starting November 2018.Past history includes cerebral palsy with history since she can remember of stuttering/word level perseveration, and problem with gait imbalance. She is unaccompanied. >>>>>>>>>>>>September 08 2023Since March 04, 2023 neurology follow-up, she reports that she is about the same. Sometimes her muscles get tight, especially when walking or when she is going up on a curb. She continues baclofen 10 mg tablets, 2 in the morning and 2 at bedtime. She has not particularly noticed if things are worse at a particular time of day. She is often sleepy. She has not noticed any spasms or tightness at nighttime. Shaking continues, particularly when she holds things, she shakes. I asked about levetiracetam. She does not remember it. She had settled on 250 mg nightly for myoclonic shaking at her last visit. She has not had any other medication changes or new diagnoses. >>>>>>>>>>>>March 04 2023Since January 27, 2023, she has resumed levetiracetam but is only taking one half of a 500 mg tablet at night and it is helping. She only rarely has a little bit of the shaking symptoms in her arm and its not very often. She feels that it is working. She has not had any other medication changes. She wishes to continue.Previously, she reported that she was having head pain on the left. I asked her about it. She had some injections in the shoulder and in the head from her manager plumbing, the most recent one was in December. I asked if this was a trigger point injection, she said it was a cortisone injection but it did not help. She has not done physical therapy for it and does not think that physical therapy would help on her head. >>>>>>>>>>>> January 27, 2023:After December 25, 2022 neurology follow-up at which time she had worsening tightening of her legs and difficulty walking (and also described an interval cervical surgery with some ongoing radiating pain toward the right shoulder, working with neurosurgery and physiatry) and increased episodes of tremors/shaking. She started levetiracetam 500 mg, 0.5 tablet nightly for myoclonic jerks. 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 She decided to retry it after she discovered there had been a stomach bug going around. She is currently on the levetiracetam 0.5 mg for a couple of weeks now and she is tolerating it without any side effects. No fatigability, no increased irritability. >>>>>>>>>>> December 25 2022Since December 12, 2021 neurology follow-up, she has been getting more fatigue and generalized tiredness. She had his cervical spine surgery last February for 2 discs which improved radiating pain into the right shoulder. (Dr Summers). But she does have some right-sided pain. And then, she began having tingling in a circular patch at the top of the head that never really goes away. It is constant. There is also pain radiating all the way down the left arm. She told her surgeon who said that she immediately needed another surgery for that side but she elected not to have a second surgery. The arm discomfort does not bother her as much as the tingling in the head. He also had an epidural steroid injection with physiatry (Dr Rodriguez) for the left arm symptoms but that did not help. She has noticed that her legs have been tightening up more and it is getting worse. It is hard to walk at times. She continues baclofen 20 mg twice daily at about 10:00 in the morning and 10 at night. I gave her a prescription for an extra 10 mg at 4:00 in the afternoon at her most recent follow-up just over a year ago. She says she tried it but she got too sleepy and reverted back to 10 mg twice daily. I sent her to physical therapy last November for balance and gait training with a cane. She does not quite remember if she went. She recalls that she went to physical therapy at some point it was not very helpful. She is not using a cane today. She also continues clonazepam 0.5 mg twice daily from psychiatry.She says that she has been getting a lot of shaking in her arms. She explains that she has cerebral palsy and that historically she has always had some t remor on the left, ever since she was a child. Now it is worse and it is affecting the right side.I have asked her to which of these 3 issues are bothering her the most and clarified that we have traditionally been treating the spasticity and we have not been treating the radiating neck pain. The numbness/tingling that is constant in the left side of the head is also new. All of these things are bothering her. We decided against any changes in the baclofen as she did not tolerate an increase the last time. I asked her to characterize the tremor more, it is occurring daily, and sometimes twice per day but is unpredictable and she cannot induce it. It is not at rest nor with intention. She shows me an example and was her left arm jerking and her elbow flexed and then says she cannot bend it out with the right side. Also, historically this is never occurred on the right side but now it is. Patient has no change in her mentation. She wonders if she needs an EEG. She had one when she was a child. The worsening started up 8 or 9 months ago but says that it started worsening before surgery. It was a little worse after surgery but clearly started beforehand. December 12, 2021 neurology follow-up reviewed:Since September 12, 2021 neurology follow-up encounter, and in fact just recently last week on December 03 while on vacation in [place], she fell while walking. She demonstrates how she fell forward on to her dorsal left hand and she says that there is a fracture in her hand into bones (she points towards the fourth and fifth metacarpals). This is currently braced but she says that surgery is planned. She feels that her gait is getting worse. She bought herself a cane. This seems to help. It is fine when she is walking on flat surfaces but when she is outside, she feels like her legs get all tight and her steps are short. She never did add the additional baclofen 0.5 of a 10 mg tablet at 4:00 in the afternoon. She continues to tablets in the morning when she awakens around 10 AM and 2 tablets at bedtime between 10 and 11 PM (20 mg twice daily). She does not ever forget the evening baclofen and denies any painful spasms. She has not had any change in bowel or bladder function.We had discussed in OT evaluation for head and neck spasms and tightness at her last visit but this never materialized. She went to see her orthopedic [employer], Savannah Martinez later this morning and had a right shoulder injection with steroid. They are also planning an MRI of the cervical spine.Viral 16th 2021-she has noticed some increased tightness in the left arm. She also has some tightness in the neck and shoulders.-Went to physical therapy for gait since her last visit although she states that she was not assessed for a cane or walker. She does have a device that she uses when she is outside of the house. She lives alone in a single level home. She feels that her gait instability is adequately controlled. She continues with home stretches for her extremities.-She has increased her baclofen which she has done on her own from 10 mg, 1 tablet in the morning and 1.5 in the evening to 2 in the morning and 2 at night before bedtime. Began doing this over a month ago into June. She sometimes has some tightening of the left arm and hand, especially at night. She has also noticed some gradual increased tremor of the left arm. She feels like there has been a slight gradual increase in the tightness on the left side over the last year as well as a slight gradual increase in tremor which she says she has always had. July 19, 2020 encounter is reviewed:After July 16, 2020 neurology follow-up encounter, just over a year ago, she continued on 10 mg every evening, 11 PM of baclofen until May 2020, about a month ago, when walking became increasingly stiff and hard. She increased to 1.5 tablets every 11 PM. This helped a little. She walks sufficiently well in the morning. But starting around noon time, walking becomes increasingly difficult. She has to hold onto somebody on some days. She does not use a cane or walker. She has fallen a couple times but she has not hurt herself as she had in January 2019 when she fell and broke her left thumb necessitating surgery..Initial history is reviewed from January 14, 2016 initial neurology consultation: In early September 2015, she began noticing tight spasm-like discomfort in her upper outer thighs while walking. This has slowly worsened. The feeling comes on several minutes after she starts walking. If she continues walking, the discomfort worsens. When she sits down, the discomfort resolves immediately. If she stands up, the same process reoccurs, again only if she walks for more than a few minutes. She has a long history of gait imbalance and has fallen occasionally throughout her life. She hadnt fallen recently until 2 falls on the ice in August. She did not hurt herself seriously and is not clear in her own mind that these falls related at all to the onset of her thigh discomfort with walking. She has no lower back pain. She has had a slowly worsening feeling of gait imbalance, especially with walking up and down stairs.In approximately 2013, she had onset of aching pain in her right upper arma distinctly different feeling than the tight spasming feeling that she has felt emerging more recently in her thighs. The right arm aching pain is most prominent starting just below her shoulder and extending to her elbow and is more mild but still noticeable in her right forearm. There is also aching pain at her right posterior shoulder/upper back. The right arm aching pain is mostly continuousunlike the intermittent thigh symptoms. The right arm aching pain is worse in the evening and often makes it difficult to sleep. Baclofen 10 mg has not helped for any of her symptoms. Botox in her right shoulder has not helped for her right upper quadrant symptoms. Jaime Campoverde MD [address] [place] [address], [phone], [facility] 09/08/2023 19:02:24 12/08/2023 text/html Follow-up for shaking and discomfort of limbs. She had been seen initially January 14, 2016 for bilateral thigh tightness/discomfort while walking then more regularly starting November 2018.Past history includes cerebral palsy with history since she can remember of stuttering/word level perseveration, and problem with gait imbalance. She is unaccompanied. >>>>>>>>>>>>December 08 2023Since September 08, 2023 neurology follow-up she has added 10 mg of baclofen at 4 PM to her 20 mg in the morning and 20 mg at bedtime. She says that this has been helping with the tightness that she feels in her legs in the daytime. She does have some tiredness but she does not feel that it is any different than baseline tiredness. She does wake up a bit sleepy at times.She does continue to have episodes of arm shaking that lasted about 5 minutes at a time. She does not wish to resume levetiracetam which helped previously.She has started working with NELLI Dowd , [facility] for a long history of IBS, having some constipation issues. She started taking Linzess/minute closed hide 72 mcg in the morning in September. >>>>>>>>>>>>September 08 2023Since March 04, 2023 neurology follow-up, she reports that she is about the same. Sometimes her muscles get tight, especially when walking or when she is going up on a curb. She continues baclofen 10 mg tablets, 2 in the morning and 2 at bedtime. She has not particularly noticed if things are worse at a particular time of day. She is often sleepy. She has not noticed any spasms or tightness at nighttime. Shaking continues, particularly when she holds things, she shakes. I asked about levetiracetam. She does not remember it. She had settled on 250 mg nightly for myoclonic shaking at her last visit. She has not had any other medication changes or new diagnoses. >>>>>>>>>>>>March 04 2023Since January 27, 2023, she has resumed levetiracetam but is only taking one half of a 500 mg tablet at night and it is helping. She only rarely has a little bit of the shaking symptoms in her arm and its not very often. She feels that it is working. She has not had any other medication changes. She wishes to continue.Previously, she reported that she was having head pain on the left. I asked her about it. She had some injections in the shoulder and in the head from her manager plumbing, the most recent one was in December. I asked if this was a trigger point injection, she said it was a cortisone injection but it did not help. She has not done physical therapy for it and does not think that physical therapy would help on her head. >>>>>>>>>>>> January 27, 2023:After December 25, 2022 neurology follow-up at which time she had worsening tightening of her legs and difficulty walking (and also described an interval cervical surgery with some ongoing radiating pain toward the right shoulder, working with neurosurgery and physiatry) and increased episodes of tremors/shaking. She started levetiracetam 500 mg, 0.5 tablet nightly for myoclonic jerks. 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 She decided to retry it after she discovered there had been a stomach bug going around. She is currently on the levetiracetam 0.5 mg for a couple of weeks now and she is tolerating it without any side effects. No fatigability, no increased irritability. >>>>>>>>>>> December 25 2022Since December 12, 2021 neurology follow-up, she has been getting more fatigue and generalized tiredness. She had his cervical spine surgery last February for 2 discs which improved radiating pain into the right shoulder. (Dr Summers). But she does have some right-sided pain. And then, she began having tingling in a circular patch at the top of the head that never really goes away. It is constant. There is also pain radiating all the way down the left arm. She told her surgeon who said that she immediately needed another surgery for that side but she elected not to have a second surgery. The arm discomfort does not bother her as much as the tingling in the head. He also had an epidural steroid injection with physiatry (Dr Rodriguez) for the left arm symptoms but that did not help. She has noticed that her legs have been tightening up more and it is getting worse. It is hard to walk at times. She continues baclofen 20 mg twice daily at about 10:00 in the morning and 10 at night. I gave her a prescription for an extra 10 mg at 4:00 in the afternoon at her most recent follow-up just over a year ago. She says she tried it but she got too sleepy and reverted back to 10 mg twice daily. I sent her to physical therapy last November for balance and gait training with a cane. She does not quite remember if she went. She recalls that she went to physical therapy at some point it was not very helpful. She is not using a cane today. She also continues clonazepam 0.5 mg twice daily from psychiatry.She says that she has been getting a lot of shaking in her arms. She explains that she has cerebral palsy and that historically she has always had some t remor on the left, ever since she was a child. Now it is worse and it is affecting the right side.I have asked her to which of these 3 issues are bothering her the most and clarified that we have traditionally been treating the spasticity and we have not been treating the radiating neck pain. The numbness/tingling that is constant in the left side of the head is also new. All of these things are bothering her. We decided against any changes in the baclofen as she did not tolerate an increase the last time. I asked her to characterize the tremor more, it is occurring daily, and sometimes twice per day but is unpredictable and she cannot induce it. It is not at rest nor with intention. She shows me an example and was her left arm jerking and her elbow flexed and then says she cannot bend it out with the right side. Also, historically this is never occurred on the right side but now it is. Patient has no change in her mentation. She wonders if she needs an EEG. She had one when she was a child. The worsening started up 8 or 9 months ago but says that it started worsening before surgery. It was a little worse after surgery but clearly started beforehand. December 12, 2021 neurology follow-up reviewed:Since September 12, 2021 neurology follow-up encounter, and in fact just recently last week on December 03 while on vacation in [place], she fell while walking. She demonstrates how she fell forward on to her dorsal left hand and she says that there is a fracture in her hand into bones (she points towards the fourth and fifth metacarpals). This is currently braced but she says that surgery is planned. She feels that her gait is getting worse. She bought herself a cane. This seems to help. It is fine when she is walking on flat surfaces but when she is outside, she feels like her legs get all tight and her steps are short. She never did add the additional baclofen 0.5 of a 10 mg tablet at 4:00 in the afternoon. She continues to tablets in the morning when she awakens around 10 AM and 2 tablets at bedtime between 10 and 11 PM (20 mg twice daily). She does not ever forget the evening baclofen and denies any painful spasms. She has not had any change in bowel or bladder function.We had discussed in OT evaluation for head and neck spasms and tightness at her last visit but this never materialized. She went to see her orthopedic [employer], Savannah Martinez later this morning and had a right shoulder injection with steroid. They are also planning an MRI of the cervical spine.September 12 2021-she has noticed some increased tightness in the left arm. She also has some tightness in the neck and shoulders.-Went to physical therapy for gait since her last visit although she states that she was not assessed for a cane or walker. She does have a device that she uses when she is outside of the house. She lives alone in a single level home. She feels that her gait instability is adequately controlled. She continues with home stretches for her extremities.-She has increased her baclofen which she has done on her own from 10 mg, 1 tablet in the morning and 1.5 in the evening to 2 in the morning and 2 at night before bedtime. Began doing this over a month ago into June. She sometimes has some tightening of the left arm and hand, especially at night. She has also noticed some gradual increased tremor of the left arm. She feels like there has been a slight gradual increase in the tightness on the left side over the last year as well as a slight gradual increase in tremor which she says she has always had. July 19, 2020 encounter is reviewed:After July 16, 2020 neurology follow-up encounter, just over a year ago, she continued on 10 mg every evening, 11 PM of baclofen until May 2020, about a month ago, when walking became increasingly stiff and hard. She increased to 1.5 tablets every 11 PM. This helped a little. She walks sufficiently well in the morning. But starting around noon time, walking becomes increasingly difficult. She has to hold onto somebody on some days. She does not use a cane or walker. She has fallen a couple times but she has not hurt herself as she had in January 2019 when she fell and broke her left thumb necessitating surgery..Initial history is reviewed from January 14, 2016 initial neurology consultation: In early September 2015, she began noticing tight spasm-like discomfort in her upper outer thighs while walking. This has slowly worsened. The feeling comes on several minutes after she starts walking. If she continues walking, the discomfort worsens. When she sits down, the discomfort resolves immediately. If she stands up, the same process reoccurs, again only if she walks for more than a few minutes. She has a long history of gait imbalance and has fallen occasionally throughout her life. She hadnt fallen recently until 2 falls on the ice in August. She did not hurt herself seriously and is not clear in her own mind that these falls related at all to the onset of her thigh discomfort with walking. She has no lower back pain. She has had a slowly worsening feeling of gait imbalance, especially with walking up and down stairs.In approximately 2013, she had onset of aching pain in her right upper arma distinctly different feeling than the tight spasming feeling that she has felt emerging more recently in her thighs. The right arm aching pain is most prominent starting just below her shoulder and extending to her elbow and is more mild but still noticeable in her right forearm. There is also aching pain at her right posterior shoulder/upper back. The right arm aching pain is mostly continuousunlike the intermittent thigh symptoms. The right arm aching pain is worse in the evening and often makes it difficult to sleep. Baclofen 10 mg has not helped for any of her symptoms. Botox in her right shoulder has not helped for her right upper quadrant symptoms. Jaime Campoverde MD [address] [place] [address], [phone], [facility] Neurology [facility] 12/08/2023 18:17:43 06/07/2024 text/html Follow-up for shaking and discomfort of limbs. She had been seen initially January 14, 2016 for bilateral thigh tightness/discomfort while walking then more regularly starting November 2018.Past history includes cerebral palsy with history since she can remember of stuttering/word level perseveration, and problem with gait imbalance. She is unaccompanied. >>>>>>>>>>>>June 07, 2024Since December 08 2023 Neurology follow-up encounter, tightness symmetrically in her calves has reemerged and is bothering her daily throughout the day. There is no predominance at any particular time of day. It does not wake her at night.She continues on the baclofen 20 mg every 10 AM, 20 mg every 10 PM, approximate waking and going to sleep times. She has not been taking the 4 PM 10 mg dose of baclofen and was not taking it in November 2023. When she has taken it in the past, it has not caused side effects. On the other hand, she has never noticed any additional benefit for an afternoon dosage. (Per chart, she did have side effects to the 4 PM dose.)She continues with her sleepiness that she has felt historically is her baseline sleepiness, unchanged from starting baclofen.She continues with ~5-minute episodes of arm shaking. This occurs about five times a day.She has had no medication changes from other healthcare providers. >>>>>>>>>>>>December 08 2023Since September 08, 2023 neurology follow-up she has added 10 mg of baclofen at 4 PM to her 20 mg in the morning and 20 mg at bedtime. She says that this has been helping with the tightness that she feels in her legs in the daytime. She does have some tiredness but she does not feel that it is any different than baseline tiredness. She does wake up a bit sleepy at times.She does continue to have episodes of arm shaking that lasted about 5 minutes at a time. She does not wish to resume levetiracetam which helped previously.She has started working with NELLI Dowd , [facility] for a long history of IBS, having some constipation issues. She started taking Linzess/minute closed hide 72 mcg in the morning in September. >>>>>>>>>>>>September 08 2023Since March 04, 2023 neurology follow-up, she reports that she is about the same. Sometimes her muscles get tight, especially when walking or when she is going up on a curb. She continues baclofen 10 mg tablets, 2 in the morning and 2 at bedtime. She has not particularly noticed if things are worse at a particular time of day. She is often sleepy. She has not noticed any spasms or tightness at nighttime. Shaking continues, particularly when she holds things, she shakes. I asked about levetiracetam. She does not remember it. She had settled on 250 mg nightly for myoclonic shaking at her last visit. She has not had any other medication changes or new diagnoses. >>>>>>>>>>>>March 04 2023Since January 27, 2023, she has resumed levetiracetam but is only taking one half of a 500 mg tablet at night and it is helping. She only rarely has a little bit of the shaking symptoms in her arm and its not very often. She feels that it is working. She has not had any other medication changes. She wishes to continue.Previously, she reported that she was having head pain on the left. I asked her about it. She had some injections in the shoulder and in the head from her manager plumbing, the most recent one was in December. I asked if this was a trigger point injection, she said it was a cortisone injection but it did not help. She has not done physical therapy for it and does not think that physical therapy would help on her head. >>>>>>>>>>>> January 27, 2023:After December 25, 2022 neurology follow-up at which time she had worsening tightening of her legs and difficulty walking (and also described an interval cervical surgery with some ongoing radiating pain toward the right shoulder, working with neurosurgery and physiatry) and increased episodes of tremors/shaking. She started levetiracetam 500 mg, 0.5 tablet nightly for myoclonic jerks. 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 She decided to retry it after she discovered there had been a stomach bug going around. She is currently on the levetiracetam 0.5 mg for a couple of weeks now and she is tolerating it without any side effects. No fatigability, no increased irritability. >>>>>>>>>>> December 25 2022Since December 12, 2021 neurology follow-up, she has been getting more fatigue and generalized tiredness. She had his cervical spine surgery last February for 2 discs which improved radiating pain into the right shoulder. (Dr Summers). But she does have some right-sided pain. And then, she began having tingling in a circular patch at the top of the head that never really goes away. It is constant. There is also pain radiating all the way down the left arm. She told her surgeon who said that she immediately needed another surgery for that side but she elected not to have a second surgery. The arm discomfort does not bother her as much as the tingling in the head. He also had an epidural steroid injection with physiatry (Dr Rodriguez) for the left arm symptoms but that did not help. She has noticed that her legs have been tightening up more and it is getting worse. It is hard to walk at times. She continues baclofen 20 mg twice daily at about 10:00 in the morning and 10 at night. I gave her a prescription for an extra 10 mg at 4:00 in the afternoon at her most recent follow-up just over a year ago. She says she tried it but she got too sleepy and reverted back to 10 mg twice daily. I sent her to physical therapy last November for balance and gait training with a cane. She does not quite remember if she went. She recalls that she went to physical therapy at some point it was not very helpful. She is not using a cane today. She also continues clonazepam 0.5 mg twice daily from psychiatry.She says that she has been getting a lot of shaking in her arms. She explains that she has cerebral palsy and that historically she has always had some t remor on the left, ever since she was a child. Now it is worse and it is affecting the right side.I have asked her to which of these 3 issues are bothering her the most and clarified that we have traditionally been treating the spasticity and we have not been treating the radiating neck pain. The numbness/tingling that is constant in the left side of the head is also new. All of these things are bothering her. We decided against any changes in the baclofen as she did not tolerate an increase the last time. I asked her to characterize the tremor more, it is occurring daily, and sometimes twice per day but is unpredictable and she cannot induce it. It is not at rest nor with intention. She shows me an example and was her left arm jerking and her elbow flexed and then says she cannot bend it out with the right side. Also, historically this is never occurred on the right side but now it is. Patient has no change in her mentation. She wonders if she needs an EEG. She had one when she was a child. The worsening started up 8 or 9 months ago but says that it started worsening before surgery. It was a little worse after surgery but clearly started beforehand. December 12, 2021 neurology follow-up reviewed:Since September 12, 2021 neurology follow-up encounter, and in fact just recently last week on December 03 while on vacation in [place], she fell while walking. She demonstrates how she fell forward on to her dorsal left hand and she says that there is a fracture in her hand into bones (she points towards the fourth and fifth metacarpals). This is currently braced but she says that surgery is planned. She feels that her gait is getting worse. She bought herself a cane. This seems to help. It is fine when she is walking on flat surfaces but when she is outside, she feels like her legs get all tight and her steps are short. She never did add the additional baclofen 0.5 of a 10 mg tablet at 4:00 in the afternoon. She continues to tablets in the morning when she awakens around 10 AM and 2 tablets at bedtime between 10 and 11 PM (20 mg twice daily). She does not ever forget the evening baclofen and denies any painful spasms. She has not had any change in bowel or bladder function.We had discussed in OT evaluation for head and neck spasms and tightness at her last visit but this never materialized. She went to see her orthopedic [employer], Savannah Martinez later this morning and had a right shoulder injection with steroid. They are also planning an MRI of the cervical spine.September 12 2021-she has noticed some increased tightness in the left arm. She also has some tightness in the neck and shoulders.-Went to physical therapy for gait since her last visit although she states that she was not assessed for a cane or walker. She does have a device that she uses when she is outside of the house. She lives alone in a single level home. She feels that her gait instability is adequately controlled. She continues with home stretches for her extremities.-She has increased her baclofen which she has done on her own from 10 mg, 1 tablet in the morning and 1.5 in the evening to 2 in the morning and 2 at night before bedtime. Began doing this over a month ago into June. She sometimes has some tightening of the left arm and hand, especially at night. She has also noticed some gradual increased tremor of the left arm. She feels like there has been a slight gradual increase in the tightness on the left side over the last year as well as a slight gradual increase in tremor which she says she has always had. July 19, 2020 encounter is reviewed:After July 16, 2020 neurology follow-up encounter, just over a year ago, she continued on 10 mg every evening, 11 PM of baclofen until May 2020, about a month ago, when walking became increasingly stiff and hard. She increased to 1.5 tablets every 11 PM. This helped a little. She walks sufficiently well in the morning. But starting around noon time, walking becomes increasingly difficult. She has to hold onto somebody on some days. She does not use a cane or walker. She has fallen a couple times but she has not hurt herself as she had in January 2019 when she fell and broke her left thumb necessitating surgery..Initial history is reviewed from January 14, 2016 initial neurology consultation: In early September 2015, she began noticing tight spasm-like discomfort in her upper outer thighs while walking. This has slowly worsened. The feeling comes on several minutes after she starts walking. If she continues walking, the discomfort worsens. When she sits down, the discomfort resolves immediately. If she stands up, the same process reoccurs, again only if she walks for more than a few minutes. She has a long history of gait imbalance and has fallen occasionally throughout her life. She hadnt fallen recently until 2 falls on the ice in August. She did not hurt herself seriously and is not clear in her own mind that these falls related at all to the onset of her thigh discomfort with walking. She has no lower back pain. She has had a slowly worsening feeling of gait imbalance, especially with walking up and down stairs.In approximately 2013, she had onset of aching pain in her right upper arma distinctly different feeling than the tight spasming feeling that she has felt emerging more recently in her thighs. The right arm aching pain is most prominent starting just below her shoulder and extending to her elbow and is more mild but still noticeable in her right forearm. There is also aching pain at her right posterior shoulder/upper back. The right arm aching pain is mostly continuousunlike the intermittent thigh symptoms. The right arm aching pain is worse in the evening and often makes it difficult to sleep. Baclofen 10 mg has not helped for any of her symptoms. Botox in her right shoulder has not helped for her right upper quadrant symptoms. Jaime Campoverde MD [address] [place] [address] [place], [id number], [facility] 06/07/2024 15:14:51 12/06/2024 text/html Follow-up for shaking and discomfort of limbs. She had been seen initially January 14, 2016 for bilateral thigh tightness/discomfort while walking then more regularly starting November 2018.Past history includes cerebral palsy with history since she can remember of stuttering/word level perseveration, and problem with gait imbalance. She is unaccompanied.>>>>>>>> >>>>December 06, 2024Since June 07, 2024 Neurology follow-up encounter, she has increased the baclofen 10 mg tablets, as we discussed, first by half a tablet each dose to 2.5 tablets every 10 AM/10 PM, and then a week later up to 3 tablets every 10 AM/10 PM. It has helped her calf tightness so that it no longer bothers her. She does not remember if the 2.5 tablet help partially but evidently it did not help enough that she went straight to the 3 tablet doses. She has had no side effects. In particular, there has been no increase in her baseline tiredness t his has been true when we started baclofen and with any increase.She still gets bilateral arm shaking about five times a week, often with the left side more pronounced. It does not bother her enough to consider change in medication.She has had falls, about once a month. Each was without a cane. She has had no serious injury. She uses her cane sometimes, for instance if there is a long walk or uneven ground. Some of the falls, however, I have been unexpected, such as with short distances in her house. I offered physical therapy reconsultation for brushing up on optimum gait posture and movement. She declines. I suggested she think about using her cane more.She has had no significant new or changing medical issues with other providers. >>>>>>>>>>>>June 07, 2024Since December 08 2023 Neurology follow-up encounter, tightness symmetrically in her calves has reemerged and is bothering her daily throughout the day. There is no predominance at any particular time of day. It does not wake her at night.She continues on the baclofen 20 mg every 10 AM, 20 mg every 10 PM, approximate waking and going to sleep times. She has not been taking the 4 PM 10 mg dose of baclofen and was not taking it in November 2023. When she has taken it in the past, it has not caused side effects. On the other hand, she has never noticed any additional benefit for an afternoon dosage. (Per chart, she did have side effects to the 4 PM dose.)She continues with her sleepiness that she has felt historically is her baseline sleepiness, unchanged from starting baclofen.She continues with ~5-minute episodes of arm shaking. This occurs about five times a day.She has had no medication changes from other healthcare providers. >>>>>>>>>>>>December 08 2023Since September 08, 2023 neurology follow-up she has added 10 mg of baclofen at 4 PM to her 20 mg in the morning and 20 mg at bedtime. She says that this has been helping with the tightness that she feels in her legs in the daytime. She does have some tiredness but she does not feel that it is any different than baseline tiredness. She does wake up a bit sleepy at times.She does continue to have episodes of arm shaking that lasted about 5 minutes at a time. She does not wish to resume levetiracetam which helped previously.She has started working with NELLI Dowd , [facility] for a long history of IBS, having some constipation issues. She started taking Linzess/minute closed hide 72 mcg in the morning in September. >>>>>>>>>>>>September 08 2023Since March 04, 2023 neurology follow-up, she reports that she is about the same. Sometimes her muscles get tight, especially when walking or when she is going up on a curb. She continues baclofen 10 mg tablets, 2 in the morning and 2 at bedtime. She has not particularly noticed if things are worse at a particular time of day. She is often sleepy. She has not noticed any spasms or tightness at nighttime. Shaking continues, particularly when she holds things, she shakes. I asked about levetiracetam. She does not remember it. She had settled on 250 mg nightly for myoclonic shaking at her last visit. She has not had any other medication changes or new diagnoses. >>>>>>>>>>>>March 04 2023Since January 27, 2023, she has resumed levetiracetam but is only taking one half of a 500 mg tablet at night and it is helping. She only rarely has a little bit of the shaking symptoms in her arm and its not very often. She feels that it is working. She has not had any other medication changes. She wishes to continue.Previously, she reported that she was having head pain on the left. I asked her about it. She had some injections in the shoulder and in the head from her manager plumbing, the most recent one was in December. I asked if this was a trigger point injection, she said it was a cortisone injection but it did not help. She has not done physical therapy for it and does not think that physical therapy would help on her head. >>>>>>>>>>>> January 27, 2023:After December 25, 2022 neurology follow-up at which time she had worsening tightening of her legs and difficulty walking (and also described an interval cervical surgery with some ongoing radiating pain toward the right shoulder, working with neurosurgery and physiatry) and increased episodes of tremors/shaking. She started levetiracetam 500 mg, 0.5 tablet nightly for myoclonic jerks. 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 She decided to retry it after she discovered there had been a stomach bug going around. She is currently on the levetiracetam 0.5 mg for a couple of weeks now and she is tolerating it without any side effects. No fatigability, no increased irritability. >>>>>>>>>>> December 25 2022Since December 12, 2021 neurology follow-up, she has been getting more fatigue and generalized tiredness. She had his cervical spine surgery last February for 2 discs which improved radiating pain into the right shoulder. (Dr Summers). But she does have some right-sided pain. And then, she began having tingling in a circular patch at the top of the head that never really goes away. It is constant. There is also pain radiating all the way down the left arm. She told her surgeon who said that she immediately needed another surgery for that side but she elected not to have a second surgery. The arm discomfort does not bother her as much as the tingling in the head. He also had an epidural steroid injection with physiatry (Dr Rodriguez) for the left arm symptoms but that did not help. She has noticed that her legs have been tightening up more and it is getting worse. It is hard to walk at times. She continues baclofen 20 mg twice daily at about 10:00 in the morning and 10 at night. I gave her a prescription for an extra 10 mg at 4:00 in the afternoon at her most recent follow-up just over a year ago. She says she tried it but she got too sleepy and reverted back to 10 mg twice daily. I sent her to physical therapy last November for balance and gait training with a cane. She does not quite remember if she went. She recalls that she went to physical therapy at some point it was not very helpful. She is not using a cane today. She also continues clonazepam 0.5 mg twice daily from psychiatry.She says that she has been getting a lot of shaking in her arms. She explains that she has cerebral palsy and that historically she has always had some t remor on the left, ever since she was a child. Now it is worse and it is affecting the right side.I have asked her to which of these 3 issues are bothering her the most and clarified that we have traditionally been treating the spasticity and we have not been treating the radiating neck pain. The numbness/tingling that is constant in the left side of the head is also new. All of these things are bothering her. We decided against any changes in the baclofen as she did not tolerate an increase the last time. I asked her to characterize the tremor more, it is occurring daily, and sometimes twice per day but is unpredictable and she cannot induce it. It is not at rest nor with intention. She shows me an example and was her left arm jerking and her elbow flexed and then says she cannot bend it out with the right side. Also, historically this is never occurred on the right side but now it is. Patient has no change in her mentation. She wonders if she needs an EEG. She had one when she was a child. The worsening started up 8 or 9 months ago but says that it started worsening before surgery. It was a little worse after surgery but clearly started beforehand. December 12, 2021 neurology follow-up reviewed:Since September 12, 2021 neurology follow-up encounter, and in fact just recently last week on December 03 while on vacation in [place], she fell while walking. She demonstrates how she fell forward on to her dorsal left hand and she says that there is a fracture in her hand into bones (she points towards the fourth and fifth metacarpals). This is currently braced but she says that surgery is planned. She feels that her gait is getting worse. She bought herself a cane. This seems to help. It is fine when she is walking on flat surfaces but when she is outside, she feels like her legs get all tight and her steps are short. She never did add the additional baclofen 0.5 of a 10 mg tablet at 4:00 in the afternoon. She continues to tablets in the morning when she awakens around 10 AM and 2 tablets at bedtime between 10 and 11 PM (20 mg twice daily). She does not ever forget the evening baclofen and denies any painful spasms. She has not had any change in bowel or bladder function.We had discussed in OT evaluation for head and neck spasms and tightness at her last visit but this never materialized. She went to see her orthopedic [employer], Savannah Martinez later this morning and had a right shoulder injection with steroid. They are also planning an MRI of the cervical spine.September 12 2021-she has noticed some increased tightness in the left arm. She also has some tightness in the neck and shoulders.-Went to physical therapy for gait since her last visit although she states that she was not assessed for a cane or walker. She does have a device that she uses when she is outside of the house. She lives alone in a single level home. She feels that her gait instability is adequately controlled. She continues with home stretches for her extremities.-She has increased her baclofen which she has done on her own from 10 mg, 1 tablet in the morning and 1.5 in the evening to 2 in the morning and 2 at night before bedtime. Began doing this over a month ago into June. She sometimes has some tightening of the left arm and hand, especially at night. She has also noticed some gradual increased tremor of the left arm. She feels like there has been a slight gradual increase in the tightness on the left side over the last year as well as a slight gradual increase in tremor which she says she has always had. July 19, 2020 encounter is reviewed:After July 16, 2020 neurology follow-up encounter, just over a year ago, she continued on 10 mg every evening, 11 PM of baclofen until May 2020, about a month ago, when walking became increasingly stiff and hard. She increased to 1.5 tablets every 11 PM. This helped a little. She walks sufficiently well in the morning. But starting around noon time, walking becomes increasingly difficult. She has to hold onto somebody on some days. She does not use a cane or walker. She has fallen a couple times but she has not hurt herself as she had in January 2019 when she fell and broke her left thumb necessitating surgery..Initial history is reviewed from January 14, 2016 initial neurology consultation: In early September 2015, she began noticing tight spasm-like discomfort in her upper outer thighs while walking. This has slowly worsened. The feeling comes on several minutes after she starts walking. If she continues walking, the discomfort worsens. When she sits down, the discomfort resolves immediately. If she stands up, the same process reoccurs, again only if she walks for more than a few minutes. She has a long history of gait imbalance and has fallen occasionally throughout her life. She hadnt fallen recently until 2 falls on the ice in August. She did not hurt herself seriously and is not clear in her own mind that these falls related at all to the onset of her thigh discomfort with walking. She has no lower back pain. She has had a slowly worsening feeling of gait imbalance, especially with walking up and down stairs.In approximately 2013, she had onset of aching pain in her right upper arma distinctly different feeling than the tight spasming feeling that she has felt emerging more recently in her thighs. The right arm aching pain is most prominent starting just below her shoulder and extending to her elbow and is more mild but still noticeable in her right forearm. There is also aching pain at her right posterior shoulder/upper back. The right arm aching pain is mostly continuousunlike the intermittent thigh symptoms. The right arm aching pain is worse in the evening and often makes it difficult to sleep. Baclofen 10 mg has not helped for any of her symptoms. Botox in her right shoulder has not helped for her right upper quadrant symptoms. Jaime Campoverde MD [address] [place] [address], [phone], [facility] Neurology [facility] 12/06/2024 14:37:21 06/20/2025 text/html Follow-up for shaking and discomfort of limbs. She had been seen initially January 14, 2016 for bilateral thigh tightness/discomfort while walking then more regularly starting November 2018.Past history includes cerebral palsy with history since she can remember of stuttering/word level perseveration, and problem with gait imbalance. She is unaccompanied.>>>>>>>> >>>>December 06, 2024Since June 07, 2024 Neurology follow-up encounter, she has increased the baclofen 10 mg tablets, as we discussed, first by half a tablet each dose to 2.5 tablets every 10 AM/10 PM, and then a week later up to 3 tablets every 10 AM/10 PM. It has helped her calf tightness so that it no longer bothers her. She does not remember if the 2.5 tablet help partially but evidently it did not help enough that she went straight to the 3 tablet doses. She has had no side effects. In particular, there has been no increase in her baseline tiredness t his has been true when we started baclofen and with any increase.She still gets bilateral arm shaking about five times a week, often with the left side more pronounced. It does not bother her enough to consider change in medication.She has had falls, about once a month. Each was without a cane. She has had no serious injury. She uses her cane sometimes, for instance if there is a long walk or uneven ground. Some of the falls, however, have been unexpected, such as with short distances in her house. I offered physical therapy reconsultation for brushing up on optimum gait posture and movement. She declines. I suggested she think about using her cane more.She has had no significant new or changing medical issues with other providers. >>>>>>>>>>>>June 07, 2024Since December 08 2023 Neurology follow-up encounter, tightness symmetrically in her calves has reemerged and is bothering her daily throughout the day. There is no predominance at any particular time of day. It does not wake her at night.She continues on the baclofen 20 mg every 10 AM, 20 mg every 10 PM, approximate waking and going to sleep times. She has not been taking the 4 PM 10 mg dose of baclofen and was not taking it in November 2023. When she has taken it in the past, it has not caused side effects. On the other hand, she has never noticed any additional benefit for an afternoon dosage. (Per chart, she did have side effects to the 4 PM dose.)She continues with her sleepiness that she has felt historically is her baseline sleepiness, unchanged from starting baclofen.She continues with ~5-minute episodes of arm shaking. This occurs about five times a day.She has had no medication changes from other healthcare providers. >>>>>>>>>>>>December 08 2023Since September 08, 2023 neurology follow-up she has added 10 mg of baclofen at 4 PM to her 20 mg in the morning and 20 mg at bedtime. She says that this has been helping with the tightness that she feels in her legs in the daytime. She does have some tiredness but she does not feel that it is any different than baseline tiredness. She does wake up a bit sleepy at times.She does continue to have episodes of arm shaking that lasted about 5 minutes at a time. She does not wish to resume levetiracetam which helped previously.She has started working with NELLI Dowd , [facility] for a long history of IBS, having some constipation issues. She started taking Linzess/minute closed hide 72 mcg in the morning in September. >>>>>>>>>>>>September 08 2023Since March 04, 2023 neurology follow-up, she reports that she is about the same. Sometimes her muscles get tight, especially when walking or when she is going up on a curb. She continues baclofen 10 mg tablets, 2 in the morning and 2 at bedtime. She has not particularly noticed if things are worse at a particular time of day. She is often sleepy. She has not noticed any spasms or tightness at nighttime. Shaking continues, particularly when she holds things, she shakes. I asked about levetiracetam. She does not remember it. She had settled on 250 mg nightly for myoclonic shaking at her last visit. She has not had any other medication changes or new diagnoses. >>>>>>>>>>>>March 04 2023Since January 27, 2023, she has resumed levetiracetam but is only taking one half of a 500 mg tablet at night and it is helping. She only rarely has a little bit of the shaking symptoms in her arm and its not very often. She feels that it is working. She has not had any other medication changes. She wishes to continue.Previously, she reported that she was having head pain on the left. I asked her about it. She had some injections in the shoulder and in the head from her manager plumbing, the most recent one was in December. I asked if this was a trigger point injection, she said it was a cortisone injection but it did not help. She has not done physical therapy for it and does not think that physical therapy would help on her head. >>>>>>>>>>>> January 27, 2023:After December 25, 2022 neurology follow-up at which time she had worsening tightening of her legs and difficulty walking (and also described an interval cervical surgery with some ongoing radiating pain toward the right shoulder, working with neurosurgery and physiatry) and increased episodes of tremors/shaking. She started levetiracetam 500 mg, 0.5 tablet nightly for myoclonic jerks. 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 She decided to retry it after she discovered there had been a stomach bug going around. She is currently on the levetiracetam 0.5 mg for a couple of weeks now and she is tolerating it without any side effects. No fatigability, no increased irritability. >>>>>>>>>>> December 25 2022Since December 12, 2021 neurology follow-up, she has been getting more fatigue and generalized tiredness. She had his cervical spine surgery last February for 2 discs which improved radiating pain into the right shoulder. (Dr Summers). But she does have some right-sided pain. And then, she began having tingling in a circular patch at the top of the head that never really goes away. It is constant. There is also pain radiating all the way down the left arm. She told her surgeon who said that she immediately needed another surgery for that side but she elected not to have a second surgery. The arm discomfort does not bother her as much as the tingling in the head. He also had an epidural steroid injection with physiatry (Dr Rodriguez) for the left arm symptoms but that did not help. She has noticed that her legs have been tightening up more and it is getting worse. It is hard to walk at times. She continues baclofen 20 mg twice daily at about 10:00 in the morning and 10 at night. I gave her a prescription for an extra 10 mg at 4:00 in the afternoon at her most recent follow-up just over a year ago. She says she tried it but she got too sleepy and reverted back to 10 mg twice daily. I sent her to physical therapy last November for balance and gait training with a cane. She does not quite remember if she went. She recalls that she went to physical therapy at some point it was not very helpful. She is not using a cane today. She also continues clonazepam 0.5 mg twice daily from psychiatry.She says that she has been getting a lot of shaking in her arms. She explains that she has cerebral palsy and that historically she has always had some t remor on the left, ever since she was a child. Now it is worse and it is affecting the right side.I have asked her to which of these 3 issues are bothering her the most and clarified that we have traditionally been treating the spasticity and we have not been treating the radiating neck pain. The numbness/tingling that is constant in the left side of the head is also new. All of these things are bothering her. We decided against any changes in the baclofen as she did not tolerate an increase the last time. I asked her to characterize the tremor more, it is occurring daily, and sometimes twice per day but is unpredictable and she cannot induce it. It is not at rest nor with intention. She shows me an example and was her left arm jerking and her elbow flexed and then says she cannot bend it out with the right side. Also, historically this is never occurred on the right side but now it is. Patient has no change in her mentation. She wonders if she needs an EEG. She had one when she was a child. The worsening started up 8 or 9 months ago but says that it started worsening before surgery. It was a little worse after surgery but clearly started beforehand. December 12, 2021 neurology follow-up reviewed:Since September 12, 2021 neurology follow-up encounter, and in fact just recently last week on December 03 while on vacation in [place], she fell while walking. She demonstrates how she fell forward on to her dorsal left hand and she says that there is a fracture in her hand into bones (she points towards the fourth and fifth metacarpals). This is currently braced but she says that surgery is planned. She feels that her gait is getting worse. She bought herself a cane. This seems to help. It is fine when she is walking on flat surfaces but when she is outside, she feels like her legs get all tight and her steps are short. She never did add the additional baclofen 0.5 of a 10 mg tablet at 4:00 in the afternoon. She continues to tablets in the morning when she awakens around 10 AM and 2 tablets at bedtime between 10 and 11 PM (20 mg twice daily). She does not ever forget the evening baclofen and denies any painful spasms. She has not had any change in bowel or bladder function.We had discussed in OT evaluation for head and neck spasms and tightness at her last visit but this never materialized. She went to see her orthopedic [employer], Savannah Martinez later this morning and had a right shoulder injection with steroid. They are also planning an MRI of the cervical spine.September 12 2021-she has noticed some increased tightness in the left arm. She also has some tightness in the neck and shoulders.-Went to physical therapy for gait since her last visit although she states that she was not assessed for a cane or walker. She does have a device that she uses when she is outside of the house. She lives alone in a single level home. She feels that her gait instability is adequately controlled. She continues with home stretches for her extremities.-She has increased her baclofen which she has done on her own from 10 mg, 1 tablet in the morning and 1.5 in the evening to 2 in the morning and 2 at night before bedtime. Began doing this over a month ago into June. She sometimes has some tightening of the left arm and hand, especially at night. She has also noticed some gradual increased tremor of the left arm. She feels like there has been a slight gradual increase in the tightness on the left side over the last year as well as a slight gradual increase in tremor which she says she has always had. July 19, 2020 encounter is reviewed:After July 16, 2020 neurology follow-up encounter, just over a year ago, she continued on 10 mg every evening, 11 PM of baclofen until May 2020, about a month ago, when walking became increasingly stiff and hard. She increased to 1.5 tablets every 11 PM. This helped a little. She walks sufficiently well in the morning. But starting around noon time, walking becomes increasingly difficult. She has to hold onto somebody on some days. She does not use a cane or walker. She has fallen a couple times but she has not hurt herself as she had in January 2019 when she fell and broke her left thumb necessitating surgery..Initial history is reviewed from January 14, 2016 initial neurology consultation: In early September 2015, she began noticing tight spasm-like discomfort in her upper outer thighs while walking. This has slowly worsened. The feeling comes on several minutes after she starts walking. If she continues walking, the discomfort worsens. When she sits down, the discomfort resolves immediately. If she stands up, the same process reoccurs, again only if she walks for more than a few minutes. She has a long history of gait imbalance and has fallen occasionally throughout her life. She hadnt fallen recently until 2 falls on the ice in August. She did not hurt herself seriously and is not clear in her own mind that these falls related at all to the onset of her thigh discomfort with walking. She has no lower back pain. She has had a slowly worsening feeling of gait imbalance, especially with walking up and down stairs.In approximately 2013, she had onset of aching pain in her right upper arma distinctly different feeling than the tight spasming feeling that she has felt emerging more recently in her thighs. The right arm aching pain is most prominent starting just below her shoulder and extending to her elbow and is more mild but still noticeable in her right forearm. There is also aching pain at her right posterior shoulder/upper back. The right arm aching pain is mostly continuousunlike the intermittent thigh symptoms. The right arm aching pain is worse in the evening and often makes it difficult to sleep. Baclofen 10 mg has not helped for any of her symptoms. Botox in her right shoulder has not helped for her right upper quadrant symptoms. Jaime Campoverde MD [address] [place], [place] [address] [place], [phone], [facility] Neurology [facility] 06/20/2025 14:44:03 OBGyn Episode No OBEpisode recorded.
--- OUTSIDE RECORDS SUMMARY | 2025-08-17 18:12 | XMS_ITS | Encounter Summary ---
Author Organization [facility] Address [address] [place] [address] Care Team Providers Care Frame Gate Mortiser Operator Name Role Phone Min Connor MD Primary Care Provider Unavail able Frandy Crisostomo MD, PHD Unavailable Unava ilable Jaime Combs PA-C Unavailable Misael Santamaria MD Primary Care Provider [phone] Encounter Details Date Type Department Care Team Description 07/06/2019 Lay Out Technician Report Medical Records [address] [place] [id number] Jaime Campoverde MD Social History Tobacco Use Types Packs/Day Years Used Date Smoking Tobacco: Never Smokeless Tobacco: Never Alcohol Use Standard Drinks/Week Comments Yes 0 (1 standard drink = 0.6 oz pur e alcohol) 1-3/d Sex Assigned at Date Recorded Female 05/26/2021 9:02 PM E DT Job Start Date Occupation Industry Not on file Not on file Not on file documented as of this encounter Plan of Treatment Not on file documented as of this encounter Visit Diagnoses Not on filedocumented in this encounter Care Teams Frame Gate Mortiser Operator Relationship Specialty Start Date End Date Min Connor MD PCP - General Internal Medicine 03/14/15 03/09/22 Misael Santamaria MD [address] [place] [id number] PCP - General Internal Medicine 03/10/22 Frandy Crisostomo MD, PHD Surgeon Neurosurgery 01/23/22 Jaime Combs PA-C [address] [place] [address] Specialist Neurosurgery 01/23/22 documented as of this encounter
--- OUTSIDE RECORDS SUMMARY | 2025-08-17 18:12 | XMS_ITS | Encounter Summary ---
Author Organization [facility] Address [address] [place] [address] Care Team Providers Care Aquatics Specialist Name Role Phone Min Connor MD Primary Care Provider Unavail able Frandy Crisostomo MD, PHD Unavailable Unava Jaime Ceballos PA-C Unavailable [phone] Misael Santamaria MD Primary Care Provider [phone] Encounter Details Date Type Department Care Team Description 02/27/2020 Refill Medicine/Pediatrics [address] [phone] Min Connor MD Social History Tobacco Use Types Packs/Day [...] on filedocumented in this encounter Care Teams Aquatics Specialist Relationship Specialty Start Date End Date Min Connor MD PCP - General Internal Medicine 03/14/15 03/09/22 Misael Santamaria MD [address] [place] [address] PCP - General Internal Medicine 03/10/22 Frandy Crisostomo MD, PHD Surgeon Neurosurgery 01/23/22 aJime Combs PA-C [address] [place] [address] Specialist Neurosurgery 01/23/22 documented as of this encounter
--- OUTSIDE RECORDS SUMMARY | 2025-08-17 18:12 | XMS_ITS | Encounter Summary ---
Author Organization [facility] Address [address] [place] [address] Care Team Providers Care Electroformer Name Role Phone Min Connor MD Primary Care Provider Unavail able Frandy Crisostomo MD, PHD Unavailable Unava ilable Jaime Combs PA-C Unavailable [phone] Misael Santamaria MD Primary Care Provider [phone] Reason for Referral * EXTERNAL (Priority) - Authorized/Booked Specialty Diagnoses / Procedures Referred By Saad ramos Referred To Contact Physiatry Procedures REFERRAL TO PHYSIATRY Semaj Bah PA-C [address] [place] [address] Darrick Frank DO [address] [address] Referral ID Status Reason Start Date Expiration Date V isits Requested Visits Authorized [id number] Authorized/B ooked 11/18/2021 05/20/2022 1 1 Encounter Details Date Type Department Care Team Description 11/18/2021 Orders Only Medicine/Pediatrics - [address] [phone] Semaj Bah PA-C Social History Tobacco Use Types Packs/Day Years Used Date Smoking Tobacco: Never Smokeless Tobacco: Never Alcohol Use Standard Drinks/Week Comments Yes 0 (1 standard drink = 0.6 oz pur e alcohol) 1-3/d Sex Assigned at Date Recorded Female 05/26/2021 9:02 PM E DT Job Start Date Occupation Industry Not on file Not on file Not on file COVID-19 Exposure Response Date Recorded In the last month, have you been in contact with someone who was confirmed or suspected to have Coronavirus / COVID-19? No / Unsure 10/29/2021 9:26 AM EST documented as of this encounter Plan of Treatment Not on file documented as of this encounter Visit Diagnoses Not on filedocumented in this encounter Care Teams Electroformer Relationship Specialty Start Date End Date Min Connor MD PCP - General Internal Medicine 03/14/15 03/09/22 Misael Santamaria MD [address] [place] [address] PCP - General Internal Medicine 03/10/22 Frandy Crisostomo MD, PHD Surgeon Neurosurgery 01/23/22 Jaime Combs PA-C [address] [place] [address] Specialist Neurosurgery 01/23/22 documented as of this encounter
--- OUTSIDE RECORDS SUMMARY | 2025-08-17 18:12 | XMS_ITS | Encounter Summary ---
Author Organization [facility] Address [address] [place] [address] Care Team Providers Care Steward/Stewardess Second Class Name Role Phone Frandy Crisostomo MD, PHD Unavailable Unava Jaime Ceballos PA-C Unavailable [phone] Misael Santamaria MD Primary Care Provider [phone] Encounter Details Date Type Department Care Team Description 06/04/2022 Pt. Non Urgent Medical Question [facility] Medical [facility] Neurosurgery [address] [place] [address] Frandy Crisostomo MD, PHD Social History Tobacco Use Types Packs/Day Years [...] Exposure Response Date Recorded In the last 10 days, have yo u been in contact with someone who was confirmed or suspected to have Coronavirus/COVID-19? No / Unsure 05/12/2022 1:19 PM EDT documented as of this encounter Plan of Treatment Not on file documented as of this encounter Visit Diagnoses Not on filedocumented in this encounter Care Teams Steward/Stewardess Second Class Relationship Specialty Start Date End Date Misael Santamaria MD [address] [place] [address] PCP - General Internal Medicine 03/10/22 Frandy Crisostomo MD, PHD Surgeon Neurosurgery 01/23/22 Jaime Combs PA-C [address] [place] [address] Specialist Neurosurgery 01/23/22 documented as of this encounter
--- OUTSIDE RECORDS SUMMARY | 2025-08-17 18:12 | XMS_ITS | Encounter Summary ---
Author Organization [facility] Address [address] [place] [address] Care Team Providers Care Gas Meter Reader Name Role Phone Frandy Crisostomo MD, PHD Unavailable Unava Jaime Ceballos PA-C Unavailable [phone] Misael Santamaria MD Primary Care Provider Reason for Visit * Reason Onset Date Comments Form 09/01/2023 Encounter Details Date Type Department Care Team Description 09/01/2023 Telephone Adult Medicine [address] [address] Misael Santamaria MD [address] [place] [address] Form Social History Tobacco Use Types Packs/Day Years Used Date Smoking Tobacco: Never Smokeless Tobacco: Never Alcohol Use Standard Drinks/Week Comments Yes 0 (1 standard drink = 0.6 oz pur e alcohol) 1-3/d Sex Assigned at Date Recorded Female 05/26/2021 9:02 PM E DT Job Start Date Occupation Industry Not on file Not on file Not on file documented as of this encounter Miscellaneous Notes * Telephone Encounter - Deepak AdameRashad - 09/01/2023 2:26 PM EST Information Needed Who is calling: [facility] Information being requested? Most recent visit note from primary care provider. Would like a note from pcp saying they would like her to be seen from the surgeon If other information is needed, was an PETER signed? NO How is the information to be communicated back to the caller? Faxed to [phone] call back at [phone] documented in this encounter Plan of Treatment Not on file documented as of this encounter Visit Diagnoses Not on filedocumented in this encounter Care Teams Gas Meter Reader Relationship Specialty Start Date End Date Misael Santamaria MD [address] [place] [address] PCP - General Internal Medicine 03/10/22 Frandy Crisostomo MD, PHD Surgeon Neurosurgery 01/23/22 Jaime Combs PA-C [address] [place] [address] [address] [place] [address] Specialist Neurosurgery 01/23/22 documented as of this encounter
--- OUTSIDE RECORDS SUMMARY | 2025-08-17 18:12 | XMS_ITS | Encounter Summary ---
Author Organization [facility] Address [address] [place] [address] Care Team Providers Care Vacuum Cleaner Assembler Name Role Phone Min Connor MD Primary Care Provider Unavail able Frandy Crisostomo MD, PHD Unavailable Unava ilable Jaime Combs PA-C Unavailable [phone] Misael Santamaria MD Primary Care Provider [phone] Encounter Details Date Type Department Care Team Description 01/14/2016 Deicer Repairer Report Medical Records [address] [place] [address] Jaime Campoverde MD Social History Tobacco Use Types Packs/Day Years Used Date Smoking Tobacco: Never Alcohol Use Standard Drinks/Week Comments [...] on filedocumented in this encounter Care Teams Vacuum Cleaner Assembler Relationship Specialty Start Date End Date Min Connor MD PCP - General Internal Medicine 03/14/15 03/09/22 Misael Santamaria MD [address] [place] [address] PCP - General Internal Medicine 03/10/22 Frandy Crisostomo MD, PHD Surgeon Neurosurgery 01/23/22 Jaime Combs PA-C [address] [place] [address] Specialist Neurosurgery 01/23/22 documented as of this encounter
--- OUTSIDE RECORDS SUMMARY | 2025-08-17 18:12 | XMS_ITS | Encounter Summary ---
Author Organization [facility] Address [address] [place] [address] Care Team Providers Care Network Security Architect Name Role Phone Min Connor MD Primary Care Provider Unavail able Frandy Crisostomo MD, PHD Unavailable Unava ilable Jaime Combs PA-C Unavailable [phone] Misael Santamaria MD Primary Care Provider [phone] Encounter Details Date Type Department Care Team Description 11/30/2018 Country Manager Report Medical Records [address] [place] [address] Jaime Campoverde MD Social History Tobacco Use [...] on filedocumented in this encounter Care Teams Network Security Architect Relationship Specialty Start Date End Date Min Connor MD PCP - General Internal Medicine 03/14/15 03/09/22 Misael Santamaria MD [address] [place] [address] PCP - General Internal Medicine 03/10/22 Frandy Crisostomo MD, PHD Surgeon Neurosurgery 01/23/22 Jaime Combs PA-C [address] [place] [address] Specialist Neurosurgery 01/23/22 documented as of this encounter
--- OUTSIDE RECORDS SUMMARY | 2025-08-17 18:12 | XMS_ITS | Encounter Summary ---
Author Organization [facility] Address [address] [place] [address] Care Team Providers Care Grid Molder Name Role Phone Min Connor MD Primary Care Provider Unavail able Frandy Crisostomo MD, PHD Unavailable Unava Jaime Ceballos PA-C Unavailable [phone] Misael Santamaria MD Primary Care Provider [phone] Encounter Details Date Type Department Care Team Description 03/10/2018 [facility] Medical Records [address] [place] [address] Abstract, Provider Social History Tobacco Use Types Packs/Day Years [...] on filedocumented in this encounter Care Teams Grid Molder Relationship Specialty Start Date End Date Min Connor MD PCP - General Internal Medicine 03/14/15 03/09/22 Misael Santamaria MD [address] [place] [address] PCP - General Internal Medicine 03/10/22 Frandy Crisostomo MD, PHD Surgeon Neurosurgery 01/23/22 Jaime Combs PA-C [address] [place] [address] Specialist Neurosurgery 01/23/22 documented as of this encounter
--- OUTSIDE RECORDS SUMMARY | 2025-08-17 18:12 | XMS_ITS | Encounter Summary ---
Author Organization [facility] Address [address] [place] [address] Care Team Providers Care Masonry Instructor Name Role Phone Frandy Crisostomo MD, PHD Unavailable Unava Jaime Ceballos PA-C Unavailable [phone] Misael Santamaria MD Primary Care Provider Encounter Details Date Type Department Care Team Description 03/13/2022 [facility] Neurosurgery [place] [address] [place] [address] Frandy Crisostomo MD, PHD Social [...] suspected to have Coronavirus/COVID-19? No / Unsure 02/26/2022 12:54 PM EDT documented as of this encounter Plan of Treatment Not on file documented as of this encounter Visit Diagnoses Not on filedocumented in this encounter Care Teams Masonry Instructor Relationship Specialty Start Date End Date Misael Santamaria MD [address] [place] [address] PCP - General Internal Medicine 03/10/22 Frandy Crisostomo MD, PHD Surgeon Neurosurgery 01/23/22 Jaime Combs PA-C [address] [place] [address] Specialist Neurosurgery 01/23/22 documented as of this encounter
--- OUTSIDE RECORDS SUMMARY | 2025-08-17 18:12 | XMS_ITS | Encounter Summary ---
Author Organization [facility] Address [address] [place] [address] Care Team Providers Care Heating And Cooling Systems Engineer Name Role Phone Min Connor MD Primary Care Provider Unavail able Frandy Crisostomo MD, PHD Unavailable Unava Jaime Ceballos PA-C Unavailable [phone] Misael Santamaria MD Primary Care Provider [phone] Encounter Details Date Type Department Care Team Description 05/03/2018 [facility] Medical Records [address] [place] [address] Abstract, Provider Social History Tobacco Use Types [...] on filedocumented in this encounter Care Teams Heating And Cooling Systems Engineer Relationship Specialty Start Date End Date Min Connor MD PCP - General Internal Medicine 03/14/15 03/09/22 Misael Santamaria MD [address] [place] [address] PCP - General Internal Medicine 03/10/22 Frandy Crisostomo MD, PHD Surgeon Neurosurgery 01/23/22 Jaime Combs PA-C [address] [place] [address] Specialist Neurosurgery 01/23/22 documented as of this encounter
--- OUTSIDE RECORDS SUMMARY | 2025-08-17 18:12 | XMS_ITS | Encounter Summary ---
Author Organization [facility] Address [address] [place] [address] Care Team Providers Care Information Services Vice President Name Role Phone Min Connor MD Primary Care Provider Unavail able Frandy Crisostomo MD, PHD Unavailable Unava ilable Jaime Combs PA-C Unavailable [phone] Misael Santamaria MD Primary Care Provider [phone] Encounter Details Date Type Department Care Team Description 07/25/2019 Orders Only Lab - [place] [address] [place] [address] Semaj Bah PA-C Fatigue, unspecified type (Primary Dx); Constipation, unspecified constipation type; Abdominal bloating Social History Tobacco Use Types Packs/Day Years [...] on file documented as of this encounter Results * RBC SEDIMENTATION RATE, NON-AUTO (07/25/2019 2:56 PM EDT) ERYTHROCYTE SEDIMENTATION RATE 12 0 - 30 mm/hr 07/25/2019 7:08 PM EDT [facility] 07/25/2019 2:56 PM EDT 07/25/2019 2:57 PM EDT Semaj Bah PA-C LAB [facility] * (ABNORMAL) CBC (AUTO DIFF PLATELET) (07/25/2019 2:56 PM EDT) WHITE BLOOD COUNT 5.8 4.8 - 10.8 x10-3/uL 07/25/2019 6:31 PM EDT [facility] RED BLOOD COUNT 4.6 3.8 - 4.8 x10-6/uL 07/25/2019 6:31 PM EDT [facility] Hemoglobin 13.8 11.5 - 16.0 g/dL 07/25/2019 6:31 PM EDT [facility] Hematocrit 41.7 35 - 47 % 07/25/2019 6:31 PM EDT [facility] MEAN CORPUSCULAR VOLUME 91.0 79 - 98 fL 07/25/2019 6:31 PM EDT [facility] MEAN CORPUSCULAR HEMOGLOBIN 30.1 27 - 32 pg 07/25/2019 6:31 PM EDT [facility] MEAN CORPUSCULAR HGB CONC 33.1 32 - 37 g/dL 07/25/2019 6:31 PM EDT [facility] RED CELL DISTRIBUTION WIDTH 11.9 11 - 15 % 07/25/2019 6:31 PM EDT [facility] PLT COUNT 253 130 - 400 x10-3/uL 07/25/2019 6:31 PM EDT [facility] MEAN PLATELET VOLUME 11.8(H) 7 - 11 fL 07/25/2019 6:31 PM EDT [facility] NRBC % AUTO 0.0 <1 % 07/25/2019 6:31 PM EDT [facility] NEUTROPHILS % 57.7 % 07/25/2019 6:31 PM EDT [facility] LYMPH % 31.1 % 07/25/2019 6:31 PM EDT [facility] MONO % 8.9 % 07/25/2019 6:31 PM EDT [facility] EOS % 1.6 % 07/25/2019 6:31 PM EDT [facility] BASO % 0.5 % 07/25/2019 6:31 PM EDT [facility] IMMATURE GRANULOCYTES % 0.2 % 07/25/2019 6:31 PM EDT [facility] NRBC # AUTO 0.00 <0.1 x10-3/uL 07/25/2019 6:31 PM EDT [facility] NEUT # 3.33 1.5 - 7.0 x10-3/uL 07/25/2019 6:31 PM EDT [facility] LYMPH # 1.79 1 - 5.0 x10-3/uL 07/25/2019 6:31 PM EDT [facility] MONO # 0.51 0.2 - 1.0 x10-3/uL 07/25/2019 6:31 PM EDT [facility] EOS # 0.09 0 - 0.5 x10-3/uL 07/25/2019 6:31 PM EDT [facility] BASO # 0.03 0 - 0.2 x10-3/uL 07/25/2019 6:31 PM EDT [facility] IMMATURE GRANULOCYTES # 0.01 0 - 0.03 x10-3/uL 07/25/2019 6:31 PM EDT [facility] 07/25/2019 2:56 PM EDT 07/25/2019 2:57 PM EDT Semaj Bah PA-C LAB Performing Organization Address [facility]/ZIP Co de Phone Number [facility] * TSH (07/25/2019 2:56 PM EDT) TSH 1.89 0.40 - 4.00 uIU/ml 07/25/2019 6:46 PM EDT [facility] 07/25/2019 2:56 PM EDT 07/25/2019 2:57 PM EDT Semaj Bah PA-C LAB Performing Organization Address [facility]/State/ZIP Co de Phone Number [facility] * COMPREHENSIVE METABOLIC PANEL (07/25/2019 2:56 PM EDT) GLUCOSE 86 70 - 100 mg/dL 07/25/2019 6:38 PM EDT [facility] Comment:Reference range appl icable to fasting specimens only Blood Urea Nitrogen 15 5 - 25 mg/dL 07/25/2019 6:38 PM EDT [facility] CREAT 1.01 0.5 - 1.1 mg/dL 07/25/2019 6:38 PM EDT [facility] GLOMERULAR FILTRATION RATE 57 07/25/2019 6:38 PM EDT [facility] Comment: If patient is -Citizen Of The [place], multiply result by 1.21 Chronic Kidney Disease: < 60 ml/min/1.73 square meters Kidney Failure: < 15 ml/min/1.73 square meters NA 138 135 - 145 mEq/L 07/25/2019 6:38 PM EDT [facility] K 4.1 3.5 - 5.5 mmol/L 07/25/2019 6:38 PM EDT [facility] CL 104 96 - 110 mmol/L 07/25/2019 6:38 PM EDT [facility] CARBON DIOXIDE (CO2) 29 21 - 32 mmol/L 07/25/2019 6:38 PM EDT [facility] ANION GAP 5 3 - 11 07/25/2019 6:38 PM EDT [facility] CALCIUM 9.4 8.5 - 10.5 mg/dL 07/25/2019 6:38 PM EDT [facility] Albumin 4.3 3.2 - 5.0 G/dL 07/25/2019 6:38 PM EDT [facility] SGPT 37 10 - 60 U/L 07/25/2019 6:38 PM EDT [facility] TOTAL PROTEIN (TP) 7.1 6.0 - 8.0 G/dL 07/25/2019 6:40 PM EDT [facility] BILIRUBIN TOTAL 0.4 0.0 - 1.4 mg/dL 07/25/2019 6:40 PM EDT [facility] SGOT 31 10 - 42 U/L 07/25/2019 6:40 PM EDT [facility] ALK PHOS 121 42 - 121 U/L 07/25/2019 6:40 PM EDT [facility] 07/25/2019 2:56 PM EDT 07/25/2019 2:57 PM EDT Semaj Bah PA-C LAB [facility] documented in this encounter Visit Diagnoses Diagnosis Fatigue, unspecified type- Primary Constipation, unspecified constipation type Abdominal bloating Flatulence, eructation, and gas pain documented in this encounter Care Teams Information Services Vice President Relationship Specialty Start Date End Date Min Connor MD PCP - General Internal Medicine 03/14/15 03/09/22 Misael Santamaria MD [address] [place] [address] PCP - General Internal Medicine 03/10/22 Frandy Crisostomo MD, PHD Surgeon Neurosurgery 01/23/22 Jaime Combs PA-C [address] [place] [address] Specialist Neurosurgery 01/23/22 documented as of this encounter
--- OUTSIDE RECORDS SUMMARY | 2025-08-17 18:12 | XMS_ITS | Encounter Summary ---
Author Organization [facility] Address [address] [place] [address] Care Team Providers Care Probate Judge Name Role Phone Min Connor MD Primary Care Provider Unavail able Frandy Crisostomo MD, PHD Unavailable Unava Jaime Ceballos PA-C Unavailable Misael Santamaria MD Primary Care Provider [phone] Encounter Details Date Type Department Care Team Description 10/04/2018 Transfer Records Medical Records [address] [place] [address] Abstract, Provider Social History Tobacco Use Types [...] on filedocumented in this encounter Care Teams Probate Judge Relationship Specialty Start Date End Date Min Connor MD PCP - General Internal Medicine 03/14/15 03/09/22 Misael Santamaria MD [address] [place] [address] PCP - General Internal Medicine 03/10/22 Frandy Crisostomo MD, PHD Surgeon Neurosurgery 01/23/22 Jaime Combs PA-C [address] [place] [address] Specialist Neurosurgery 01/23/22 documented as of this encounter
--- OUTSIDE RECORDS SUMMARY | 2025-08-17 18:12 | XMS_ITS ---
Author Name [facility] Organization Unknown Care Team Organization Name Specialty Phone Email Start Date End Da te [facility] Tania Dias Primary Care 06/04/2023 05/16/2024 [facility] [place], PROVIDER Primary Care 08/05/202204/28
--- OUTSIDE RECORDS SUMMARY | 2025-08-17 18:12 | XMS_ITS | Encounter Summary ---
Author Organization [facility] Address [address] [place] [address] Care Team Providers Care Apprentice Embalmer Name Role Phone Min Connor MD Primary Care Provider Unavail able Frandy Crisostomo MD, PHD Unavailable Unava Jaime Ceballos PA-C Unavailable [phone] Misael Santamaria MD Primary Care Provider [phone] Encounter Details Date Type Department Care Team Description 11/05/2018 Release of Information Medical Records [address] [place] [address] Abstract, Provider Social History Tobacco Use Types [...] on filedocumented in this encounter Care Teams Apprentice Embalmer Relationship Specialty Start Date End Date Min Connor MD PCP - General Internal Medicine 03/14/15 03/09/22 Misael Santamaria MD [address] [place] [address] PCP - General Internal Medicine 03/10/22 Frandy Crisostomo MD, PHD Surgeon Neurosurgery 01/23/22 Jaime Combs PA-C [address] [place] [address] Specialist Neurosurgery 01/23/22 documented as of this encounter
--- OUTSIDE RECORDS SUMMARY | 2025-08-17 18:12 | XMS_ITS | Encounter Summary ---
Author Organization [facility] Address [address] [place] [address] Care Team Providers Care Rigger Helper Name Role Phone Frandy Crisostomo MD, PHD Unavailable Unava Jaime Ceballos PA-C Unavailable [phone] Misael Santamaria MD Primary Care Provider [phone] Encounter Details Date Type Department Care Team Description 01/26/2023 Pt. Non Urgent Medical Question Medicine/Pediatrics - [address] [address] Misael Santamaria MD [address] [place] [address] Social History Tobacco Use Types Packs/Day Years [...] suspected to have Coronavirus/COVID-19? No / Unsure 01/27/2023 2:58 PM EDT documented as of this encounter Miscellaneous Notes * Telephone Encounter - Khalida Souza M.A. - 01/27/2023 8:06 AM EDTFrom: Natalie Dickerson To: Josué Santamaria Sent: 01/26/2023 8:46 PM EDT Subject: Appointment Hello, I think I have a UTI or yeast infection. It is not Itchy but it hurts a lot. I have the urgeto pee a lot but not a lot comes out. There is on discharge or smell. I would like to come in and get this checked out. It has been about a week like this. Please call me at [phone] Thank you, Natalie Dominguez ll documented in this encounter Plan of Treatment Not on file documented as of this encounter Visit Diagnoses Not on filedocumented in this encounter Care Teams Rigger Helper Relationship Specialty Start Date End Date Misael Santamaria MD [address] [place] [address] PCP - General Internal Medicine 03/10/22 Frandy Crisostomo MD, PHD Surgeon Neurosurgery 01/23/22 Jaime Combs PA-C [address] [facility] [address] [place] [address] Specialist Neurosurgery 01/23/22 documented as of this encounter
--- OUTSIDE RECORDS SUMMARY | 2025-08-17 18:12 | XMS_ITS | Encounter Summary ---
Author Organization [facility] Address [address] [place] [address] Care Team Providers Care Cinetechnician Name Role Phone Frandy Crisostomo MD, PHD Unavailable Unava Jaime Ceballos PA-C Unavailable [phone] Misael Santamaria MD Primary Care Provider [phone] Encounter Details Date Type Department Care Team Description 01/27/2023 Lamp Tester And Inspector Report Medical Records [address] [place] [address] Rupal West PA-C Social History Tobacco Use Types Packs/Day [...] on filedocumented in this encounter Care Teams Cinetechnician Relationship Specialty Start Date End Date Misael Santamaria MD [address] [place] [address] PCP - General Internal Medicine 03/10/22 Fradny Crisostomo MD, PHD Surgeon Neurosurgery 01/23/22 Jaime Combs PA-C [address] [place] [address] Specialist Neurosurgery 01/23/22 documented as of this encounter
--- OUTSIDE RECORDS SUMMARY | 2025-08-17 18:12 | XMS_ITS | Encounter Summary ---
Author Organization [facility] Address [address] [place] [address] Care Team Providers Care Extracorporeal Technician Name Role Phone Frandy Crisostomo MD, PHD Unavailable Unava ilable Jaime Combs PA-C Unavailable [phone] Misael Santamaria MD Primary Care Provider [phone] Encounter Details Date Type Department Care Team Description 12/25/2022 Jailor Report Medical Records [address] [place] [address] Rupal West PA-C Social History Tobacco Use [...] on filedocumented in this encounter Care Teams Extracorporeal Technician Relationship Specialty Start Date End Date Misael Santamaria MD [address] [place] [address] PCP - General Internal Medicine 03/10/22 Frandy Crisostomo MD, PHD Surgeon Neurosurgery 01/23/22 Jaime Combs PA-C [address] [facility] [address] [place] [address] Specialist Neurosurgery 01/23/22 documented as of this encounter
--- OUTSIDE RECORDS SUMMARY | 2025-08-17 18:12 | XMS_ITS | Encounter Summary ---
Author Organization [facility] Address [address] [place] [address] Care Team Providers Care Social Security Assessor Name Role Phone Min Connor MD Primary Care Provider Unavail able Frandy Crisostomo MD, PHD Unavailable Unava ilable Jaime Combs PA-C Unavailable [phone] Misael Santamaria MD Primary Care Provider [phone] Reason for Visit * Reason Comments E-prescribe Rx Request Encounter Details Date Type Department Care Team Description 01/20/2019 Refill Medicine/Pediatrics [address] [address] Semaj Bah PA-C E-prescribe Rx Request Social History Tobacco Use Types Packs/Day Years [...] encounter Miscellaneous Notes * Telephone Encounter - Saba Rodriguez M.A. - 01/20/2019 8:43 AM EDT Last office visit 12/10/18 Lab Results Component Value Date NA 140 10/28/2018 K 3.7 10/28/2018 CO2 30 10/28/2018 CL 103 10/28/2018 BUN 21 10/28/2018 CREAT 0.80 10/28/2018 GLU 94 10/28/2018 CA 9.4 10/28/2018 GFR > 60 10/28/2018 * Telephone Encounter - Narcisa Bermudez - 01/20/2019 8:41 AM EDT Patient would like script to be: E-PRESCRIBED/FAXED TO PHARMACY WHEN WAS THE PATIENT'S LAST APPOINTMENT IN ADULT MEDICINE? [id number] WHEN WAS THE LAST TIME THE PATIENT SAW THEIR PCP? Same as above Does patient have an upcoming appointment? No (THE MEDICATION REQUESTED IS ON THE MED LIST ABOVE) All of the medications requested were on the CURRENT MEDS list Did you check the Pharmacy information above?: YES Patient wants: 30 -day supply Is this a mail order prescription request ? NO If the refill is from a FAXED refill request what is the RX # listed on the fax? N/A Patients current insurance carrier is: [facility] / Plan: [facility] / Product Type: MEDICAID RISK documented in this encounter Plan of Treatment Not on file documented as of this encounter Visit Diagnoses Not on filedocumented in this encounter Care Teams Social Security Assessor Relationship Specialty Start Date End Date Min Connor MD PCP - General Internal Medicine 03/14/15 03/09/22 Misael Santamaria MD [address] [place] [address] PCP - General Internal Medicine 03/10/22 Frandy Crisostomo MD, PHD Surgeon Neurosurgery 01/23/22 Jaime Combs PA-C [address] [place] [address] Specialist Neurosurgery 01/23/22 documented as of this encounter
--- OUTSIDE RECORDS SUMMARY | 2025-08-17 18:12 | XMS_ITS | Encounter Summary ---
Author Organization [facility] Address [address] [place] [address] Care Team Providers Care Swing Driver Name Role Phone Frandy Crisostomo MD, PHD Unavailable Unava Jaime Ceballos PA-C Unavailable [phone] Misael Santamaria MD Primary Care Provider [phone] Encounter Details Date Type Department Care Team Description 03/21/[address] [facility] Neurosurgery [place] [address] [place] [address] Frandy Crisostomo MD, PHD Social [...] on filedocumented in this encounter Care Teams Swing Driver Relationship Specialty Start Date End Date Misael Santamaria MD [address] [place] [address] PCP - General Internal Medicine 03/10/22 Frandy Crisostomo MD, PHD Surgeon Neurosurgery 01/23/22 Jaime Combs PA-C [address] [place] [address] Specialist Neurosurgery 01/23/22 documented as of this encounter
--- OUTSIDE RECORDS SUMMARY | 2025-08-17 18:12 | XMS_ITS | Encounter Summary ---
Author Organization [facility] Address [address] [place] [address] Care Team Providers Care Grout Worker Name Role Phone Min Connor MD Primary Care Provider Unavail able Frandy Crisostomo MD, PHD Unavailable Unava Jaime Ceballos PA-C Unavailable [phone] Misael Santamaria MD Primary Care Provider [phone] Encounter Details Date Type Department Care Team Description 03/13/2016 Pt. Non Urgent Medical Question Medicine/Pediatrics - [address] [address] Min Connor MD Social History Tobacco Use Types Packs/Day Years Used Date Smoking Tobacco: Never Alcohol Use Standard Drinks/Week Comments Yes 0 (1 standard drink = 0.6 oz pur e alcohol) 1-3/d Sex Assigned at Date Recorded Female 05/26/2021 9:02 PM E DT Job Start Date Occupation Industry Not on file Not on file Not on file documented as of this encounter Progress Notes * Rosa M Rodriguez M.A. - 03/13/2016 4:00 PM EDTFrom: Ntaalie Weathers To: Min Connor MD Sent: 03/13/2016 3:59 PM EDT Subject: Prescription refill Hi Dr. Connor. I recently started to take the Clonazepam 0.5 mg again. It seems to be helping. This was prescribedto me by Dr. Woodall however, he is no longer at the [facility]. I am wondering if you could send in a refill at [facility] in [place] for me. Thank you, Natalie documented in this encounter Plan of Treatment Not on file documented as of this encounter Visit Diagnoses Not on filedocumented in this encounter Care Teams Grout Worker Relationship Specialty Start Date End Date Min Connor MD PCP - General Internal Medicine 03/14/15 03/09/22 Misael Santamaria MD [address] [place] [address] PCP - General Internal Medicine 03/10/22 Frandy Crisostomo MD, PHD Surgeon Neurosurgery 01/23/22 Jaime Combs PA-C [address] [facility] [address] [place] [address] Specialist Neurosurgery 01/23/22 documented as of this encounter
--- OUTSIDE RECORDS SUMMARY | 2025-08-17 18:12 | XMS_ITS | Continuity of Care Document ---
Author Organization [facility] Address [address] [facility] [place] [address] Care Team Providers Care Clinical Technician Name Role Phone RIYA TRAMMELL Referring Provider AMALIA RAZA Primary Care Provider Assessment Encounter Date Assessment Date Assessment LastModified by Organization Details LastModified Time 06/20/2025 06/20/2025 IMPRESSION: Cerebral palsy with symmetric [...] continuous tingling in her left parietal region >>>>>>>>>>>>May emb2024 She wonders why she has been [...] Pristiq 50 mg QD , multivitamin >>>>>>>>>>>>Lars h 2024 She is happy with her baclofen [...] arm shaking in the past PLAN Natalie weeksJune 20, 2025 CONTINUE BACLOFEN 10 mg tablets: [...] the care of a neurosurgeon and a joint creaser and I defer to them for the [...] to go to physical in therapy in [place] for myofascial release which is something that you have not tried, especially as you are now live in [place]. For the tingling from time to time [...] Orders baclofen 10 mg tablet 2024 025 garyvij[id number], [address], [place], [id number], 06/20/2025 14:43:04 Patient TargetsNo targets recorded. Patient Instructions Encounter Date Encounter Id Patient Instructions Last Modified By Organization Details Last Modified Time 06/20/2025 [id number] PREVIOUS MEDICATIONS Levetiracetam 500 mg, 0.5 tablets [...] has had injections for this with her joint creaser which have not been helping. Examination notable [...] Address Organization Details Recorded Time Cerebral palsy 428605067 Active 021 G80.9 Georgia hendricks MA [facility] 11:23:26 Problem Notes None recorded. Procedures Surgical History Date Name Laterality Status Provider Name and Address Organization Details Recorded Time 06/20/2025 DATA REVIEW completed Jaime Campoverde MD [address] [place] [address] [place], [address], Formerly [facility] 06/20/2025 14:08:58 12/06/2024 DATA REVIEW completed Jaime Campoverde MD [address] [facility] Dmitriy B, [place], [address], Formerly [facility] 12/06/2024 14:18:27 06/07/2024 DATA REVIEW completed Jaime Campoverde MD [address] [facility] B, [place], [address], Formerly [facility] 06/07/2024 14:42:48 12/08/2023 DATA REVIEW completed AMERICO QUIROZ PA-C [address] [place] [address] B, [place], [address], Formerly [facility] 12/08/2023 13:50:57 09/08/2023 DATA REVIEW completed AMERICO QUIROZ PA-C [address] [place] [address] B, [place], [address], Formerly [facility] 09/08/2023 13:59:25 03/04/2023 DATA REVIEW completed AMERICO QUIROZ PA-C [address] [facility] Dmitriy B, [place], [address], Formerly [facility] 03/04/2023 11:19:33 01/27/2023 DATA REVIEW completed DAYDAY LEY [facility] B, [place], [address], Formerly [facility] 01/27/2023 10:10:18 12/25/2022 DATA REVIEW completed DAYDAY LEY [facility] Dmitriy B, [place], [address], Formerly [facility] 12/25/2022 13:19:04 12/12/2021 DATA REVIEW completed DAYDAY LEY [facility] Dmitriy B, [place], [address], Formerly [facility] 12/12/2021 13:13:14 09/12/2021 DATA REVIEW completed DAYDAY LEY [facility] B, [place], [address], Formerly [facility] 09/12/2021 17:55:05 Imaging Results None recorded. Procedure [...] ICD10 Code Diagnosis IMO Codes Diagnosis Note 13601 Jaime Campoverde MD [facility] [address] [place] [address] [place] [address] 06/20/2025 14:02:24 06/25/2025 10:24:00 Cerebral palsy [id number] G80.9 Abnormal gait [id number] R 26.81 Myalgia/my ositis - multiple [id number] M79.10 Dystonia [id number] G24.2 Health Concerns Section Related Observation LastModified by Organization Detai ls LastModified Time None Recorded Concern Status LastModified by Organization Details LastModified Time None Recorded Payers Encounter Date Sequence Insurance Name Policy Number Policy Jones Covered Member ID Jones Member ID Guarantor Name 06/20/2025 1 MEDICARE B-[place]: [facility] Natalie Hercules [id number] Natalie Fabian Sarahy Notes Date Note Type Note Provider Name and Address Organization Details Recorded Time 06/20/2025 text/html Follow-up for shaking and discomfort [...] has started working with NELLI Dowd , [facility] for a long history of IBS, [...] shoulder and in the head from her joint creaser, the most recent one was in December. [...] on December 03 while on vacation in [place], she fell while walking. She demonstrates how [...] materialized. She went to see her orthopedic OWNER OPERATOR TANKER TRUCK DRIVER, Savannah Martinez later this morning and had [...] right upper quadrant symptoms. Jaime Campoverde MD [address] [place] [address] [place], [address], Formerly [facility] 06/20/2025 14:44:03 OBGyn Episode No OBEpisode recorded.
--- OUTSIDE RECORDS SUMMARY | 2025-08-17 18:12 | XMS_ITS | Encounter Summary ---
Author Organization [facility] Address [address] [place] [address] Care Team Providers Care Client Sales And Service Officer Name Role Phone Min Connor MD Primary Care Provider Unavail able Frandy Crisostomo MD, PHD Unavailable Unava ilJaime Santiago PA-C Unavailable [phone] Misael Santamaria MD Primary Care Provider [phone] Encounter Details Date Type Department Care Team Description 12/09/2021 SCAN [facility] Medical [facility] [address] [facility] [address] [place] [phone] Savannah Martinez APRN Social History Tobacco Use Types Packs/Day Years [...] have Coronavirus / COVID-19? No / Unsure 12/12/2021 10:18 AM EDT documented as of this encounter Plan of Treatment Not on file documented as of this encounter Visit Diagnoses Not on filedocumented in this encounter Care Teams Client Sales And Service Officer Relationship Specialty Start Date End Date Min Connor MD PCP - General Internal Medicine 03/14/15 03/09/22 Misael Santamaria MD [address] [place] [address] PCP - General Internal Medicine 03/10/22 Frandy Crisostomo MD, PHD Surgeon Neurosurgery 01/23/22 Jaime Combs PA-C [address] [place] [address] Specialist Neurosurgery 01/23/22 documented as of this encounter
--- OUTSIDE RECORDS SUMMARY | 2025-08-17 18:13 | XMS_ITS | Encounter Summary ---
Author Organization [facility] Address [address] [place] [address] Care Team Providers Care Recreation Attendant Name Role Phone Frandy Crisostomo MD, PHD Unavailable Unava ilable Jaime Combs PA-C Unavailable [phone] Misael Santamaria MD Primary Care Provider [phone] Encounter Details Date Type Department Care Team Description 02/18/2024 Content Development Manager Report Medical Records [address] [place] [address] Jazlyn Lucas E, NABIL Social History Tobacco Use Types Packs/Day Years [...] on filedocumented in this encounter Care Teams Recreation Attendant Relationship Specialty Start Date End Date Misael Santamaria MD [address] [place] [address] PCP - General Internal Medicine 03/10/22 Frandy Crisostomo MD, PHD Surgeon Neurosurgery 01/23/22 Jaime Combs PA-C [address] [facility] [address] [place] [address] Specialist Neurosurgery 01/23/22 documented as of this encounter
--- OUTSIDE RECORDS SUMMARY | 2025-08-17 18:13 | XMS_ITS | Encounter Summary ---
Author Organization [facility] Address [address] [place] [address] Care Team Providers Care Gambling Monitor Name Role Phone Min Connor MD Primary Care Provider Unavail able Frandy Crisostomo MD, PHD Unavailable Unava Jaime Ceballos PA-C Unavailable [phone] Misael Santamaria MD Primary Care Provider [phone] Encounter Details Date Type Department Care Team Description 09/06/2015 Pt. Non Urgent Medical Question Medicine/Pediatrics - [address] [address] Min Connor MD Social History Tobacco Use Types Packs/Day Years Used Date Smoking Tobacco: Never Alcohol Use Standard Drinks/Week Comments Yes 0 (1 standard drink = 0.6 oz pur e alcohol) 0-2/d Sex Assigned at Date Recorded Female 05/26/2021 9:02 PM E DT Job Start Date Occupation Industry Not on file Not on file Not on file documented as of this encounter Progress Notes * Shante Alvares L.P.N. - 09/06/2015 1:13 PM ESTFrom: Natalie Weathers To: Min Connor MD Sent: 09/06/2015 1:06 PM EST Subject: Hot Flashes/night sweat Hi Dr. Connor, I am experiencing extreme hot flashes and night Sweats. It's been going on 3 months now. What can you suggest that will help these. Thank you, Natalie Goetz!! documented in this encounter Plan of Treatment Not on file documented as of this encounter Visit Diagnoses Not on filedocumented in this encounter Care Teams Gambling Monitor Relationship Specialty Start Date End Date Min Connor MD PCP - General Internal Medicine 03/14/15 03/09/22 Misael Santamaria MD [address] [place] [address] PCP - General Internal Medicine 03/10/22 Frandy Crisostomo MD, PHD Surgeon Neurosurgery 01/23/22 Jaime Combs PA-C [address] [facility] [address] [place] [address] Specialist Neurosurgery 01/23/22 documented as of this encounter
--- OUTSIDE RECORDS SUMMARY | 2025-08-17 18:13 | XMS_ITS | Encounter Summary ---
Author Organization [facility] Address [address] [place] [address] Care Team Providers Care Automotive Parts Counter Person Name Role Phone Frandy Crisostomo MD, PHD Unavailable Unava Jaime Ceballos PA-C Unavailable [phone] Misael Santamaria MD Primary Care Provider [phone] Reason for Visit * Reason Onset Date Comments refill request 12/02/2023 Encounter Details Date Type Department Care Team Description 12/02/2023 Refill Medicine/Pediatrics [address] [phone] Min Connor MD refill request Social History Tobacco Use Types Packs/Day Years [...] on filedocumented in this encounter Care Teams Automotive Parts Counter Person Relationship Specialty Start Date End Date Misael Santamaria MD [address] [place] [address] PCP - General Internal Medicine 03/10/22 Frandy Crisostomo MD, PHD Surgeon Neurosurgery 01/23/22 Jaime Combs PA-C [address] [place] [address] Specialist Neurosurgery 01/23/22 documented as of this encounter
--- OUTSIDE RECORDS SUMMARY | 2025-08-17 18:13 | XMS_ITS | Encounter Summary ---
Author Organization [facility] Address [address] [place] [address] Care Team Providers Care Transmission Technician Name Role Phone Min Connor MD Primary Care Provider Unavail able Frandy Crisostomo MD, PHD Unavailable Unava ilJaime Santiago PA-C Unavailable [phone] Misael Santamaria MD Primary Care Provider [phone] Encounter Details Date Type Department Care Team Description 12/30/2021 SCAN [facility] [address] [facility] [address] [place] [phone] Savannah Martinez APRN Social History Tobacco Use [...] on filedocumented in this encounter Care Teams Transmission Technician Relationship Specialty Start Date End Date Min Connor MD PCP - General Internal Medicine 03/14/15 03/09/22 Misael Santamaria MD [address] [place] [address] PCP - General Internal Medicine 03/10/22 Frandy Crisostomo MD, PHD Surgeon Neurosurgery 01/23/22 Jaime Combs PA-C [address] [place] [address] Specialist Neurosurgery 01/23/22 documented as of this encounter
--- OUTSIDE RECORDS SUMMARY | 2025-08-17 18:13 | XMS_ITS | Encounter Summary ---
Author Organization [facility] Address [address] [place] [address] Care Team Providers Care Shoe Reconditioner Name Role Phone Min Connor MD Primary Care Provider Unavail able Frandy Crisostomo MD, PHD Unavailable Unava ilJaime Santiago PA-C Unavailable [phone] Misael Santamaria MD Primary Care Provider [phone] Encounter Details Date Type Department Care Team Description 08/28/2016 Senior Clinical Data Manager Report Medical Records [address] [place] [address] Aby Horvath MD Social History Tobacco Use Types Packs/Day [...] on filedocumented in this encounter Care Teams Shoe Reconditioner Relationship Specialty Start Date End Date Min Connor MD PCP - General Internal Medicine 03/14/15 03/09/22 Misael Santamaria MD [address] [place] [address] PCP - General Internal Medicine 03/10/22 Frandy Crisostomo MD, PHD Surgeon Neurosurgery 01/23/22 Jaime Combs PA-C [address] [place] [address] Specialist Neurosurgery 01/23/22 documented as of this encounter
--- OUTSIDE RECORDS SUMMARY | 2025-08-17 18:13 | XMS_ITS | Encounter Summary ---
Author Organization [facility] Address [address] [place] [address] Care Team Providers Care Event Crew Technician Name Role Phone Min Connor MD Primary Care Provider Unavail able Frandy Crisostomo MD, PHD Unavailable Unava ilJaime Santigao PA-C Unavailable [phone] Misael Santamaria MD Primary Care Provider [phone] Encounter Details Date Type Department Care Team Description 12/13/2021 Straddle Carrier Operator Report Medical Records [address] [place] [address] Noemy Ball Social History Tobacco Use Types Packs/Day Years [...] on filedocumented in this encounter Care Teams Event Crew Technician Relationship Specialty Start Date End Date Min Connor MD PCP - General Internal Medicine 03/14/15 03/09/22 Misael Santamaria MD [address] [place] [address] PCP - General Internal Medicine 03/10/22 Frandy Crisostomo MD, PHD Surgeon Neurosurgery 01/23/22 Jaime Combs PA-C [address] [place] [address] Specialist Neurosurgery 01/23/22 documented as of this encounter
--- OUTSIDE RECORDS SUMMARY | 2025-08-17 18:13 | XMS_ITS | Encounter Summary ---
Author Organization [facility] Address [address] [place] [address] Care Team Providers Care Intake Assessor Name Role Phone Frandy Crisostomo MD, PHD Unavailable Unava Jaime Ceballos PA-C Unavailable [phone] Misael Santamaria MD Primary Care Provider [phone] Reason for Visit * Reason Comments E-prescribe Rx Request Encounter Details Date Type Department Care Team Description 06/13/2024 Refill Medicine/Pediatrics - [address] [address] Misael Santamaria MD [address] [place] [address] E-prescribe Rx Request Social History Tobacco Use [...] encounter Miscellaneous Notes * Telephone Encounter - Farrah Maddox M.A. - 06/13/2024 4:31 PM EDT Prescription faxed electronically * Telephone Encounter - Herlinda Wahl M.A. - 06/13/2024 4:14 PM EDT Last office visit 11.19.23 No pending appt / Message was left to book appt Lab Results Component Value Date CHOL 216 11/19/2023 LDL 114 11/19/2023 HDL 57 11/19/2023 TRIG 227 11/19/2023 SGOT 26 11/19/2023 SGPT 33 11/19/2023 * Telephone Encounter - Marilynn Gagnon - 06/13/2024 4:08 PM EDT Patient would like script to be: E-PRESCRIBED/FAXED TO PHARMACY WHEN WAS THE PATIENT'S LAST APPOINTMENT IN ADULT MEDICINE? 11/19/23 WHEN WAS THE LAST TIME THE PATIENT SAW THEIR PCP? Same as above Does patient have an upcoming appointment? No-unable to reach left [facility] to call for appointment due to refill request. Appt due (THE MEDICATION REQUESTED IS ON THE MED LIST ABOVE) All of the medications requested were on the CURRENT MEDS list Did you check the Pharmacy information above?: YES Patient wants: 90 -day supply Is this a mail order prescription request ? NO If the refill is from a FAXED refill request what is the RX # listed on the fax? N/A Patients current insurance carrier is: [place] / [place] / Product Type: MEDICARE [id number] documented in this encounter Plan of Treatment Not on file documented as of this encounter Visit Diagnoses Diagnosis Hyperlipidemia, unspecified hyperlipidemia type documented in this encounter Care Teams Intake Assessor Relationship Specialty Start Date End Date Misael Santamaria MD [address] [place] [address] PCP - General Internal Medicine 03/10/22 Frandy Crisostomo MD, PHD Surgeon Neurosurgery 01/23/22 Jaime Combs PA-C [address] [place] [address] Specialist Neurosurgery 01/23/22 documented as of this encounter
--- OUTSIDE RECORDS SUMMARY | 2025-08-17 18:13 | XMS_ITS | Encounter Summary ---
Author Organization [facility] Address [address] [place] [address] Care Team Providers Care Ritual Circumciser Name Role Phone Min Connor MD Primary Care Provider Unavail able Frandy Crisostomo MD, PHD Unavailable Unava Jaime Ceballos PA-C Unavailable [phone] Misael Santamaria MD Primary Care Provider [phone] Encounter Details Date Type Department Care Team Description 04/09/2016 Transfer Records Medical Records [address] [place] [address] Abstract, Provider Social History Tobacco Use Types [...] on filedocumented in this encounter Care Teams Ritual Circumciser Relationship Specialty Start Date End Date Min Connor MD PCP - General Internal Medicine 03/14/15 03/09/22 Misael Santamaria MD [address] [place] [address] PCP - General Internal Medicine 03/10/22 Frandy Crisostomo MD, PHD Surgeon Neurosurgery 01/23/22 Jaime Combs PA-C [address] [place] [address] Specialist Neurosurgery 01/23/22 documented as of this encounter
--- OUTSIDE RECORDS SUMMARY | 2025-08-17 18:13 | XMS_ITS | Encounter Summary ---
Author Organization [facility] Address [address] [place] [address] Care Team Providers Care Community Artist Name Role Phone Frandy Crisostomo MD, PHD Unavailable Unava ilable Jaime Combs PA-C Unavailable [phone] Misael Santamaria MD Primary Care Provider [phone] Encounter Details Date Type Department Care Team Description 12/29/2023 Pt. Referral Request [address] [address] Md Ayaan Social History Tobacco Use Types Packs/Day Years [...] on filedocumented in this encounter Care Teams Community Artist Relationship Specialty Start Date End Date Misael Santamaria MD [address] [place] [address] PCP - General Internal Medicine 03/10/22 Frandy Crisostomo MD, PHD Surgeon Neurosurgery 01/23/22 Jaime Combs PA-C [address] [place] [address] Specialist Neurosurgery 01/23/22 documented as of this encounter
--- OUTSIDE RECORDS SUMMARY | 2025-08-17 18:13 | XMS_ITS | Encounter Summary ---
Author Organization [facility] Address [address] [place] [address] Care Team Providers Care Sizing Machine Operator Name Role Phone Min Connor MD Primary Care Provider Unavail able Frandy Crisostomo MD, PHD Unavailable Unava ilJaime Santiago PA-C Unavailable [phone] Misael Santamaria MD Primary Care Provider [phone] Encounter Details Date Type Department Care Team Description 02/04/2021 Metal Tile Lather Report Medical Records [address] [place] [address] Stalin Michaud Social History Tobacco Use Types Packs/Day Years [...] or suspected to have Coronavirus / COVID-19? Unable to assess 01/08/2021 8:15 AM EDT documented as of this encounter Plan of Treatment Not on file documented as of this encounter Visit Diagnoses Not on filedocumented in this encounter Care Teams Sizing Machine Operator Relationship Specialty Start Date End Date Min Connor MD PCP - General Internal Medicine 03/14/15 03/09/22 Misael Santamaria MD [address] [place] [address] PCP - General Internal Medicine 03/10/22 Frandy Crisostomo MD, PHD Surgeon Neurosurgery 01/23/22 Jaime Combs PA-C [address] [place] [address] Specialist Neurosurgery 01/23/22 documented as of this encounter
--- OUTSIDE RECORDS SUMMARY | 2025-08-17 18:13 | XMS_ITS | Encounter Summary ---
Author Organization [facility] Address [address] [place] [address] Care Team Providers Care Nailer Operator Name Role Phone Min Connor MD Primary Care Provider Unavail able Frandy Crisostomo MD, PHD Unavailable Unava ilJaime Santiago PA-C Unavailable [phone] Misael Santamaria MD Primary Care Provider [phone] Encounter Details Date Type Department Care Team Description 12/16/2021 Orders Only [facility] Medical [facility] [address] [facility] [address] [place] [phone] Savannah Martinez APRN Cervical radiculopathy; Neck pain Social History Tobacco Use Types Packs/Day Years [...] on file documented as of this encounter Procedures Procedure Name Priority Date/Time Associated Diagnosis Comments MRI OF CERVICAL SPINE NO CONTRAST Routine 12/16/2021 Cervical radiculopathy Neck pain documented in this encounter Results * MRI OF CERVICAL SPINE NO CONTRAST (12/16/2021) Savannah Martinez SHAPER SETTER [facility] documented in this encounter Visit Diagnoses Diagnosis Cervical radiculopathy Brachial neuritis or radiculitis nos Neck pain Cervicalgia documented in this encounter Care Teams Nailer Operator Relationship Specialty Start Date End Date Min Connor MD PCP - General Internal Medicine 03/14/15 03/09/22 Misael Santamaria MD [address] [place] [address] PCP - General Internal Medicine 03/10/22 Frandy Crisostomo MD, PHD Surgeon Neurosurgery 01/23/22 Jaime Combs PA-C [address] [place] [address] [address] [place] [address] Specialist Neurosurgery 01/23/22 documented as of this encounter
--- OUTSIDE RECORDS SUMMARY | 2025-08-17 18:13 | XMS_ITS | Encounter Summary ---
Author Organization [facility] Address [address] [place] [address] Care Team Providers Care Automotive Glass Mechanic Name Role Phone Min Connor MD Primary Care Provider Unavail able Frandy Crisostomo MD, PHD Unavailable Unava Jaime Ceballos PA-C Unavailable Misael Santamaria MD Primary Care Provider [phone] Encounter Details Date Type Department Care Team Description 06/16/2016 Pt. Non Urgent Medical Question Medicine/Pediatrics - [address] [address] Min Connor MD Social History Tobacco Use [...] Notes * Rosa M Rodriguez M.A. - 06/16/2016 9:35 AM EDTFrom: Natalie Weathers To: Min Connor MD Sent: 06/16/2016 9:30 AM EDT Subject: taking estradiol for treating menopausal symptoms Hi Dr. Connor, I sent to see Dr. Gutierrez on 06/03/2016. For the treatment of Hot Flashes, and mood swings. I have been taking Juleber 28 day tablet, for 14 days. I am experiencing nausea and have vomited 3 time. I cannot eat do to feeling nausea all the time. I am also feeling more depressed and sad. My question is, should I go back to see Dr. Gutierrez or come in to see you about this. I went to see Dr. Gutierrez because he is a ob and I have seen him in the past. Please advise. Thank you, Natalie Weathers documented in this encounter Plan of Treatment Not on file documented as of this encounter Visit Diagnoses Not on filedocumented in this encounter Care Teams Automotive Glass Mechanic Relationship Specialty Start Date End Date Min Connor MD PCP - General Internal Medicine 03/14/15 03/09/22 Misael Santamaria MD [address] [place] [address] PCP - General Internal Medicine 03/10/22 Frandy Crisostomo MD, PHD Surgeon Neurosurgery 01/23/22 Jaime Combs PA-C [address] [facility] [address] [place] [address] Specialist Neurosurgery 01/23/22 documented as of this encounter
--- OUTSIDE RECORDS SUMMARY | 2025-08-17 18:13 | XMS_ITS | Encounter Summary ---
Author Organization [facility] Address [address] [place] [address] Care Team Providers Care Assistant Store Manager Operations Name Role Phone Frandy Crisostomo MD, PHD Unavailable Unava ilable Jaime Combs PA-C Unavailable [phone] Misael Santamaria MD Primary Care Provider [phone] Encounter Details Date Type Department Care Team Description 12/24/2023 [facility] Medical Records [address] [place] [address] Mk Tinoco MD Social History Tobacco Use Types Packs/Day [...] on filedocumented in this encounter Care Teams Assistant Store Manager Operations Relationship Specialty Start Date End Date Misael Santamaria MD [address] [place] [id number] PCP - General Internal Medicine 03/10/22 Frandy Crisostomo MD, PHD Surgeon Neurosurgery 01/23/22 Jaime Combs PA-C [address] [facility] [address] [place] [address] Specialist Neurosurgery 01/23/22 documented as of this encounter
--- OUTSIDE RECORDS SUMMARY | 2025-08-17 18:13 | XMS_ITS | Encounter Summary ---
Author Organization [facility] Address [address] [place] [address] Care Team Providers Care Cloud Automation Tester Name Role Phone Frandy Crisostomo MD, PHD Unavailable Unava ilable Jaime Combs PA-C Unavailable [phone] Misael Santamaria MD Primary Care Provider [phone] Encounter Details Date Type Department Care Team Description 09/03/2023 Care Services Manager Report Medical Records [address] [place] [id number] Abstract, Provider Social History Tobacco Use Types [...] on filedocumented in this encounter Care Teams Cloud Automation Tester Relationship Specialty Start Date End Date Misael Santamaria MD [address] [place] [address] [id number] PCP - General Internal Medicine 03/10/22 Frandy Crisostomo MD, PHD Surgeon Neurosurgery 01/23/22 Jaime Combs PA-C [address] [facility] [address] [place] [address] Specialist Neurosurgery 01/23/22 documented as of this encounter
--- OUTSIDE RECORDS SUMMARY | 2025-08-17 18:13 | XMS_ITS | Encounter Summary ---
Author Organization [facility] Address [address] [place] [address] Care Team Providers Care Receivable Manager Name Role Phone Min Connor MD Primary Care Provider Unavail able Frandy Crisostomo MD, PHD Unavailable Unava Jaime Ceballos PA-C Unavailable [phone] Misael Santamaria MD Primary Care Provider [phone] Encounter Details Date Type Department Care Team Description 09/12/2021 Parole Agent Report Medical Records [address] [place] [id number] Abstract, Provider Social History Tobacco Use Types [...] on filedocumented in this encounter Care Teams Receivable Manager Relationship Specialty Start Date End Date Min Connor MD PCP - General Internal Medicine 03/14/15 03/09/22 Misael Santamaria MD [address] [place] [id number] PCP - General Internal Medicine 03/10/22 Frandy Crisostomo MD, PHD Surgeon Neurosurgery 01/23/22 Jaime Combs PA-C [address] [place] [address] Specialist Neurosurgery 01/23/22 documented as of this encounter
--- OUTSIDE RECORDS SUMMARY | 2025-08-17 18:13 | XMS_ITS | Encounter Summary ---
Author Organization [facility] Address [address] [place] [address] Care Team Providers Care Shipping Agent Name Role Phone Frandy Crisostomo MD, PHD Unavailable Unava Jaime Ceballos PA-C Unavailable [phone] Misael Santamaria MD Primary Care Provider [phone] Encounter Details Date Type Department Care Team Description 10/16/2023 Orders Only Medical Records [address] [place] [address] Jazlyn Lucas NP Social History Tobacco Use Types Packs/Day Years [...] Procedure Name Priority Date/Time Associated Diagnosis Comments OUTSIDE ULTRASOUND Routine 10/09/2023 documented in this encounter Results * OUTSIDE ULTRASOUND (10/09/2023) December Kem Lucas NP RADIOLOGY documented in this encounter Visit Diagnoses Not on filedocumented in this encounter Care Teams Shipping Agent Relationship Specialty Start Date End Date Misael Santamaria MD [address] [place] [phone] PCP - General Internal Medicine 03/10/22 Frandy Crisostomo MD, PHD Surgeon Neurosurgery 01/23/22 Jiame Combs PA-C [address] [place] [address] Specialist Neurosurgery 01/23/22 documented as of this encounter
--- OUTSIDE RECORDS SUMMARY | 2025-08-17 18:13 | XMS_ITS | Encounter Summary ---
Author Organization [facility] Address [address] [place] [address] Care Team Providers Care Locum Tenens Name Role Phone Frandy Crisostomo MD, PHD Unavailable Unava ilable Jaime Combs PA-C Unavailable [phone] Misael Santamaria MD Primary Care Provider [phone] Encounter Details Date Type Department Care Team Description 01/21/2024 Chief Drafter Report Medical Records [address] [place] [address] Jazlyn Lucas E, NABIL Social History Tobacco [...] on filedocumented in this encounter Care Teams Locum Tenens Relationship Specialty Start Date End Date Misael Santamaria MD [address] [place] [address] PCP - General Internal Medicine 03/10/22 Frandy Crisostomo MD, PHD Surgeon Neurosurgery 01/23/22 Jaime Combs PA-C [address] [facility] [address] [place] [address] Specialist Neurosurgery 01/23/22 documented as of this encounter
--- OUTSIDE RECORDS SUMMARY | 2025-08-17 18:13 | XMS_ITS | Encounter Summary ---
Author Organization [facility] Address [address] [place] [address] Care Team Providers Care Transportation Services Representative Name Role Phone Min Connor MD Primary Care Provider Unavail able Frandy Crisostomo MD, PHD Unavailable Unava ilable Jaime Combs PA-C Unavailable [phone] Misael Santamaria MD Primary Care Provider [phone] Reason for Visit * Reason Onset Date Comments refill request 08/08/2020 Encounter Details Date Type Department Care Team Description 08/08/2020 Refill Adult Medicine [address] [address] Min Connor MD refill request Social History [...] encounter Miscellaneous Notes * Telephone Encounter - Rosa M Rodriguez M.A. - 08/08/2020 2:13 PM EST Date of last office visit was 05/08/20 No CSC for this medication. Lab Results Component Value Date NA 136 05/08/2020 K 4.2 05/08/2020 CO2 27 05/08/2020 CL 104 05/08/2020 BUN 13 05/08/2020 CREAT 0.68 05/08/2020 GLU 91 05/08/2020 CA 9.8 05/08/2020 GFR > 60 05/08/2020 * Telephone Encounter - Marilynn Violet - 08/08/2020 12:02 PM EST Patient would like script to be: E-PRESCRIBED/FAXED TO PHARMACY WHEN WAS THE PATIENT'S LAST APPOINTMENT IN ADULT MEDICINE? 05/08/2020 WHEN WAS THE LAST TIME THE PATIENT SAW THEIR PCP? 05/08/2020 Does patient have an upcoming appointment? No-patient refused appointment, will call back to book appointment (THE MEDICATION REQUESTED IS ON THE MED [...] N/A Patients current insurance carrier is: Payor: [employer] / Plan: [email or web address] / Product Type: MEDICAID RISK documented in this encounter Plan of Treatment Not on file documented as of this encounter Visit Diagnoses Not on filedocumented in this encounter Care Teams Transportation Services Representative Relationship Specialty Start Date End Date Min Connor MD PCP - General Internal Medicine 03/14/15 03/09/22 Misael Santamaria MD [address] [place] [address] PCP - General Internal Medicine 03/10/22 Frandy Crisostomo MD, PHD Surgeon Neurosurgery 01/23/22 Jaime Combs PA-C [address] [place] [address] Specialist Neurosurgery 01/23/22 documented as of this encounter
== END 2025-08-17 12:24 | disposition home or self-care (01) ==
LOC: HO.HGI 12:01
PROVIDERS: PCP Internal Medicine; Visit Provider Nurse Practitioner
DX: K59.04 Chronic idiopathic constipation (principal); K21.9 Gastro-esophageal reflux disease without esophagitis
CPT/HCPCS: 99213

== ENCOUNTER → 2025-08-17 12:00 | Outpatient (BNVA) | payer MEDICARE, MEDICAID, SELFPAY | PROVIDERS: PCP Internal Medicine; Visit Provider Nurse Practitioner | DX: K59.04 Chronic idiopathic constipation (principal); K21.9 Gastro-esophageal reflux disease without esophagitis; R14.0 Abdominal distension (gaseous); R10.12 Left upper quadrant pain | CPT/HCPCS: 99212 ==